=== PATIENT | male | born 1945 | race Hispanic/Latino ===

== ENCOUNTER 2016-08-19 17:58 | Inpatient (IN) | payer MEDICARE ==
[2016-08-19 18:01] VITALS: BMI 27.7
[2016-08-19] MEDS ORDERED: Multivitamin (MVI) 10 ML, Folic Acid 1 MG, Thiamine 100 MG in Dextrose 5%/0.45% NS 1,00... IV ONE (18:04)
[2016-08-19] MEDS ORDERED: diltiaZEM 100 mg Vial ( ADD-VANTAGE ) IV ONE (18:12)
--- NOTE | 2016-08-19 18:22 | ED PDOC ---
HPI: Seizure Time Seen by Provider: 08/19/16 18:00 Chief Complaint (Nursing): Seizure Chief Complaint (Provider): Seizure History Per: EMS History/Exam Limitations: clinical condition Recent Seizure Activity Began: Just Before Arrival Number Of Seizures: Multiple (3) Additional History Per: EMS Additional Complaint(s): The pt is a 71yo male, brought to the ED by EMS for evaluation of 3x episodes of witnessed seizures. A full HPI and ROS is unavailable as pt is not a reliable historian due to his clinical condition. History recorded per EMS and prior charts; pt was given Ativan on field and was post ictal upon arrival. Noted left sided weakness. Based on previous charts, patient has history of alcohol withdrawals, seizures, CVA, HTN, AFib and CHF. Per EMS, the family reported the pt had recently stopped drinking alcohol and is non-compliant with his medications. PCP: Dr. Carver NIHSS Stroke Scale - Date/Time Evaluation Performed Date Performed: 08/19/16 Time Performed: 06:20 When Was NIHSS Performed: Baseline - How Severe is the Stroke Level of Consciousness: 1=Drowsy LOC to Questions: 1=One correct LOC to commands: 1=Obeys one correctly Best Gaze: 0=Normal Visual: 0=No visual loss Facial: 0=Normal Motor Arm - Left: 4=No movement Motor Arm - Right: 0=No drift Motor Leg - Left: 4=No movement Motor Leg - Right: 0=No drift Limb Ataxia: 0=Absent Sensory: 1=Mild to moderate loss Best Language: 1=Mild to moderate aphasia Dysarthia: 0=Normal articulation Extinction & Inattention (Neglect): 0=Normal, no object Score: 13 rTPA Inclusion/Exclusion - Inclusion Criteria for Altepase Patient is 18 years or Older: Yes The Clinical Diagnosis of Ischemic Stroke That is Causing a Potentially Disabling Neurological Deficit: Yes Time of Onset is Well Established to be Less Than 270 Minute Before Treatment Would Begin: No Risk/Benefit Discussed With Patient/Family Member Present: No Past Medical History Reviewed: Historical Data, Nursing Documentation, Vital Signs Vital Signs: Last Vital Signs Temp 98.8 F 08/20/16 08:00 Pulse 88 08/20/16 08:00 Resp 16 08/20/16 08:00 BP 122/46 L 08/20/16 08:00 Pulse Ox 100 08/20/16 08:00 - Medical History PMH: Alzheimer's Disease (early stage of alzheimer), Arthritis, Atrial Fibrillation, CAD, Cardia Arrhythmia, CHF, HTN, Hypercholesterolemia, Seizures Denies: HIV, Kidney Stones, Chronic Kidney Disease - Surgical History Surgical History: CABG, Coronary Stent - Family History Family History: States: Unknown Family Hx - Home Medications Home Medications: Ambulatory Orders Medication Instructions Recorded Aspirin [Aspirin EC] 325 mg PO DAILY #0 tablet 11/02/15 Atorvastatin [Lipitor] 20 mg PO DAILY #0 tab 11/02/15 Enoxaparin [Lovenox] 40 mg SC DAILY #0 syr 11/02/15 Finasteride [Proscar] 5 mg PO DAILY #0 tab 11/02/15 Folic Acid 1 mg PO DAILY #0 tab 11/02/15 Lisinopril [Zestril] 10 mg PO DAILY@1700 #0 tab 11/02/15 Metoprolol Tartrate [Lopressor] 12.5 mg PO Q12 #0 tab 11/02/15 Multimineral/Multivitamin 1 tab PO DAILY #0 tab 11/02/15 [Therapeutic-M Tab] Pantoprazole [Protonix EC Tab] 40 mg PO BID@1300,2100 #0 ect 11/02/15 Thiamine [Vitamin B-1] 100 mg PO TID #0 tab 11/02/15 amLODIPine [Norvasc] 10 mg PO DAILY #0 tab 11/02/15 cefTRIAXone 1 gm [Rocephin 1 gram 1 gm IVPB DAILY #0 bag 11/02/15 IVPB] cloNIDine 0.1 mg/24 hr [catapres 1 patch TD Q7D #0 patch 11/02/15 TTS1 0.1 mg/24 hr] hydrALAZINE [hydralazine 25 mg PO TID #0 tab 11/02/15 Hydrochloride] - Allergies Allergies/Adverse Reactions: Allergies Allergy/AdvReac Type Severity Reaction Status Date / Time No Known Allergies Allergy Verified 09/15/15 10:46 Review of Systems ROS Statement: Except As Marked, All Systems Reviewed And Found Negative Review Of Systems: ROS cannot be obtained secondary to pt's inabilty to answer questions. Neurological: Positive for: Seizures (x3) Physical Exam - Reviewed Nursing Documentation Reviewed: Yes Vital Signs Reviewed: Yes - Physical Exam Appears: Positive for: Well, Non-toxic, No Acute Distress Head Exam: Positive for: ATRAUMATIC, NORMAL INSPECTION, NORMOCEPHALIC Skin: Positive for: Dry, Diaphoresis Eye Exam: Positive for: Normal appearance, EOMI, PERRL ENT: Positive for: Normal ENT Inspection Neck: Positive for: Normal, Supple Cardiovascular/Chest: Positive for: Irregularly Irregular Respiratory: Positive for: Other (coarse breath sounds bilaterally ) Pulses-Radial (L): 2+ Pulses-Radial (R): 2+ Gastrointestinal/Abdominal: Positive for: Normal Exam, Soft. Negative for: Tenderness Back: Positive for: Normal Inspection Extremity: Negative for: Deformity, Swelling Neurologic/Psych: Positive for: Motor/Sensory Deficits (known left sided weakness to arm and leg; right extremities normal) - Laboratory Results Result Diagrams: 08/20/16 04:25 08/20/16 04:25 - ECG ECG: Positive for: Interpreted By Me, Viewed By Me ECG Rhythm: Positive for: Normal QRS, Normal ST Segment, Atrial Fibrillation, Nonspecific Changes Interpretation Of Abn EKG: LAD Rate: 118 O2 Sat by Pulse Oximetry: 95 - Radiology X-Ray: Interpreted by Me, Viewed By Me X-Ray Interpretation: Infiltrates - Critical Care Total Time (In Min): 60 Documented Critical Care: Time excludes all time spent performint seperately billable procedures Medical Decision Making Medical Decision Making: Time: 1800 Impression: Seizure Plan: -- CT Head -- Ammonia -- Hemoglobin A1C -- Liver Profile -- Prolactin -- Vitamin B12 -- Cardiology Consult -- Neurology Consult -- ED Urine dipstick -- EKG- ED -- CBC with differential -- PTT -- Prothrombin Time -- CXR -- Aspirin 300 mg AL -- Dextrose 5%/1000 ml IV 125 ml/hr -- Cardizem 125mg/125 ml NS -- Cardizem 15 mg IVP -- Lovenox 100 mg SC -- Magnesium Sulfate 2gm/100 ml IVPB -- Zosyn 3.375 gm IVPB -- Blood Culture -- UA -- Reassess Time: 1824 EXAM: CT Head Without Intravenous Contrast CLINICAL HISTORY: 71 years old, male; Signs and symptoms; Other: Seizure; Patient HX: HX of seizure TECHNIQUE: Axial computed tomography images of the head/brain without intravenous contrast. This CT exam was performed using one or more of the following dose reduction techniques: automated exposure control, adjustment of the mA and/or kV according to patient size, and/or use of iterative reconstruction technique. Coronal and sagittal reformatted images were created and reviewed. EXAM DATE/TIME: 08/19/2016 6:01 PM COMPARISON: CT - HEAD W/O CONTRAST 10/29/2015 9:17:38 PM FINDINGS: Brain: There is dilatation of sulci gyri and ventricles. There is no midline shift. There is decreased attenuation in periventricular white matter. There is an old left periventricular white matter infarct. There is an old right occipital infarct. There is less extensive left occipital encephalomalacia, unchanged. There is an old right cerebellar infarct. There are no focal masses. There are no focal hemorrhages. Carter-white differentiation is visualized. Ventricles: See above Bones/joints: Bones: Cranial vault is intact. Soft tissues: unremarkable Sinuses: There is no acute sinusitis. There is minimal mucoperiosteal thickening in the maxillary sinuses. Mastoid air cells: Ears and mastoids: Middle ears and mastoids are unremarkable. Orbits: Orbital contents are unremarkable. IMPRESSION: Atrophy and small vessel disease; old infarcts; no bleed; no acute intracranial abnormality Time: [address] Celestin, neurologist math interventionist who agrees that pt is not a candidate for TPA due to seizures. Agrees with anticoagulation. Do not recommends AED at this time. Possibility of DT Patient has history of CHF and can not be given IVF boolus as per sepsis protocol. Pt is in CHF at this time. Lactate is elevated above 4 is likely more from recent multiple seizures than from infection. Pt has have sepsis criteria but no code sepsis in my opinion: not hypotensive and no signs of shock and lactic acid is elevated from seizures. Diff include DTs from alcohol who presents as sepsis. Time: [address] Greer, precision layout worker math interventionist. Case discussed with Dr. James, hoop riveting machine operator helper. Pt to be admitted to ICU. Scribe Attestation: Documented by Jonna Jensen acting as a scribe for Shaila Bagley MD. Provider Attestation: All medical record entries made by the Scribe were at my direction and personally dictated by me. I have reviewed the chart and agree that the record accurately reflects my personal performance of the history, physical exam, medical decision making, and the department course for this patient. I have also personally directed, reviewed, and agree with the discharge instructions and disposition. Disposition - Clinical Impression Clinical Impression: Seizure disorder, Sepsis, CVA (cerebral vascular accident), Severe sepsis, Alcohol withdrawal seizure, Atrial fibrillation with RVR, CHF (congestive heart failure), Pneumonia, ARF (acute renal failure) - Patient ED Disposition Is Patient to be Admitted: Yes Discussed With : Neymar rGeer Doctor Will See Patient In The: ED - Disposition Disposition Time: 18:50 Condition: CRITICAL - Pt Status Changed To: Hospital Disposition Of: Inpatient - Admit Certification Admit to Inpatient:: After my assessment, the patient will require hospitalization for at least two midnights. This is because of the severity of symptoms shown, intensity of services needed, and/or the medical risk in this patient being treated as an outpatient. - POA Present On Arrival: Poor Glycemic Control Core Measure Indicators: Code Stroke, Pneumonia
--- NOTE | 2016-08-19 18:25 | CT ---
EXAM: CT Head Without Intravenous Contrast CLINICAL HISTORY: 71 years old, male; Signs and symptoms; Other: Seizure; Patient HX: HX of seizure TECHNIQUE: Axial computed tomography images of the head/brain without intravenous contrast. This CT exam was performed using one or more of the following dose reduction techniques: automated exposure control, adjustment of the mA and/or kV according to patient size, and/or use of iterative reconstruction technique. Coronal and sagittal reformatted images were created and reviewed. EXAM DATE/TIME: 08/19/2016 6:01 PM COMPARISON: CT - HEAD W/O CONTRAST 10/29/2015 9:17:38 PM FINDINGS: Brain: There is dilatation of sulci gyri and ventricles. There is no midline shift. There is decreased attenuation in periventricular white matter. There is an old left periventricular white matter infarct. There is an old right occipital infarct. There is less extensive left occipital encephalomalacia, unchanged. There is an old right cerebellar infarct. There are no focal masses. There are no focal hemorrhages. Carter-white differentiation is visualized. Ventricles: See above Bones/joints: Bones: Cranial vault is intact. Soft tissues: unremarkable Sinuses: There is no acute sinusitis. There is minimal mucoperiosteal thickening in the maxillary sinuses. Mastoid air cells: Ears and mastoids: Middle ears and mastoids are unremarkable. Orbits: Orbital contents are unremarkable. IMPRESSION: Atrophy and small vessel disease; old infarcts; no bleed; no acute intracranial abnormality
[2016-08-19] MEDS ORDERED: Enoxaparin 100 mg Syringe SC STA (18:28)
[2016-08-19 18:30] LABS: BASO % 0.2 % (0.0-2.0); HEMOGLOBIN 13.7 g/dL (12.0-18.0); LYMPH # 0.7 K/uL (1.0-4.3); LYMPH % 6.8 % (20.0-40.0); MEAN CELL VOLUME 102.6 fl (80.0-94.0); MEAN CORPUSCULAR HEMOGLOBIN 34.8 pg (27.0-31.0); MEAN CORPUSCULAR HGB CONC 33.9 g/dL (33.0-37.0); MONO # 0.8 K/uL (0.0-0.8); MONO % 7.7 % (0.0-10.0); NEUT # 8.7 K/uL (1.8-7.0); NEUT % 85.3 % (50.0-75.0); NRBC % 0.1 % (0.0-0.0); RBC 3.95 Mil/uL (4.40-5.90); RED CELL DISTRIBUTION WIDTH 15.6 % (11.5-14.5); WHITE BLOOD COUNT 10.1 K/uL (4.8-10.8)
[2016-08-19 18:32] LABS: VENOUS BLOOD GAS BASE EXCESS 3.7 mmol/L (0.0-2.0); VENOUS BLOOD GAS PCO2 39 mmHg (40-60); VENOUS BLOOD GAS PO2 20 mm/Hg (30-55); VENOUS BLOOD PH 7.46 (7.32-7.43)
[2016-08-19 18:41] LABS: ALBUMIN 3.9 g/dL (3.5-5.0); ALT/SGPT 59 U/L (21-72); AST/SGOT 59 U/L (17-59); BLOOD UREA NITROGEN 32 mg/dl (9-20); CALCIUM 8.8 mg/dL (8.4-10.2); GFR AFRICAN-AMERICAN 43; GFR NON-AFRICAN AMERICAN 35; MAGNESIUM 1.5 MG/DL (1.6-2.3)
[2016-08-19] MEDS ORDERED: Piperacillin/Tazobact 3.375 GM in Sodium Chloride 0.9% 100 ML IVPB STA (18:42)
[2016-08-19] MEDS ORDERED: Piperacillin/Tazobact 3.375 gm Inj IVPB ONE (18:49)
--- NOTE | 2016-08-19 19:02 | CP.PCM.CON ---
History of Present Illness - History of Present Illness History of Present Illness: RECURRENT SEIZURES AT HOME WITH HX ETOH ABUSE AT THE FIELD HE GOT ATIVAN FOUND TO BE LEFT HEMIPARESIS Review of Systems - Review of Systems Systems not reviewed;Unavailable: Altered Mental Status, Intoxicated, Uncooperative - Constitutional Constitutional: Fatigue Past Patient History - Tetanus Immunizations Tetanus Immunization: >10 years Ago - Past Medical History & Family History Past Medical History?: Yes - Past Social History Smoking Status: Light Smoker < 10 Cigarettes Daily Alcohol: Other (ETOH ABUSE) Drugs: Methamphetamine - CARDIAC Hx Atrial Fibrillation: Yes Hx Cardia Arrhythmia: Yes Hx Congestive Heart Failure: Yes Hx Hypercholesterolemia: Yes Hx Hypertension: Yes - PULMONARY Hx Respiratory Disorders: No - NEUROLOGICAL Hx 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) Hx 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 DOCUMENTATION ) Hx Seizures: Yes Hx Transient Ischemic Attacks (TIA): Yes - HEENT Hx HEENT Problems: No - RENAL Hx Chronic Kidney Disease: No Hx Kidney Stones: No - ENDOCRINE/METABOLIC Hx Diabetes Mellitus Type 2: Yes - HEMATOLOGICAL/ONCOLOGICAL Hx Human Immunodeficiency Virus (HIV): No - INTEGUMENTARY Hx Dermatological Problems: No - MUSCULOSKELETAL/RHEUMATOLOGICAL Hx Arthritis: Yes - GASTROINTESTINAL Hx Constipation: Yes - GENITOURINARY/GYNECOLOGICAL Hx Genitourinary Disorders: No - PSYCHIATRIC Hx Psychophysiologic Disorder: Yes Hx Substance Use: No - SURGICAL HISTORY Hx Coronary Artery Bypass Graft: Yes Hx Coronary Stent: Yes - ANESTHESIA Hx Anesthesia: Yes Hx Anesthesia Reactions: No Meds Allergies/Adverse Reactions: Allergies Allergy/AdvReac Type Severity Reaction Status Date / Time No Known Allergies Allergy Verified 09/15/15 10:46 - Medications Medications: Current Medications Multivitamins/Vitamin C 10 ml/Folic Acid 1 mg/ Thiamine HCl 100 mg/ Dextrose/ Sodium Chloride 1,011.2 mls @ 125 mls/hr IV .Q8H6M ONE Stop: 08/20/16 02:09 Last Admin: 08/19/16 18:52 Dose: 125 mls/hr Diltiazem HCl 125 mg/ Sodium (Chloride) 125 mls @ 5 mls/hr IV .Q24H ONE; 5 MG/ HR PRN Reason: Protocol Stop: 08/20/16 18:05 Last Admin: 08/19/16 18:52 Dose: 5 mls/hr Piperacillin Sod/Tazobactam (Sod 3.375 gm/ Sodium Chloride) 100 mls @ 100 mls/ hr IVPB STAT STA Stop: 08/19/16 19:41 Last Admin: 08/19/16 18:56 Dose: 100 mls/hr Physical Exam - Constitutional Appears: Toxic, Agitated, Confused, Other Additional comments: SEDATED - Eye Exam Additional comments: APHAKIC - Neck Exam Neck exam: Positive for: Normal Inspection - Neurological Exam Neurological exam: Motor Sensory Deficit - Expanded Neurological Exam Expanded Neurological exam: Tremor Patient oriented to: person Speech: Stutter Cranial nerves: Facial Palsey w/Forehead Movement: Abnormal Left, Facial Sensation: Normal, Gag Reflex: Normal (IMPAIRED ), Nystagmus: Normal Ataxia: No (LEFT HEMIPLEGIC) Upper motor neuron: Babinski Sign: Abnormal Left Results - Vital Signs Recent Vital Signs: Last Vital Signs Temp 102 F H 08/19/16 18:00 Pulse 118 H 08/19/16 18:57 Resp 20 08/19/16 18:00 BP 112/64 08/19/16 18:25 Pulse Ox 95 08/19/16 18:57 - Labs Result Diagrams: 08/19/16 18:00 08/19/16 18:00 - Imaging and Cardiology CT scan - head Status: Image reviewed by me (ATROPHY AND OLE INFARCT) Assessment & Plan (1) Alcohol abuse with alcohol-induced disorder Assessment and Plan: B1/ AND MVT DT WATCH HYDRATION HOLD FEEDING AFIB ON CARDIAZEM DRIP AND LOVENOX CHECK EEG / MRI ANTIBIOTIC APPROPRIATE FOR HIS PNUEMONIA SOCIAL SERVICE NO AED FOR HIM NOW CAROTID AND MRI Status: Acute - Date & Time Date: 08/19/16 Time: 19:10
[2016-08-19 19:05] LABS: B-TYPE NATRIURETIC PEPTIDE 34800 pg/ml (0-900)
[2016-08-19] MEDS ORDERED: Magnesium Sulfate 2 GM in Sodium Chloride 0.9% 100 ML IVPB ONE (19:07)
--- NOTE | 2016-08-19 19:38 | CP.PCM.HP ---
History of Present Illness - History of Present Illness History of Present Illness: PCP: jim Carver MD Chief Complaint: Seizure HPI: The hx is obtained from the medical records as the patient is lethargic and post ictal. He is a 71 years old male with hx of non compliance with medication, CVA, CAD s/p CABG, CHF, Alcohol abuse and intoxication, A Fib, and Seizure who was brought from home to the ED because of 3 episodes of witnessed seizures. The EMS administered Ativan 2mg IV. In the ED the patient was found to be in A Fib with rapid response, have a Temperature of 102F, Dysarthric, with left side weakness and a NIHSS of 13. No TPA given because of the patient' s Rapid A Fib and the multiple seizures. He indicated that he had been coughing. PMH: (early stage of alzheimer), Arthritis, Atrial Fibrillation, CAD, CHF, HTN , HLD, Seizures, PVD, Diverticulosis, CVA PSH: CABG, Coronary Stent SH: Light smoker; Former Alcohol abuser with admissions for Intoxications, Live with family, No illegal drug use FH: Unknown Family Hx Allergies: NKDA Present on Admission - Present on Admission Any Indicators Present on Admission: No History of DVT/PE: No History of Uncontrolled Diabetes: No Urinary Catheter: No Decubitus Ulcer Present: No Review of Systems - Review of Systems Systems not reviewed;Unavailable: Altered Mental Status Review of Systems: Review of systems is limited because of the patient is post ictal and lethargic Past Patient History - Tetanus Immunizations Tetanus Immunization: >10 years Ago - Past Medical History & Family History Past Medical History?: Yes - Past Social History Smoking Status: Light Smoker < 10 Cigarettes Daily Chewing Tobacco Use: No Cigar Use: No Alcohol: Other (ETOH ABUSE) Drugs: Methamphetamine Home Situation {Lives}: With Family - CARDIAC Hx Atrial Fibrillation: Yes Hx Cardia Arrhythmia: Yes Hx Congestive Heart Failure: Yes Hx Hypercholesterolemia: Yes Hx Hypertension: Yes - PULMONARY Hx Respiratory Disorders: No - NEUROLOGICAL Hx 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) Hx Seizures: Yes - HEENT Hx HEENT Problems: No - RENAL Hx Chronic Kidney Disease: No Hx Kidney Stones: No - ENDOCRINE/METABOLIC Hx Diabetes Mellitus Type 2: Yes - HEMATOLOGICAL/ONCOLOGICAL Hx Human Immunodeficiency Virus (HIV): No - INTEGUMENTARY Hx Dermatological Problems: No - MUSCULOSKELETAL/RHEUMATOLOGICAL Hx Arthritis: Yes - GASTROINTESTINAL Hx Constipation: Yes - GENITOURINARY/GYNECOLOGICAL Hx Genitourinary Disorders: No - PSYCHIATRIC Hx Psychophysiologic Disorder: Yes Hx Substance Use: No - SURGICAL HISTORY Hx Coronary Artery Bypass Graft: Yes Hx Coronary Stent: Yes - ANESTHESIA Hx Anesthesia: Yes Hx Anesthesia Reactions: No Meds Allergies/Adverse Reactions: Allergies Allergy/AdvReac Type Severity Reaction Status Date / Time No Known Allergies Allergy Verified 09/15/15 10:46 Physical Exam - Constitutional Appears: No Acute Distress - Head Exam Head Exam: NORMOCEPHALIC - Eye Exam Pupil Exam: NORMAL ACCOMODATION Additional comments: Pupils equal and reacting to light. Left Ptosis - ENT Exam ENT Exam: Mucous Membranes Moist, Normal External Ear Exam, Normal Oropharynx - Neck Exam Neck exam: Positive for: Normal Inspection. Negative for: Lymphadenopathy, Tenderness - Respiratory Exam Respiratory Exam: absent: Rhonchi, Wheezes Additional comments: Inspiratory rales at the right lung base - Cardiovascular Exam Cardiovascular Exam: Irregular Rhythm, +S1, +S2. absent: Gallop, JVD - GI/Abdominal Exam GI & Abdominal Exam: Normal Bowel Sounds, Soft. absent: Mass, Organomegaly, Tenderness - Rectal Exam Rectal Exam: Deferred - Extremities Exam Extremities exam: Positive for: normal inspection. Negative for: joint swelling , pedal edema, tenderness - Back Exam Back exam: NORMAL INSPECTION. absent: CVA tenderness (L), CVA tenderness (R) - Neurological Exam Additional comments: Awake and lethargic. opens the right eye with left ptosis, left facial droop, shakes his head to answer most questions, Dysarthric with motor aphasia. Motor strength 0/5 at the left upper extremity and 3/5 at the left lower extremity. - Psychiatric Exam Psychiatric exam: Flat Affect - Skin Skin Exam: Dry, Intact, Normal Color, Warm Results - Vital Signs Recent Vital Signs: Last Vital Signs Temp 102 F H 08/19/16 18:00 Pulse 118 H 08/19/16 19:31 Resp 22 08/19/16 19:08 BP 127/73 08/19/16 19:08 Pulse Ox 95 08/19/16 19:31 - Labs Result Diagrams: 08/19/16 18:00 08/19/16 18:00 - Imaging and Cardiology CT scan - head Status: Image reviewed by me, Report reviewed by me Additional comment: FINDINGS: Brain: There is dilatation of sulci gyri and ventricles. There is no midline shift. There is decreased attenuation in periventricular white matter. There is an old left periventricular white matter infarct. There is an old right occipital infarct. There is less extensive left occipital encephalomalacia, unchanged. There is an old right cerebellar infarct. There are no focal masses. There are no focal hemorrhages. Carter-white differentiation is visualized. Ventricles: See above Bones/joints: Bones: Cranial vault is intact. Soft tissues: unremarkable Sinuses: There is no acute sinusitis. There is minimal mucoperiosteal thickening in the maxillary sinuses. Mastoid air cells: Ears and mastoids: Middle ears and mastoids are unremarkable. Orbits: Orbital contents are unremarkable. IMPRESSION: Atrophy and small vessel disease; old infarcts; no bleed; no acute intracranial abnormality Assessment & Plan - Assessment and Plan (Free Text) Assessment: #. Status Epilepticus #. Pneumonia #. Sepsis #. A Fib with RVR #. CHF #. Elevated Troponin #. JONELLE #. hyperglycemia #. Chronic Thrombocytopenia Plan: 71 years old male with hx of non compliance with medication, CVA, CAD s/p CABG , CHF, Alcohol abuse with intoxication, A Fib, and Seizure who was brought from home to the ED because of 3 episodes of witnessed seizures. In the ED the patient was found to be in A Fib with rapid response, have a Temperature of 102F , Dysarthric, with left side weakness and a NIHSS of 13. #. Status Epilepticus due to Alcohol withdrawal v/s CVA - Admit to ICU - Consult Dr Celestin neurology who ordered EEG - Ativan 2mg IV q6Hrs PRN for seizures #. Left side weakness due to an acute on chronic CVA most likely. r/o Todds Paralysis - Neurology on consult and ordered MRI and MRA of Brain and Carotid arteries - Neuro checks q1Hour - Swallow evaluation - ASA - Lipitor before discharge - OT/PT #. Aspiration Pneumonia - Consult Dr Rodriguez Avionics Repair Technician - follow repeated CXR - Zosyn #. Severe Sepsis - consult Dr Tello ID - follow Blood culture - Zosyn #. A Fib with RVR - Cardiac monitoring - Consult Dr James cardiology - Lovenox 1mg/kg - Cardizem IV drip #. Chronic CHF - Cardiology on consult - ECHO for EF - Judicious use of IV Fluids - #. Elevated Troponin r/o NSTEMI - Follow Serial troponin - serial EKG - ECHO for wall motion #. JONELLE - IV Fluids - Follow Renal labs #. hHperglycemia r/o DM - Follow HbA1c #. Chronic Thrombocytopenia #. Stress ulcer prophylaxis with pantoprazole #. DVT Prophylaxis -Patient on Sub Q lovenox and SCD #. Code Status Full - Date & Time Date: 08/19/16 Time: 19:38
[2016-08-19] MEDS ORDERED: Magnesium Sulfate 2 gm/50 ml 2 GM/50 ML BAG IVPB ONE (19:45)
[2016-08-19 20:14] LABS: ALB/GLOB RATIO 0.9 (1.0-2.1); ALBUMIN 3.6 g/dL (3.5-5.0); BILIRUBIN,DIRECT 0.5 mg/ml (0.0-0.4)
[2016-08-19 20:22] LABS: PLATELET COUNT 95 K/uL (130-400)
[2016-08-19 20:26] LABS: PROTHROMBIN TIME 10.8 Seconds (9.8-13.1)
[2016-08-19 20:27] LABS: PARTIAL THROMBOPLASTIN TIME 22.9 Seconds (25.6-37.1)
[2016-08-19 20:40] LABS: SQUAMOUS EPITHIAL < 1 /hpf (0-5); URINE BACTERIA RARE (<OCC); URINE BILIRUBIN SMALL (NEGATIVE); URINE BLOOD SMALL (NEGATIVE); URINE CLARITY CLOUDY (Clear); URINE COLOR AMBER (YELLOW); URINE GLUCOSE (UA) NEG (Normal); URINE LEUKOCYTE ESTERASE MOD Leu/uL (Negative); URINE NITRATE NEGATIVE (NEGATIVE); URINE PROTEIN >=500 mg/dL (NEGATIVE)
[2016-08-20] MEDS: Enoxaparin 100 mg Syringe SC SCH ×2 (01:00→08:52)
[2016-08-20] MEDS: Dextrose 5%/0.45% NS 1,000 ML IV SCH ×2 (03:05→12:44)
[2016-08-20] MEDS: Piperacillin/Tazobact 3.375 GM in Sodium Chloride 0.9% 100 ML IVPB SCH ×2 (05:00→09:01)
[2016-08-20 05:11] LABS: BASO % 0.4 % (0.0-2.0); EOS % 0.1 % (0.0-4.0); HEMOGLOBIN 11.8 g/dL (12.0-18.0); LYMPH # 1.3 K/uL (1.0-4.3); LYMPH % 12.5 % (20.0-40.0); MEAN CELL VOLUME 103.3 fl (80.0-94.0); MEAN CORPUSCULAR HEMOGLOBIN 35.1 pg (27.0-31.0); MEAN PLATELET VOLUME 10.4 fl (7.2-11.7); MONO # 1.1 K/uL (0.0-0.8); NEUT # 8.3 K/uL (1.8-7.0); NRBC % 0.1 % (0.0-0.0); RBC 3.37 Mil/uL (4.40-5.90); RED CELL DISTRIBUTION WIDTH 15.6 % (11.5-14.5); WHITE BLOOD COUNT 10.7 K/uL (4.8-10.8)
[2016-08-20 05:21] LABS: ALB/GLOB RATIO 0.9 (1.0-2.1); ALBUMIN 3.2 g/dL (3.5-5.0); MAGNESIUM 1.9 MG/DL (1.6-2.3)
[2016-08-20 05:31] LABS: TROPONIN I 0.592 ng/mL (0.00-0.120)
--- NOTE | 2016-08-20 07:07 | CP.PCM.PN ---
Subjective - Date & Time of Evaluation Date of Evaluation: 08/20/16 Time of Evaluation: 08:00 - Subjective Subjective: Patient seen and evaluated bedside. Awake, alert and oriented x 3 with slurred speech and left side weakness . Does not remember what happened yesterday. Hemodynamically stable at present BP 122/46, afib on monitor with controlled HR 88 while on cardizem drip Complaining of coughing episodes unable to expectorate Tmax 102 in ER Saturating 100 % on 2 L O2 via NC WBC 10 Hgb 11 plt 81 K K 3.0 BUN/Cr 30/1.6 trop 0.59 Objective - Vital Signs/Intake and Output Vital Signs (last 24 hours): Temp Pulse Resp BP Pulse Ox 98.1 F 88 16 130/85 98 08/20/16 04:00 08/20/16 06:00 08/20/16 06:00 08/20/16 06:00 08/20/16 06:00 Intake and Output: 08/20/16 08/20/16 06:59 18:59 Intake Total 225 Balance 225 - Medications Medications: Current Medications Aspirin (Aspirin Supp) 300 mg KS DAILY ROBERT Enoxaparin Sodium (Lovenox) 95 mg SC Q12 ROBERT PRN Reason: Protocol Last Admin: 08/20/16 01:00 Dose: 95 mg Diltiazem HCl 125 mg/ Sodium (Chloride) 125 mls @ 5 mls/hr IV .Q24H ONE; 5 MG/ HR PRN Reason: Protocol Stop: 08/20/16 18:05 Last Admin: 08/20/16 03:01 Dose: 10 mg/hr, 10 mls/hr Piperacillin Sod/Tazobactam (Sod 3.375 gm/ Sodium Chloride) 100 mls @ 100 mls/ hr IVPB Q6 ROBERT Last Admin: 08/20/16 05:00 Dose: 100 mls/hr Dextrose/Sodium Chloride (Dextrose 5%/0.45% Ns 1000 Ml) 1,000 mls @ 125 mls/hr IV .Q8H [facility] Stop: 08/20/16 20:38 Last Admin: 08/20/16 03:05 Dose: 125 mls/hr Potassium Chloride (Potassium Cl 10meq/50ml Sterile Water) 50 mls @ 50 mls/hr IVPB Q1 [facility] Stop: 08/20/16 11:59 Lorazepam (Ativan) 2 mg IVP Q6 PRN PRN Reason: Seizure activity Pantoprazole Sodium (Protonix Inj) 40 mg IVP DAILY ROBERT - Labs Labs: 08/20/16 04:25 08/20/16 04:25 PT 10.8 Seconds (9.8-13.1) 08/19/16 18:00 INR 1.0 (0.9-1.2) 08/19/16 18:00 APTT 22.9 Seconds (25.6-37.1) L 08/19/16 18:00 - Constitutional Appears: No Acute Distress, Other (with slurred speech and left side weakness) - Head Exam Head Exam: ATRAUMATIC, NORMOCEPHALIC - Eye Exam Eye Exam: EOMI, PERRL Pupil Exam: NORMAL ACCOMODATION - ENT Exam ENT Exam: Mucous Membranes Moist, Normal Exam - Neck Exam Neck Exam: Normal Inspection - Respiratory Exam Respiratory Exam: Decreased Breath Sounds (bibasilar ), Clear to Ausculation Bilateral. absent: Rales, Rhonchi, Wheezes - Cardiovascular Exam Cardiovascular Exam: Irregular Rhythm. absent: JVD - GI/Abdominal Exam GI & Abdominal Exam: Soft, Normal Bowel Sounds. absent: Distended, Guarding, Tenderness, Rebound - Rectal Exam Rectal Exam: Deferred - Extremities Exam Extremities Exam: Full ROM, Normal Capillary Refill, Normal Inspection. absent : Calf Tenderness, Pedal Edema - Neurological Exam Neurological Exam: Alert, Awake, Oriented x3 Additional comments: left facial droop expressive aphasia and dysarthria LUE 3/5 LLE 4/5 - Psychiatric Exam Psychiatric exam: Normal Affect - Skin Skin Exam: Dry, Pallor, Warm Assessment and Plan - Assessment and Plan (Free Text) Assessment: 71 years old male with hx of non compliance with medication, CVA, CAD s/p CABG, CHF, Alcohol abuse with intoxication, A Fib, and Seizure who was brought from home to the ED because of 3 episodes of witnessed seizures. In the ED patient was found to be in A Fib with rapid response, have a Temperature of 102F , Dysarthric, with left side weakness and a NIHSS of 13. 1. Status Epilepticus due to Alcohol withdrawal vs CVA no more seizure episodes since admission CT head showed old CVA Neurology consulted . Dr. Celestin Hold anti seizure medications for now ativan PRN Follow up MRI head and EEG Thiamine, folic acid , MVI 2. Left side weakness most likely due to acute on chronic CVA r/o T[place] Paralysis CT head showed old CVA Neurology on consult and ordered MRI and MRA of Brain and Carotid arteries Continue Neuro checks q1Hour Swallow eval bedside appreciated . started puree diet with thickened liquids Continue ASA, statin OT/PT 3. Suspected Aspiration Pneumonia Tmax 102 on admission with coughing spells that has been going on for months as per patient Consult Dr Rodriguez Sand Miller ID consult appreciated repeat CXR Continue Zosyn empirically f/u blood and sputum cx O2 via NC Start Mucinex 4. Suspected Sepsis follow up blood , urine and sputum cx Repeat CXR Continue Zosyn lactic acid elevation consult with Dr Tello ID appreciated 5. A Fib with RVR rate controlled on cardizem drip Started Cardizem Po and Metoprolol on Lovenox therapeutic. Will discuss with cardiology about starting on NOAKs cardiology cosnult with Dr James appreciated follow up Echo 6. Elevated Troponin probably related to Afib with RVR but also will need to rule out NSTEMI cardiology consulted follow up Echo Continue ASA, statin, lopressor 7. Chronic CHF ( unclear type) Cardiology consulted Follow up ECHO for EF 8. JONELLE Most likely prerenal check CPK Continue IVF and repeat BMP 9. Hyperglycemia r/o DM Follow HbA1c 10. Chronic Thrombocytopenia plt 81 k Most likely related to ETOH abuse 11. Stress ulcer prophylaxis pantoprazole 12. DVT Prophylaxis lovenox and SCD 13. Hypokalemia replace with KCl 14. History of ETOH dependence / alcoholism ETOH levels < 10 started thiamine, Folic acid Ativan PRN for seizure
[2016-08-20] MEDS: Potassium CL 10 MEQ/50 ML 50 ML IVPB SCH ×4 (08:53→12:00)
--- NOTE | 2016-08-20 09:47 | CARD ---
APPROVED REPORT EKG Measurement Heart [id number] <Conclusion> Atrial fibrillation Left axis deviation Minimal voltage criteria for LVH, may be normal variant Anterior infarct, age undetermined ST & Marked T wave abnormality, consider inferolateral ischemia Prolonged QT Abnormal ECG
--- NOTE | 2016-08-20 09:47 | CARD ---
APPROVED REPORT EKG Measurement Heart [id number] <Conclusion> Atrial fibrillation with rapid ventricular response Left axis deviation Anterior infarct, age undetermined ST & T wave abnormality, consider lateral ischemia Abnormal ECG
--- NOTE | 2016-08-20 11:00 | RAD ---
PROCEDURE: CHEST RADIOGRAPH, 1 VIEW HISTORY: atrial fibrillation COMPARISON: 10/29/2015. FINDINGS: LUNGS: Clear. PLEURA: No pneumothorax or pleural fluid seen. CARDIOVASCULAR: Cardiomegaly. No evidence of acute, significant cardiovascular disease. Incidental Finding(s): Postoperative changes related to sternotomy. OSSEOUS STRUCTURES: No significant abnormalities. VISUALIZED UPPER ABDOMEN: Normal. OTHER FINDINGS: None. IMPRESSION: No active disease. No acute/significant interval changes.
--- NOTE | 2016-08-20 11:14 | CP.PCM.CON ---
History of Present Illness - History of Present Illness History of Present Illness: Infectious Disease Consultation Note- HPI- History obtained from the nurse and the medical chart as the patient is drowsy and only opens his eyes when his name is called. Patient is a 71 year old amle with pmh of CAD, CHF, A.fib, seizures, CVA with left sided weakness who was brought to the hospital from home bc of 3 episodes of witnessed seizures. as per med records he was given 2 mg of ativan by EMS and in ED he was in rapid a.fib and temp of 102 , dysarthric and left sided weakness . Pt. is currently in ICU not in any acute distress but is very drowsy and has occasional jerkilike movement sof his right arm. I'm called to evaluate bc of the high lactic acid level and the fever in ED and rule out sepsis. PMH: (early stage of alzheimer), Arthritis, Atrial Fibrillation, CAD, CHF, HTN , HLD, Seizures, PVD, Diverticulosis, CVA PSH: CABG, Coronary Stent SH: Light smoker; Former Alcohol abuser with admissions for Intoxications, Live with family, No illegal drug use FH: Unknown Family Hx Allergies: NKDA Review of Systems - Review of Systems Review of Systems: ROS- Unable to obtain as pt. drowsy and does not answer any of my questions and only opens his eyes. Past Patient History - Tetanus Immunizations Tetanus Immunization: >10 years Ago - Past Medical History & Family History Past Medical History?: Yes - Past Social History Smoking Status: Light Smoker < 10 Cigarettes Daily Chewing Tobacco Use: No Cigar Use: No Alcohol: Other (ETOH ABUSE) Home Situation {Lives}: With Family - CARDIAC Hx Atrial Fibrillation: Yes Hx Cardia Arrhythmia: Yes Hx Congestive Heart Failure: Yes Hx Hypercholesterolemia: Yes Hx Hypertension: Yes - PULMONARY Hx Respiratory Disorders: No - NEUROLOGICAL Hx 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) Hx Seizures: Yes - HEENT Hx HEENT Problems: No - RENAL Hx Chronic Kidney Disease: No Hx Kidney Stones: No - ENDOCRINE/METABOLIC Hx Diabetes Mellitus Type 2: Yes - HEMATOLOGICAL/ONCOLOGICAL Hx Blood Disorders: No - INTEGUMENTARY Hx Dermatological Problems: No - MUSCULOSKELETAL/RHEUMATOLOGICAL Hx Arthritis: Yes - GASTROINTESTINAL Hx Constipation: Yes - GENITOURINARY/GYNECOLOGICAL Hx Genitourinary Disorders: No - PSYCHIATRIC Hx Psychophysiologic Disorder: Yes Hx Substance Use: No - SURGICAL HISTORY Hx Coronary Artery Bypass Graft: Yes Hx Coronary Stent: Yes - ANESTHESIA Hx Anesthesia: Yes Hx Anesthesia Reactions: No Meds Allergies/Adverse Reactions: Allergies Allergy/AdvReac Type Severity Reaction Status Date / Time No Known Allergies Allergy Verified 09/15/15 10:46 - Medications Medications: Current Medications Aspirin (Aspirin Supp) 300 mg ID DAILY [facility] Last Admin: 08/20/16 09:06 Dose: 300 mg Enoxaparin Sodium (Lovenox) 95 mg SC Q12 ROBETR PRN Reason: Protocol Last Admin: 08/20/16 08:52 Dose: 95 mg Diltiazem HCl 125 mg/ Sodium (Chloride) 125 mls @ 5 mls/hr IV .Q24H ONE; 5 MG/ HR PRN Reason: Protocol Stop: 08/20/16 18:05 Last Admin: 08/20/16 03:01 Dose: 10 mg/hr, 10 mls/hr Piperacillin Sod/Tazobactam (Sod 3.375 gm/ Sodium Chloride) 100 mls @ 100 mls/ hr IVPB Q6 [facility] Last Admin: 08/20/16 09:01 Dose: 100 mls/hr Dextrose/Sodium Chloride (Dextrose 5%/0.45% Ns 1000 Ml) 1,000 mls @ 125 mls/hr IV .Q8H [facility] Stop: 08/20/16 20:38 Last Admin: 08/20/16 03:05 Dose: 125 mls/hr Potassium Chloride (Potassium Cl 10meq/50ml Sterile Water) 50 mls @ 50 mls/hr IVPB Q1 [facility] Stop: 08/20/16 11:59 Last Admin: 08/20/16 10:59 Dose: 50 mls/hr Lorazepam (Ativan) 2 mg IVP Q6 PRN PRN Reason: Seizure activity Pantoprazole Sodium (Protonix Inj) 40 mg IVP DAILY [facility] Last Admin: 08/20/16 08:55 Dose: 40 mg Physical Exam - Constitutional Appears: No Acute Distress Additional comments: drowsy and only opnes his eyes when his name is called - Head Exam Head Exam: ATRAUMATIC - ENT Exam Additional comments: dry oral mucosa - Neck Exam Neck exam: Positive for: Full Rom Additional comments: supple - Respiratory Exam Respiratory Exam: NORMAL BREATHING PATTERN Additional comments: no wheezing good aeration b/l - Cardiovascular Exam Cardiovascular Exam: RRR, +S1, +S2 - GI/Abdominal Exam GI & Abdominal Exam: Normal Bowel Sounds, Soft Additional comments: NT, ND - Extremities Exam Additional comments: No edema b/l LE - Neurological Exam Additional comments: drowsy and only opens his eyes when his name is called, occasional right arm jerk like movements Results - Vital Signs Recent Vital Signs: Last Vital Signs Temp 98.8 F 08/20/16 08:00 Pulse 118 H 08/20/16 10:16 Resp 15 08/20/16 10:00 BP 169/103 H 08/20/16 10:00 Pulse Ox 95 08/20/16 10:16 - Labs Result Diagrams: 08/20/16 04:25 08/20/16 04:25 Labs: Laboratory Results - last 24 hr 08/19/16 08/19/16 08/19/16 19:57 19:57 20:00 WBC RBC Hgb Hct MCV MCH MCHC RDW Plt Count MPV Neut % (Auto) Lymph % (Auto) [place] % (Auto) Eos % (Auto) Baso % (Auto) Neut # Lymph # [place] # Eos # Baso # Sodium Potassium Chloride Carbon Dioxide Anion Gap BUN Creatinine Est GFR ( Amer) Est GFR (Non-Af Amer) POC Glucose (mg/dL) Random Glucose Hemoglobin A1c 5.2 Calcium Magnesium Total Bilirubin 2.1 H Direct Bilirubin 0.5 H AST 58 ALT 54 Alkaline Phosphatase 68 Ammonia 11 L D Troponin I Total Protein 7.6 Albumin 3.6 Globulin 3.9 Albumin/Globulin Ratio 0.9 L Vitamin B12 408 Urine Color Urine Clarity Urine pH Ur Specific [place] Urine Protein Urine Glucose (UA) Urine Ketones Urine Blood Urine Nitrate Urine Bilirubin Urine Urobilinogen Ur Leukocyte Esterase Urine RBC (Auto) Urine Microscopic WBC Ur Squamous Epith Cells Urine Bacteria 08/19/16 08/20/16 08/20/16 20:15 01:02 04:25 WBC 10.7 RBC 3.37 L Hgb 11.8 L Hct 34.8 L MCV 103.3 H MCH 35.1 H MCHC 34.0 RDW 15.6 H Plt Count 81 L MPV 10.4 Neut % (Auto) 77.0 H Lymph % (Auto) 12.5 L [place] % (Auto) 10.0 Eos % (Auto) 0.1 Baso % (Auto) 0.4 Neut # 8.3 H Lymph # 1.3 [place] # 1.1 H Eos # 0.0 Baso # 0.0 Sodium Potassium Chloride Carbon Dioxide Anion Gap BUN Creatinine Est GFR ( Amer) Est GFR (Non-Af Amer) POC Glucose (mg/dL) 120 H Random Glucose Hemoglobin A1c Calcium Magnesium Total Bilirubin Direct Bilirubin AST ALT Alkaline Phosphatase Ammonia Troponin I Total Protein Albumin Globulin Albumin/Globulin Ratio Vitamin B12 Urine Color [place] Urine Clarity Cloudy Urine pH 5.0 Ur Specific [place] 1.031 H Urine Protein >=500 Urine Glucose (UA) Neg Urine Ketones Trace Urine Blood Small Urine Nitrate Negative Urine Bilirubin Small Urine Urobilinogen 2.0 Ur Leukocyte Esterase Mod Urine RBC (Auto) 13 H Urine Microscopic WBC 14 H Ur Squamous Epith Cells < 1 Urine Bacteria Rare 08/20/16 08/20/16 04:25 06:27 WBC RBC Hgb Hct MCV MCH MCHC RDW Plt Count MPV Neut % (Auto) Lymph % (Auto) [place] % (Auto) Eos % (Auto) Baso % (Auto) Neut # Lymph # [place] # Eos # Baso # Sodium 140 Potassium 3.0 L Chloride 102 Carbon Dioxide 29 Anion Gap 12 BUN 30 H Creatinine 1.6 H Est GFR ( Amer) 52 Est GFR (Non-Af Amer) 43 POC Glucose (mg/dL) 108 Random Glucose 103 Hemoglobin A1c Calcium 8.0 L Magnesium 1.9 Total Bilirubin 2.0 H Direct Bilirubin AST 50 ALT 53 Alkaline Phosphatase 58 Ammonia Troponin I 0.5920 H* Total Protein 6.6 Albumin 3.2 L Globulin 3.4 Albumin/Globulin Ratio 0.9 L Vitamin B12 Urine Color Urine Clarity Urine pH Ur Specific [place] Urine Protein Urine Glucose (UA) Urine Ketones Urine Blood Urine Nitrate Urine Bilirubin Urine Urobilinogen Ur Leukocyte Esterase Urine RBC (Auto) Urine Microscopic WBC Ur Squamous Epith Cells Urine Bacteria Laboratory Results - last 72 hr 08/19/16 08/19/16 08/19/16 18:00 18:00 18:00 WBC 10.1 RBC 3.95 L Hgb 13.7 Hct 40.5 MCV 102.6 H D MCH 34.8 H MCHC 33.9 RDW 15.6 H Plt Count 95 L D MPV 10.0 Neut % (Auto) 85.3 H Lymph % (Auto) 6.8 L [place] % (Auto) 7.7 Eos % (Auto) 0.0 Baso % (Auto) 0.2 Neut # 8.7 H Lymph # 0.7 L [place] # 0.8 Eos # 0.0 Baso # 0.0 PT 10.8 INR 1.0 APTT 22.9 L pO2 VBG pH VBG pCO2 VBG HCO3 VBG Total CO2 VBG O2 Sat (Calc) VBG Base Excess VBG Potassium Glucose Lactate FiO2 Blood Gas Comments Crit Value Called To Crit Value Called By Crit Value Read Back Blood Gas Notified Time Sodium 142 Potassium 3.9 Chloride 101 Carbon Dioxide 26 Anion Gap 19 BUN 32 H Creatinine 1.9 H Est GFR ( Amer) 43 Est GFR (Non-Af Amer) 35 POC Glucose (mg/dL) Random Glucose 153 H Hemoglobin A1c Calcium 8.8 Magnesium 1.5 L Total Bilirubin 2.1 H Direct Bilirubin AST 59 D ALT 59 Alkaline Phosphatase 71 Ammonia Total Creatine Kinase 351 H Troponin I 0.7550 H* NT-Pro-B Natriuret Pep 26662 H Total Protein 7.6 Albumin 3.9 Globulin 3.8 Albumin/Globulin Ratio 1.0 Vitamin B12 Venous Blood Potassium Urine Color Urine Clarity Urine pH Ur Specific [place] Urine Protein Urine Glucose (UA) Urine Ketones Urine Blood Urine Nitrate Urine Bilirubin Urine Urobilinogen Ur Leukocyte Esterase Urine RBC (Auto) Urine Microscopic WBC Ur Squamous Epith Cells Urine Bacteria Alcohol, Quantitative < 10 08/19/16 08/19/16 08/19/16 18:25 19:57 19:57 WBC RBC Hgb Hct MCV MCH MCHC RDW Plt Count MPV Neut % (Auto) Lymph % (Auto) [place] % (Auto) Eos % (Auto) Baso % (Auto) Neut # Lymph # [place] # Eos # Baso # PT INR APTT pO2 20 L VBG pH 7.46 H VBG pCO2 39 L VBG HCO3 26.1 VBG Total CO2 28.9 H VBG O2 Sat (Calc) 37.1 L VBG Base Excess 3.7 H VBG Potassium 3.6 Glucose 154 H Lactate 5.3 H* FiO2 21.0 Blood Gas Comments Lactate 5.3 Crit Value Called To jayce Lopez Crit Value Called By 203 Crit Value Read Back N Blood Gas Notified Time 1831 Sodium 139.0 Potassium Chloride 101.0 Carbon Dioxide Anion Gap BUN Creatinine Est GFR ( Amer) Est GFR (Non-Af Amer) POC Glucose (mg/dL) Random Glucose Hemoglobin A1c 5.2 Calcium Magnesium Total Bilirubin 2.1 H Direct Bilirubin 0.5 H AST 58 ALT 54 Alkaline Phosphatase 68 Ammonia Total Creatine Kinase Troponin I NT-Pro-B Natriuret Pep Total Protein 7.6 Albumin 3.6 Globulin 3.9 Albumin/Globulin Ratio 0.9 L Vitamin B12 408 Venous Blood Potassium 3.6 Urine Color Urine Clarity Urine pH Ur Specific [place] Urine Protein Urine Glucose (UA) Urine Ketones Urine Blood Urine Nitrate Urine Bilirubin Urine Urobilinogen Ur Leukocyte Esterase Urine RBC (Auto) Urine Microscopic WBC Ur Squamous Epith Cells Urine Bacteria Alcohol, Quantitative 08/19/16 08/19/16 08/20/16 20:00 20:15 01:02 WBC RBC Hgb Hct MCV MCH MCHC RDW Plt Count MPV Neut % (Auto) Lymph % (Auto) [place] % (Auto) Eos % (Auto) Baso % (Auto) Neut # Lymph # [place] # Eos # Baso # PT INR APTT pO2 VBG pH VBG pCO2 VBG HCO3 VBG Total CO2 VBG O2 Sat (Calc) VBG Base Excess VBG Potassium Glucose Lactate FiO2 Blood Gas Comments Crit Value Called To Crit Value Called By Crit Value Read Back Blood Gas Notified Time Sodium Potassium Chloride Carbon Dioxide Anion Gap BUN Creatinine Est GFR ( Amer) Est GFR (Non-Af Amer) POC Glucose (mg/dL) 120 H Random Glucose Hemoglobin A1c Calcium Magnesium Total Bilirubin Direct Bilirubin AST ALT Alkaline Phosphatase Ammonia 11 L D Total Creatine Kinase Troponin I NT-Pro-B Natriuret Pep Total Protein Albumin Globulin Albumin/Globulin Ratio Vitamin B12 Venous Blood Potassium Urine Color [place] Urine Clarity Cloudy Urine pH 5.0 Ur Specific [place] 1.031 H Urine Protein >=500 Urine Glucose (UA) Neg Urine Ketones Trace Urine Blood Small Urine Nitrate Negative Urine Bilirubin Small Urine Urobilinogen 2.0 Ur Leukocyte Esterase Mod Urine RBC (Auto) 13 H Urine Microscopic WBC 14 H Ur Squamous Epith Cells < 1 Urine Bacteria Rare Alcohol, Quantitative 08/20/16 08/20/16 08/20/16 04:25 04:25 06:27 WBC 10.7 RBC 3.37 L Hgb 11.8 L Hct 34.8 L MCV 103.3 H MCH 35.1 H MCHC 34.0 RDW 15.6 H Plt Count 81 L MPV 10.4 Neut % (Auto) 77.0 H Lymph % (Auto) 12.5 L [place] % (Auto) 10.0 Eos % (Auto) 0.1 Baso % (Auto) 0.4 Neut # 8.3 H Lymph # 1.3 [place] # 1.1 H Eos # 0.0 Baso # 0.0 PT INR APTT pO2 VBG pH VBG pCO2 VBG HCO3 VBG Total CO2 VBG O2 Sat (Calc) VBG Base Excess VBG Potassium Glucose Lactate FiO2 Blood Gas Comments Crit Value Called To Crit Value Called By Crit Value Read Back Blood Gas Notified Time Sodium 140 Potassium 3.0 L Chloride 102 Carbon Dioxide 29 Anion Gap 12 BUN 30 H Creatinine 1.6 H Est GFR ( Amer) 52 Est GFR (Non-Af Amer) 43 POC Glucose (mg/dL) 108 Random Glucose 103 Hemoglobin A1c Calcium 8.0 L Magnesium 1.9 Total Bilirubin 2.0 H Direct Bilirubin AST 50 ALT 53 Alkaline Phosphatase 58 Ammonia Total Creatine Kinase Troponin I 0.5920 H* NT-Pro-B Natriuret Pep Total Protein 6.6 Albumin 3.2 L Globulin 3.4 Albumin/Globulin Ratio 0.9 L Vitamin B12 Venous Blood Potassium Urine Color Urine Clarity Urine pH Ur Specific [place] Urine Protein Urine Glucose (UA) Urine Ketones Urine Blood Urine Nitrate Urine Bilirubin Urine Urobilinogen Ur Leukocyte Esterase Urine RBC (Auto) Urine Microscopic WBC Ur Squamous Epith Cells Urine Bacteria Alcohol, Quantitative 08/20/16 11:13 WBC RBC Hgb Hct MCV MCH MCHC RDW Plt Count MPV Neut % (Auto) Lymph % (Auto) [place] % (Auto) Eos % (Auto) Baso % (Auto) Neut # Lymph # [place] # Eos # Baso # PT INR APTT pO2 VBG pH VBG pCO2 VBG HCO3 VBG Total CO2 VBG O2 Sat (Calc) VBG Base Excess VBG Potassium Glucose Lactate FiO2 Blood Gas Comments Crit Value Called To Crit Value Called By Crit Value Read Back Blood Gas Notified Time Sodium Potassium Chloride Carbon Dioxide Anion Gap BUN Creatinine Est GFR ( Amer) Est GFR (Non-Af Amer) POC Glucose (mg/dL) 153 H Random Glucose Hemoglobin A1c Calcium Magnesium Total Bilirubin Direct Bilirubin AST ALT Alkaline Phosphatase Ammonia Total Creatine Kinase Troponin I NT-Pro-B Natriuret Pep Total Protein Albumin Globulin Albumin/Globulin Ratio Vitamin B12 Venous Blood Potassium Urine Color Urine Clarity Urine pH Ur Specific [place] Urine Protein Urine Glucose (UA) Urine Ketones Urine Blood Urine Nitrate Urine Bilirubin Urine Urobilinogen Ur Leukocyte Esterase Urine RBC (Auto) Urine Microscopic WBC Ur Squamous Epith Cells Urine Bacteria Alcohol, Quantitative Accession No. 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 FINDINGS: LUNGS: Clear. PLEURA: No pneumothorax or pleural fluid seen. CARDIOVASCULAR: Cardiomegaly. No evidence of acute, significant cardiovascular disease. Incidental Finding(s): Postoperative changes related to sternotomy. OSSEOUS STRUCTURES: No significant abnormalities. VISUALIZED UPPER ABDOMEN: Normal. OTHER FINDINGS: None. IMPRESSION: No active disease. No acute/significant interval changes. Accession No. 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 no. Patient Name: RONALD CARDENAS Pt. Address: [address] [place] [address] Rec #: [id number] [place] [address]: Kevyn STOCK, Jayce Stevenson Pt HOME Order Location: [facility] : 1945 Male Age: 71 Order #: [id number] Reason for exam: seizure CT Scan HEAD W/O (CODE STROKE) Exam Date: 08/19/16 This imaging exam was performed at [facility] EXAM: CT Head Without Intravenous Contrast CLINICAL HISTORY: 71 years old, male; Signs and symptoms; Other: Seizure; Patient HX: HX of seizure TECHNIQUE: Axial computed tomography images of the head/brain without intravenous contrast. This CT exam was performed using one or more of the following dose reduction techniques: automated exposure control, adjustment of the mA and/or kV according to patient size, and/or use of iterative reconstruction technique. Coronal and sagittal reformatted images were created and reviewed. EXAM DATE/TIME: 08/19/2016 6:01 PM COMPARISON: CT - HEAD W/O CONTRAST 10/29/2015 9:17:38 PM FINDINGS: Brain: There is dilatation of sulci gyri and ventricles. There is no midline shift. There is decreased attenuation in periventricular white matter. There is an old left periventricular white matter infarct. There is an old right occipital infarct. There is less extensive left occipital encephalomalacia, unchanged. There is an old right cerebellar infarct. There are no focal masses. There are no focal hemorrhages. Carter-white differentiation is visualized. Ventricles: See above Bones/joints: Bones: Cranial vault is intact. Soft tissues: unremarkable Sinuses: There is no acute sinusitis. There is minimal mucoperiosteal thickening in the maxillary sinuses. Mastoid air cells: Ears and mastoids: Middle ears and mastoids are unremarkable. Orbits: Orbital contents are unremarkable. IMPRESSION: Atrophy and small vessel disease; old infarcts; no bleed; no acute intracranial abnormality Dictated By: Jim Dumas MD, MD Dictated Date/Time: 08/19/161824 Signed By: Jim Dumas MD Date Signed: 1824 Transcribed By: RUBIA Transcribe Date/Time : 08/19/161824 FRANCINE/MATT Assessment & Plan (1) Seizure disorder Status: Acute (2) CVA (cerebral vascular accident) Status: Acute (3) CHF (congestive heart failure) Status: Acute (4) Atrial fibrillation with RVR Status: Acute - Assessment and Plan (Free Text) Assessment: A/p 71 year old amle with multiple medical conditions including CVA, seizure disorder, CAD, CHF a.fib was admitted for seizures and found to have high lactate and onbe temp of 102 in ED. the source of the fever could be noninfectious most likely post Ictal fever specailly since there is no leukocytosis and negative admission CXR and no acute findings on brain CT as per radiologist's report. However he does have slightly cloudy UA with Mod Leuk esterase and hence advise to check urine cx and rule out UTI. In addition he could have possibly aspirated a bit post seizure and pneumonitis should be ruled out as well and hence advise repeat CXR. pt. also found to be in acute renal insufficiency could be secondary to dehydration vs possible rhabdo post ictal. 1. seizure 2. CVA 3.Acutre renal insufficiency 4. lactic acidosis 5.+ UA plan- check urine cx check blood cx x 2. check repeat CXR. No objection to continuing with the empiric zosyn that was already initiated by the primary team to cover for possible asp pneumonitis and UTI pending further results.( renal dose) seizure management as per neurologist. monitor temp and wbc. Monitor aspiration precautions. check procalcitonin level. Thank you for allowing me to take part in the care of this patient. ICU time 60 minutes.
[2016-08-20 12:35] LABS: PROLACTIN 34.6 ng/mL (3.7-17.9)
[2016-08-20] MEDS ORDERED: Sodium Chloride 0.9% 1,000 ML IV SCH (13:15)
--- NOTE | 2016-08-20 13:19 | CP.CCUPN ---
CCU Subjective - Physician Review Events Since Last Encounter (Free Text): 08/20/16 13:17 patient is alert and following commands, complains he cannot talk normally. CCU Objective - Vital Signs / Intake & Output Vital Signs (Last 4 hours): Vital Signs Temp Pulse Resp BP Pulse Ox 08/20/16 12:00 97.9 F 62 19 139/75 95 08/20/16 10:16 118 H 95 08/20/16 10:00 80 15 169/103 H 98 Intake and Output (Last 8hrs): Intake & Output 08/19/16 08/20/16 08/20/16 22:59 06:59 14:59 Intake Total 225 Balance 225 Intake: IV 125 Intake, Piggyback 100 - Physical Exam Head: Positive for: Atraumatic, Normocephalic Pupils: Positive for: PERRL Extroacular Muscles: Positive for: EOMI Mouth: Positive for: Moist Mucous Membranes Respiratory/Chest: Positive for: Clear to Auscultation, Good Air Exchange Cardiovascular: Positive for: Irregular Rhythm Abdomen: Positive for: Normal Bowel Sounds. Negative for: Tenderness, Distention Neurological: Positive for: GCS=15, Other (dysarthria, aphasia). Negative for: Speech Normal Psychiatric: Positive for: Alert, Oriented x 3 - Medications Active Medications: Active Medications Generic Name Dose Route Start Last Admin Trade Name Freq PRN Reason Stop Dose Admin Aspirin 300 mg 08/20/16 09:00 08/20/16 09:06 Aspirin Supp [place] 300 mg DAILY ROBERT Administration Diltiazem HCl 300 mg 08/20/16 15:00 Cardizem Cd PO DAILY ROBERT Enoxaparin Sodium 95 mg 08/19/16 21:00 08/20/16 08:52 Lovenox SC 95 mg Q12 ROBERT Administration Protocol Diltiazem HCl 125 mg/ Sodium 125 mls @ 5 mls/hr 08/19/16 18:06 08/20/16 03:01 Chloride IV 08/20/16 18:05 10 mg/hr .Q24H ONE 10 mls/hr Protocol Administration 5 MG/HR Piperacillin Sod/Tazobactam 100 mls @ 100 mls/hr 08/20/16 16:00 Sod 2.25 gm/ Sodium Chloride IVPB Q6 ROBERT Sodium Chloride 1,000 mls @ 60 mls/hr 08/20/16 13:15 Sodium Chloride 0.9% IV 08/21/16 13:12 .[id number] ROBERT Lorazepam 2 mg 08/19/16 20:29 Ativan IVP Q6 PRN Seizure activity Pantoprazole Sodium 40 mg 08/20/16 09:00 08/20/16 08:55 Protonix Inj IVP 40 mg DAILY ROBERT Administration - Patient Studies Lab Studies: Lab Studies 08/20/16 08/20/16 08/20/16 Range/Units 11:13 06:27 04:25 WBC (4.8-10.8) K/uL RBC (4.40-5.90) Mil/uL Hgb (12.0-18.0) g/dL Hct (35.0-51.0) % MCV (80.0-94.0) fl MCH (27.0-31.0) pg MCHC (33.0-37.0) g/dL RDW (11.5-14.5) % Plt Count (130-400) K/uL MPV (7.2-11.7) fl Neut % (Auto) (50.0-75.0) % Lymph % (Auto) (20.0-40.0) % [place] % (Auto) (0.0-10.0) % Eos % (Auto) (0.0-4.0) % Baso % (Auto) (0.0-2.0) % Neut # (1.8-7.0) K/uL Lymph # (1.0-4.3) K/uL [place] # (0.0-0.8) K/uL Eos # (0.0-0.7) K/uL Baso # (0.0-0.2) K/uL Sodium 140 (132-148) mmol/l Potassium 3.0 L (3.6-5.0) MMOL/L Chloride 102 (98-107) mmol/L Carbon Dioxide 29 (22-30) mmol/L Anion Gap 12 (10-20) BUN 30 H (9-20) mg/dl Creatinine 1.6 H (0.8-1.5) mg/dL Est GFR ( Amer) 52 Est GFR (Non-Af Amer) 43 POC Glucose (mg/dL) 153 H 108 (65-110) mg/dL Random Glucose 103 (75-110) mg/dL Hemoglobin A1c (4.2-6.5) % Calcium 8.0 L (8.4-10.2) mg/dL Magnesium 1.9 (1.6-2.3) MG/DL Total Bilirubin 2.0 H (0.2-1.3) mg/dl Direct Bilirubin (0.0-0.4) mg/ml AST 50 (17-59) U/L ALT 53 (21-72) U/L Alkaline Phosphatase 58 (38-126) U/L Ammonia (16-60) umo/L Troponin I 0.5920 H* (0.00-0.120) ng/mL Total Protein 6.6 (6.3-8.2) G/DL Albumin 3.2 L (3.5-5.0) g/dL Globulin 3.4 (2.2-3.9) gm/dL Albumin/Globulin Ratio 0.9 L (1.0-2.1) Vitamin B12 (239-931) pg/mL Prolactin (3.7-17.9) ng/mL Urine Color (YELLOW) Urine Clarity (Clear) Urine pH (5.0-8.0) Ur Specific [place] (1.003-1.030) Urine Protein (NEGATIVE) mg/dL Urine Glucose (UA) (Normal) mg/dL Urine Ketones (NEGATIVE) mg/dL Urine Blood (NEGATIVE) Urine Nitrate (NEGATIVE) Urine Bilirubin (NEGATIVE) Urine Urobilinogen (0.2-1.0) mg/dL Ur Leukocyte Esterase (Negative) Bar/uL Urine RBC (Auto) (0-3) /hpf Urine Microscopic WBC (0-5) /hpf Ur Squamous Epith Cells (0-5) /hpf Urine Bacteria (<OCC) 08/20/16 08/20/16 08/19/16 Range/Units 04:25 01:02 20:15 WBC 10.7 (4.8-10.8) K/uL RBC 3.37 L (4.40-5.90) Mil/uL Hgb 11.8 L (12.0-18.0) g/dL Hct 34.8 L (35.0-51.0) % MCV 103.3 H (80.0-94.0) fl MCH 35.1 H (27.0-31.0) pg MCHC 34.0 (33.0-37.0) g/dL RDW 15.6 H (11.5-14.5) % Plt Count 81 L (130-400) K/uL MPV 10.4 (7.2-11.7) fl Neut % (Auto) 77.0 H (50.0-75.0) % Lymph % (Auto) 12.5 L (20.0-40.0) % [place] % (Auto) 10.0 (0.0-10.0) % Eos % (Auto) 0.1 (0.0-4.0) % Baso % (Auto) 0.4 (0.0-2.0) % Neut # 8.3 H (1.8-7.0) K/uL Lymph # 1.3 (1.0-4.3) K/uL [place] # 1.1 H (0.0-0.8) K/uL Eos # 0.0 (0.0-0.7) K/uL Baso # 0.0 (0.0-0.2) K/uL Sodium (132-148) mmol/l Potassium (3.6-5.0) MMOL/L Chloride (98-107) mmol/L Carbon Dioxide (22-30) mmol/L Anion Gap (10-20) BUN (9-20) mg/dl Creatinine (0.8-1.5) mg/dL Est GFR ( Amer) Est GFR (Non-Af Amer) POC Glucose (mg/dL) 120 H (65-110) mg/dL Random Glucose (75-110) mg/dL Hemoglobin A1c (4.2-6.5) % Calcium (8.4-10.2) mg/dL Magnesium (1.6-2.3) MG/DL Total Bilirubin (0.2-1.3) mg/dl Direct Bilirubin (0.0-0.4) mg/ml AST (17-59) U/L ALT (21-72) U/L Alkaline Phosphatase (38-126) U/L Ammonia (16-60) umo/L Troponin I (0.00-0.120) ng/mL Total Protein (6.3-8.2) G/DL Albumin (3.5-5.0) g/dL Globulin (2.2-3.9) gm/dL Albumin/Globulin Ratio (1.0-2.1) Vitamin B12 (239-931) pg/mL Prolactin (3.7-17.9) ng/mL Urine Color [place] (YELLOW) Urine Clarity Cloudy (Clear) Urine pH 5.0 (5.0-8.0) Ur Specific [place] 1.031 H (1.003-1.030) Urine Protein >=500 (NEGATIVE) mg/dL Urine Glucose (UA) Neg (Normal) mg/dL Urine Ketones Trace (NEGATIVE) mg/dL Urine Blood Small (NEGATIVE) Urine Nitrate Negative (NEGATIVE) Urine Bilirubin Small (NEGATIVE) Urine Urobilinogen 2.0 (0.2-1.0) mg/dL Ur Leukocyte Esterase Mod (Negative) Bar/uL Urine RBC (Auto) 13 H (0-3) /hpf Urine Microscopic WBC 14 H (0-5) /hpf Ur Squamous Epith Cells < 1 (0-5) /hpf Urine Bacteria Rare (<OCC) 08/19/16 08/19/16 08/19/16 Range/Units 20:00 19:57 19:57 WBC (4.8-10.8) K/uL RBC (4.40-5.90) Mil/uL Hgb (12.0-18.0) g/dL Hct (35.0-51.0) % MCV (80.0-94.0) fl MCH (27.0-31.0) pg MCHC (33.0-37.0) g/dL RDW (11.5-14.5) % Plt Count (130-400) K/uL MPV (7.2-11.7) fl Neut % (Auto) (50.0-75.0) % Lymph % (Auto) (20.0-40.0) % [place] % (Auto) (0.0-10.0) % Eos % (Auto) (0.0-4.0) % Baso % (Auto) (0.0-2.0) % Neut # (1.8-7.0) K/uL Lymph # (1.0-4.3) K/uL [place] # (0.0-0.8) K/uL Eos # (0.0-0.7) K/uL Baso # (0.0-0.2) K/uL Sodium (132-148) mmol/l Potassium (3.6-5.0) MMOL/L Chloride (98-107) mmol/L Carbon Dioxide (22-30) mmol/L Anion Gap (10-20) BUN (9-20) mg/dl Creatinine (0.8-1.5) mg/dL Est GFR ( Amer) Est GFR (Non-Af Amer) POC Glucose (mg/dL) (65-110) mg/dL Random Glucose (75-110) mg/dL Hemoglobin A1c 5.2 (4.2-6.5) % Calcium (8.4-10.2) mg/dL Magnesium (1.6-2.3) MG/DL Total Bilirubin 2.1 H (0.2-1.3) mg/dl Direct Bilirubin 0.5 H (0.0-0.4) mg/ml AST 58 (17-59) U/L ALT 54 (21-72) U/L Alkaline Phosphatase 68 (38-126) U/L Ammonia 11 L D (16-60) umo/L Troponin I (0.00-0.120) ng/mL Total Protein 7.6 (6.3-8.2) G/DL Albumin 3.6 (3.5-5.0) g/dL Globulin 3.9 (2.2-3.9) gm/dL Albumin/Globulin Ratio 0.9 L (1.0-2.1) Vitamin B12 408 (239-931) pg/mL Prolactin 34.6 H (3.7-17.9) ng/mL Urine Color (YELLOW) Urine Clarity (Clear) Urine pH (5.0-8.0) Ur Specific [place] (1.003-1.030) Urine Protein (NEGATIVE) mg/dL Urine Glucose (UA) (Normal) mg/dL Urine Ketones (NEGATIVE) mg/dL Urine Blood (NEGATIVE) Urine Nitrate (NEGATIVE) Urine Bilirubin (NEGATIVE) Urine Urobilinogen (0.2-1.0) mg/dL Ur Leukocyte Esterase (Negative) Bar/uL Urine RBC (Auto) (0-3) /hpf Urine Microscopic WBC (0-5) /hpf Ur Squamous Epith Cells (0-5) /hpf Urine Bacteria (<OCC) Laboratory Results - last 24 hr 08/19/16 08/19/16 08/19/16 19:57 19:57 20:00 WBC RBC Hgb Hct MCV MCH MCHC RDW Plt Count MPV Neut % (Auto) Lymph % (Auto) [place] % (Auto) Eos % (Auto) Baso % (Auto) Neut # Lymph # [place] # Eos # Baso # Sodium Potassium Chloride Carbon Dioxide Anion Gap BUN Creatinine Est GFR ( Amer) Est GFR (Non-Af Amer) POC Glucose (mg/dL) Random Glucose Hemoglobin A1c 5.2 Calcium Magnesium Total Bilirubin 2.1 H Direct Bilirubin 0.5 H AST 58 ALT 54 Alkaline Phosphatase 68 Ammonia 11 L D Troponin I Total Protein 7.6 Albumin 3.6 Globulin 3.9 Albumin/Globulin Ratio 0.9 L Vitamin B12 408 Prolactin 34.6 H Urine Color Urine Clarity Urine pH Ur Specific [place] Urine Protein Urine Glucose (UA) Urine Ketones Urine Blood Urine Nitrate Urine Bilirubin Urine Urobilinogen Ur Leukocyte Esterase Urine RBC (Auto) Urine Microscopic WBC Ur Squamous Epith Cells Urine Bacteria 08/19/16 08/20/16 08/20/16 20:15 01:02 04:25 WBC 10.7 RBC 3.37 L Hgb 11.8 L Hct 34.8 L MCV 103.3 H MCH 35.1 H MCHC 34.0 RDW 15.6 H Plt Count 81 L MPV 10.4 Neut % (Auto) 77.0 H Lymph % (Auto) 12.5 L [place] % (Auto) 10.0 Eos % (Auto) 0.1 Baso % (Auto) 0.4 Neut # 8.3 H Lymph # 1.3 [place] # 1.1 H Eos # 0.0 Baso # 0.0 Sodium Potassium Chloride Carbon Dioxide Anion Gap BUN Creatinine Est GFR ( Amer) Est GFR (Non-Af Amer) POC Glucose (mg/dL) 120 H Random Glucose Hemoglobin A1c Calcium Magnesium Total Bilirubin Direct Bilirubin AST ALT Alkaline Phosphatase Ammonia Troponin I Total Protein Albumin Globulin Albumin/Globulin Ratio Vitamin B12 Prolactin Urine Color [place] Urine Clarity Cloudy Urine pH 5.0 Ur Specific [place] 1.031 H Urine Protein >=500 Urine Glucose (UA) Neg Urine Ketones Trace Urine Blood Small Urine Nitrate Negative Urine Bilirubin Small Urine Urobilinogen 2.0 Ur Leukocyte Esterase Mod Urine RBC (Auto) 13 H Urine Microscopic WBC 14 H Ur Squamous Epith Cells < 1 Urine Bacteria Rare 08/20/16 08/20/16 08/20/16 04:25 06:27 11:13 WBC RBC Hgb Hct MCV MCH MCHC RDW Plt Count MPV Neut % (Auto) Lymph % (Auto) [place] % (Auto) Eos % (Auto) Baso % (Auto) Neut # Lymph # [place] # Eos # Baso # Sodium 140 Potassium 3.0 L Chloride 102 Carbon Dioxide 29 Anion Gap 12 BUN 30 H Creatinine 1.6 H Est GFR ( Amer) 52 Est GFR (Non-Af Amer) 43 POC Glucose (mg/dL) 108 153 H Random Glucose 103 Hemoglobin A1c Calcium 8.0 L Magnesium 1.9 Total Bilirubin 2.0 H Direct Bilirubin AST 50 ALT 53 Alkaline Phosphatase 58 Ammonia Troponin I 0.5920 H* Total Protein 6.6 Albumin 3.2 L Globulin 3.4 Albumin/Globulin Ratio 0.9 L Vitamin B12 Prolactin Urine Color Urine Clarity Urine pH Ur Specific [place] Urine Protein Urine Glucose (UA) Urine Ketones Urine Blood Urine Nitrate Urine Bilirubin Urine Urobilinogen Ur Leukocyte Esterase Urine RBC (Auto) Urine Microscopic WBC Ur Squamous Epith Cells Urine Bacteria EKG/Cardiology Studies: Cardiology / EKG Studies 08/20/16 07:30 EKG [ELECTROCARDIOGRAM] Routine Comment: Mode Of Transportation: PORTABLE Reason For Exam: Elevated Troponin Fingerstick Blood Sugar Results: 203 Review of Systems - Review of Systems All systems: reviewed and no additional remarkable complaints except - Neurological Neurological: Abnormal Speech Critical Care Progress Note - Nutrition Nutrition: Nutrition Category Date Time Status Dysphagia/Modified Consistency Diet [DIET] Diets 08/20/16 Lunch Active Assessment/Plan (1) CVA (cerebral vascular accident) Assessment and plan: 71yo M. PMHx arthritis, iverticulosis, CVA, ETOH abuse, withdrawal seizures, CABG, CAD with stents, atrial fibrillation, HTN, dyslipidemia, PVD, CVA. p/w suspected withdrawal seizures, still drinking daily. Patient also has new stroke symptoms with dysarthria and LUE weakness. Neuro: alert and oriented, expressive aphasia with dysarthria secondary to recurrent stroke. MRI, EEG. Ativan prn for seizure activity. Pulm: no acute issues, breathing spontaneously on room air CV: atrial fibrillation on cardizem drip, will transition to po Hem: ASA for recurrent CVA. full dose lovenox for afib, will start pradaxa ( reversible anticoagulant). Patient will have compliance issues with alcoholism. Renal: acute kidney injury Endo: no acute issues GI: puree with nectar thick liquids. ID: empiric treatment with Zosyn, will stop if no further signs of sepsis. DVT proph - full dose lovenox GI proph - protonix IV Code status - full code Critical Care Time spent 35 minutes Multi-disciplinary rounds were performed with house staff, nursing, speech therapy, respiratory therapy, pharmacy and nutrition with integrated input from the primary team/attending and other consulting services. The documented time is cumulative and includes review of patient data/exams/labs/chart review and examination of the patient on rounds and throughout the day; time is exclusive of any procedures or teaching time. Current Visit: Yes Status: Acute
[2016-08-20 13:25] LABS: LYMPHOCYTE 9 % (20-50); MONOCYTE 6 % (0-10); NEUTROPHIL 81 % (42-75); REACTIVE LYMPHOCYTES 4 % (0-0); TOTAL CELLS COUNTED 100
[2016-08-20 13:27] LABS: ANISOCYTOSIS SLIGHT; GIANT PLATELETS PRESENT; HYPOCHROMIC SLIGHT; LARGE PLATELETS PRESENT; PLATELET CLUMPS PRESENT; PLATELET ESTIMATE DECREASED (NORMAL); TEARDROP CELLS SLIGHT
--- NOTE | 2016-08-20 14:43 | CP.PCM.CON ---
History of Present Illness - History of Present Illness History of Present Illness: 71 y/o male h/o CABG, ETOH, Seizure disorder presented after seizure activity , found in rapid A fib, placed on IV Cardizem, SQ therapeutic lovenox after a negative head CT scan and was admitted to ICU No chest pain at this time or recurrence of seizures Review of Systems - Review of Systems Systems not reviewed;Unavailable: Altered Mental Status - Constitutional Constitutional: Daytime Sleepiness Past Patient History - Tetanus Immunizations Tetanus Immunization: >10 years Ago - Past Medical History & Family History Past Medical History?: Yes - Past Social History Smoking Status: Light Smoker < 10 Cigarettes Daily Chewing Tobacco Use: No Cigar Use: No Alcohol: Other (ETOH ABUSE) Home Situation {Lives}: With Family - CARDIAC Hx Atrial Fibrillation: Yes Hx Cardia Arrhythmia: Yes Hx Congestive Heart Failure: Yes Hx Hypercholesterolemia: Yes Hx Hypertension: Yes - PULMONARY Hx Respiratory Disorders: No - NEUROLOGICAL Hx 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) Hx Seizures: Yes - HEENT Hx HEENT Problems: No - RENAL Hx Chronic Kidney Disease: No Hx Kidney Stones: No - ENDOCRINE/METABOLIC Hx Diabetes Mellitus Type 2: Yes - HEMATOLOGICAL/ONCOLOGICAL Hx Blood Disorders: No - INTEGUMENTARY Hx Dermatological Problems: No - MUSCULOSKELETAL/RHEUMATOLOGICAL Hx Arthritis: Yes - GASTROINTESTINAL Hx Constipation: Yes - GENITOURINARY/GYNECOLOGICAL Hx Genitourinary Disorders: No - PSYCHIATRIC Hx Psychophysiologic Disorder: Yes Hx Substance Use: No - SURGICAL HISTORY Hx Coronary Artery Bypass Graft: Yes Hx Coronary Stent: Yes - ANESTHESIA Hx Anesthesia: Yes Hx Anesthesia Reactions: No Meds Allergies/Adverse Reactions: Allergies Allergy/AdvReac Type Severity Reaction Status Date / Time No Known Allergies Allergy Verified 09/15/15 10:46 - Medications Medications: Current Medications Aspirin (Aspirin Supp) 300 mg SC DAILY [facility] Last Admin: 08/20/16 09:06 Dose: 300 mg Diltiazem HCl (Cardizem Cd) 300 mg PO DAILY ROBERT Enoxaparin Sodium (Lovenox) 95 mg SC Q12 ROBERT PRN Reason: Protocol Last Admin: 08/20/16 08:52 Dose: 95 mg Diltiazem HCl 125 mg/ Sodium (Chloride) 125 mls @ 5 mls/hr IV .Q24H ONE; 5 MG/ HR PRN Reason: Protocol Stop: 08/20/16 18:05 Last Admin: 08/20/16 03:01 Dose: 10 mg/hr, 10 mls/hr Piperacillin Sod/Tazobactam (Sod 2.25 gm/ Sodium Chloride) 100 mls @ 100 mls/ hr IVPB Q6 [facility] Sodium Chloride (Sodium Chloride 0.9%) 1,000 mls @ 60 mls/hr IV .[id number] ROBERT Stop: 08/21/16 13:12 Lorazepam (Ativan) 2 mg IVP Q6 PRN PRN Reason: Seizure activity Pantoprazole Sodium (Protonix Inj) 40 mg IVP DAILY [facility] Last Admin: 08/20/16 08:55 Dose: 40 mg Physical Exam - Constitutional Appears: Unkempt - Head Exam Head Exam: NORMAL INSPECTION - Eye Exam Eye Exam: Normal appearance - Neck Exam Neck exam: Positive for: Normal Inspection - Respiratory Exam Respiratory Exam: Rhonchi - Cardiovascular Exam Cardiovascular Exam: Irregular Rhythm - Extremities Exam Extremities exam: Positive for: normal inspection Results - Vital Signs Recent Vital Signs: Last Vital Signs Temp 97.9 F 08/20/16 12:00 Pulse 62 08/20/16 12:00 Resp 19 08/20/16 12:00 BP 139/75 08/20/16 12:00 Pulse Ox 95 08/20/16 12:00 - Labs Result Diagrams: 08/20/16 04:25 08/20/16 04:25 Labs: Laboratory Results - last 24 hr 08/19/16 08/19/16 08/19/16 19:57 19:57 20:00 WBC RBC Hgb Hct MCV MCH MCHC RDW Plt Count MPV Neut % (Auto) Lymph % (Auto) [place] % (Auto) Eos % (Auto) Baso % (Auto) Neut # Lymph # [place] # Eos # Baso # Sodium Potassium Chloride Carbon Dioxide Anion Gap BUN Creatinine Est GFR ( Amer) Est GFR (Non-Af Amer) POC Glucose (mg/dL) Random Glucose Hemoglobin A1c 5.2 Calcium Magnesium Total Bilirubin 2.1 H Direct Bilirubin 0.5 H AST 58 ALT 54 Alkaline Phosphatase 68 Ammonia 11 L D Troponin I Total Protein 7.6 Albumin 3.6 Globulin 3.9 Albumin/Globulin Ratio 0.9 L Vitamin B12 408 Prolactin 34.6 H Urine Color Urine Clarity Urine pH Ur Specific [place] Urine Protein Urine Glucose (UA) Urine Ketones Urine Blood Urine Nitrate Urine Bilirubin Urine Urobilinogen Ur Leukocyte Esterase Urine RBC (Auto) Urine Microscopic WBC Ur Squamous Epith Cells Urine Bacteria 08/19/16 08/20/16 08/20/16 20:15 01:02 04:25 WBC 10.7 RBC 3.37 L Hgb 11.8 L Hct 34.8 L MCV 103.3 H MCH 35.1 H MCHC 34.0 RDW 15.6 H Plt Count 81 L MPV 10.4 Neut % (Auto) 77.0 H Lymph % (Auto) 12.5 L [place] % (Auto) 10.0 Eos % (Auto) 0.1 Baso % (Auto) 0.4 Neut # 8.3 H Lymph # 1.3 [place] # 1.1 H Eos # 0.0 Baso # 0.0 Sodium Potassium Chloride Carbon Dioxide Anion Gap BUN Creatinine Est GFR ( Amer) Est GFR (Non-Af Amer) POC Glucose (mg/dL) 120 H Random Glucose Hemoglobin A1c Calcium Magnesium Total Bilirubin Direct Bilirubin AST ALT Alkaline Phosphatase Ammonia Troponin I Total Protein Albumin Globulin Albumin/Globulin Ratio Vitamin B12 Prolactin Urine Color [place] Urine Clarity Cloudy Urine pH 5.0 Ur Specific [place] 1.031 H Urine Protein >=500 Urine Glucose (UA) Neg Urine Ketones Trace Urine Blood Small Urine Nitrate Negative Urine Bilirubin Small Urine Urobilinogen 2.0 Ur Leukocyte Esterase Mod Urine RBC (Auto) 13 H Urine Microscopic WBC 14 H Ur Squamous Epith Cells < 1 Urine Bacteria Rare 08/20/16 08/20/16 08/20/16 04:25 06:27 11:13 WBC RBC Hgb Hct MCV MCH MCHC RDW Plt Count MPV Neut % (Auto) Lymph % (Auto) [place] % (Auto) Eos % (Auto) Baso % (Auto) Neut # Lymph # [place] # Eos # Baso # Sodium 140 Potassium 3.0 L Chloride 102 Carbon Dioxide 29 Anion Gap 12 BUN 30 H Creatinine 1.6 H Est GFR ( Amer) 52 Est GFR (Non-Af Amer) 43 POC Glucose (mg/dL) 108 153 H Random Glucose 103 Hemoglobin A1c Calcium 8.0 L Magnesium 1.9 Total Bilirubin 2.0 H Direct Bilirubin AST 50 ALT 53 Alkaline Phosphatase 58 Ammonia Troponin I 0.5920 H* Total Protein 6.6 Albumin 3.2 L Globulin 3.4 Albumin/Globulin Ratio 0.9 L Vitamin B12 Prolactin Urine Color Urine Clarity Urine pH Ur Specific [place] Urine Protein Urine Glucose (UA) Urine Ketones Urine Blood Urine Nitrate Urine Bilirubin Urine Urobilinogen Ur Leukocyte Esterase Urine RBC (Auto) Urine Microscopic WBC Ur Squamous Epith Cells Urine Bacteria - EKG Data EKG comments: Rapid A Fib, Anterolateral ischemia Assessment & Plan - Assessment and Plan (Free Text) Assessment: Rapid A Fib ? NSTEMI CKD CAD s/p CABG HYpokalemia Seizure disorder Plan: Cont. Aspirin (Aspirin Supp) 300 mg SC DAILY [facility] Last Admin: 08/20/16 09:06 Dose: 300 mg Diltiazem HCl (Cardizem Cd) 300 mg PO DAILY [facility] Enoxaparin Sodium (Lovenox) 95 mg SC Q12 ROBERT PRN Reason: Protocol Last Admin: 08/20/16 08:52 Dose: 95 mg Diltiazem HCl 125 mg/ Sodium (Chloride) 125 mls @ 5 mls/hr IV .Q24H ONE; 5 MG/ HR PRN Reason: Protocol Stop: 08/20/16 18:05 Last Admin: 08/20/16 03:01 Dose: 10 mg/hr, 10 mls/hr Piperacillin Sod/Tazobactam (Sod 2.25 gm/ Sodium Chloride) 100 mls @ 100 mls/ hr IVPB Q6 ROBERT Sodium Chloride (Sodium Chloride 0.9%) 1,000 mls @ 60 mls/hr IV .[id number] [facility] Stop: 08/21/16 13:12 Lorazepam (Ativan) 2 mg IVP Q6 PRN PRN Reason: Seizure activity Pantoprazole Sodium (Protonix Inj) 40 mg IVP DAILY [facility] Last Admin: 08/20/16 08:55 Dose: 40 mg Seizure precautions I will review Echo KCL replacement Start lopressor and lipitor Consider repeat head CT scan
[2016-08-20] MEDS ORDERED: diltiaZEM 300 mg/24 Hours CD Cap PO SCH (15:00)
[2016-08-20] MEDS ORDERED: Desmopressin 4 mcg/ml Inj (10 ml) IM STA (17:34)
--- NOTE | 2016-08-20 17:36 | MRI ---
PROCEDURE: MRI BRAIN WITHOUT CONTRAST HISTORY: STROKE COMPARISON: None. TECHNIQUE: Multiplanar, multisequence MR images of the brain were obtained without intravenous contrast enhancement. FINDINGS: HEMORRHAGE: The current study reveals a large acute hemorrhage within the right parietal operculum measures approximately 5.8 cm cc x 5.4 ap cm x 4.5 t cm . The hemorrhage is surrounded by a rim of prolonged T2 signal - restricted diffusion which could represent likely edema however early ischemia and/or necrotic brain tissue not completely excluded. The hemorrhage and its attendant surrounding edema exert mass effect with overlying sulcal effacement and compression of the right lateral ventricle. There is minimal shift of the septum pellucidum from right to left. Moderate to significant chronic white matter ischemic changes are again seen extending peripherally into the deep and subcortical white matter both cerebral hemispheres. In addition, there are scattered more discrete lacunar-type infarcts scattered about the deep and subcortical white matter as well as both basal nuclei and brainstem. Chronic left cerebellar infarct also noted DWI: As above BRAIN PARENCHYMA: Significant diffuse/confluent chronic white matter ischemic changes are again seen extending peripherally into the deep and subcortical white matter both cerebral hemispheres. In addition, there are scattered more discrete lacunar-type infarcts scattered about the deep and subcortical white matter as well as both basal nuclei and brainstem. Chronic left cerebellar infarct also noted. Moderate to fairly significant generalized Generalized volume loss VENTRICLES: No obstructive hydrocephalus CRANIUM: Unremarkable. ORBITS: The changes of bilateral cataract surgery. PARANASAL SINUSES/MASTOIDS: Clear VASCULAR SYSTEM: Visualized major vascular flow voids at skull base appear patent. OTHER FINDINGS: None. IMPRESSION: Large right parietal operculum hemorrhage surrounded by a rim of edema or possibly ischemia. Clinical correlation recommended. Extensive significant chronic white matter ischemic changes with multiple chronic lacunar-type infarcts scattered about the deep and subcortical white matter, both basal nuclei, brainstem and left cerebellum. Findings discussed with ICU Nurse Gomez at approximately 5:28 p.m. with written down and read back verification.
[2016-08-20] MEDS ORDERED: Phytonadione 10 mg/ml Inj (Adult) IV STA (17:53)
[2016-08-20] MEDS ORDERED: Mannitol 12.5 gm/50 ml Inj IV ONE (19:08)
--- NOTE | 2016-08-20 19:11 | CP.PCM.PN ---
Subjective - Date & Time of Evaluation Date of Evaluation: 08/20/16 Time of Evaluation: 16:00 - Subjective Subjective: HE REMAINS ALERT BUT LETHARGIC LEFT DENSE HEMIPLEGIC WORK UP MRI BRAIN - RIGHT MCA HEMORRHAGIC STROKE PROBABLE DUE TO CARDIOEMBOLIC SOURCE D/W RN D/C JONATHAN NON NEUROSURGICAL CANDIDATE EMPIRICAL PROPHYLACTIC AED (KEPPRA SUGGESTED) VITK NOT A CANDIDATE FOR ANTI PLATELETS, OR ANTI COAGULATION FOR NEXT 4 WEEKS ETOH ABSTINENCE SEQUENTIAL PORFIRIO HERNANDEZ C[facility]IOLOG[facility] ON BOARD Objective - Vital Signs/Intake and Output Vital Signs (last 24 hours): Temp Pulse Resp BP Pulse Ox 99.8 F H 78 15 135/83 99 08/20/16 16:00 08/20/16 18:00 08/20/16 18:00 08/20/16 18:00 08/20/16 18:00 - Medications Medications: Current Medications Atorvastatin Calcium (Lipitor) 40 mg PO DAILY REPLACED BY [facility] Folic Acid (Folic Acid) 1 mg PO DAILY REPLACED BY [facility] Guaifenesin (Mucinex La) 600 mg PO Q12 REPLACED BY [facility] Piperacillin Sod/Tazobactam (Sod 2.25 gm/ Sodium Chloride) 100 mls @ 100 mls/ hr IVPB Q6 REPLACED BY [facility] Last Admin: 08/20/16 16:30 Dose: 100 mls/hr Sodium Chloride (Sodium Chloride 0.9%) 1,000 mls @ 60 mls/hr IV .[id number] REPLACED BY [facility] Stop: 08/21/16 13:12 Last Admin: 08/20/16 14:00 Dose: 60 mls/hr Lorazepam (Ativan) 2 mg IVP Q6 PRN PRN Reason: Seizure activity Metoprolol Tartrate (Lopressor) 5 mg IVP Q6 REPLACED BY [facility] Pantoprazole Sodium (Protonix Inj) 40 mg IVP DAILY REPLACED BY [facility] Last Admin: 08/20/16 08:55 Dose: 40 mg Thiamine HCl (Vitamin B1 Tab) 100 mg PO DAILY REPLACED BY [facility] - Labs Labs: 08/20/16 04:25 08/20/16 04:25 PT 10.8 Seconds (9.8-13.1) 08/19/16 18:00 INR 1.0 (0.9-1.2) 08/19/16 18:00 APTT 22.9 Seconds (25.6-37.1) L 08/19/16 18:00 Assessment and Plan (1) Alcohol abuse with alcohol-induced disorder Status: Acute
[2016-08-20] MEDS: levETIRAcetam 500 MG in Sodium Chloride 0.9% 100 ML IVPB SCH (21:33)
[2016-08-20] MEDS: Metoprolol 1 mg/ml Inj IVP SCH (21:41)
[2016-08-20] MEDS: guaiFENesin 600 mg ER Tab PO SCH (22:00)
[2016-08-21] MEDS: Metoprolol 1 mg/ml Inj IVP SCH ×4 (05:00→22:00)
[2016-08-21 05:28] LABS: BASO % 0.3 % (0.0-2.0); LYMPH # 0.9 K/uL (1.0-4.3); LYMPH % 10.1 % (20.0-40.0); MEAN CELL VOLUME 103.7 fl (80.0-94.0); MEAN CORPUSCULAR HEMOGLOBIN 34.9 pg (27.0-31.0); MEAN CORPUSCULAR HGB CONC 33.6 g/dL (33.0-37.0); MEAN PLATELET VOLUME 10.8 fl (7.2-11.7); MONO # 1.4 K/uL (0.0-0.8); MONO % 15.2 % (0.0-10.0); NEUT % 74.4 % (50.0-75.0); NRBC % 0.1 % (0.0-0.0); RBC 3.16 Mil/uL (4.40-5.90); RED CELL DISTRIBUTION WIDTH 15.6 % (11.5-14.5); WHITE BLOOD COUNT 9.4 K/uL (4.8-10.8)
[2016-08-21 05:30] LABS: ALB/GLOB RATIO 0.9 (1.0-2.1); ALBUMIN 3.2 g/dL (3.5-5.0); ALT/SGPT 48 U/L (21-72); AST/SGOT 46 U/L (17-59); BLOOD UREA NITROGEN 24 mg/dl (9-20); CALCIUM 7.8 mg/dL (8.4-10.2); GFR AFRICAN-AMERICAN > 60; GFR NON-AFRICAN AMERICAN 55
--- NOTE | 2016-08-21 07:13 | CP.PCM.PN ---
Subjective - Date & Time of Evaluation Date of Evaluation: 08/21/16 Time of Evaluation: 08:00 - Subjective Subjective: Patient seen and evaluated bedside. Very lethargic this AM , not following any commands , keeping his eyes closed.With fine tremors to RUE. Dense hemiparesis to left side BP 126/60 HR 55 saturating 98 % on 2 L O2 via NC Tmax 99.8 last 12 hours WBC 9.4 Hgb 11n Plt 83 MRI head showed large right parietal area hemorrhage Objective - Vital Signs/Intake and Output Vital Signs (last 24 hours): Temp Pulse Resp BP Pulse Ox 98.2 F 55 L 22 126/60 98 08/21/16 04:00 08/21/16 06:00 08/21/16 06:00 08/21/16 06:00 08/21/16 06:00 Intake and Output: 08/21/16 08/21/16 06:59 18:59 Intake Total 1400 Output Total 500 Balance 900 - Medications Medications: Current Medications Atorvastatin Calcium (Lipitor) 40 mg PO DAILY [facility] Folic Acid (Folic Acid) 1 mg PO DAILY [facility] Guaifenesin (Mucinex La) 600 mg PO Q12 [facility] Piperacillin Sod/Tazobactam (Sod 2.25 gm/ Sodium Chloride) 100 mls @ 100 mls/ hr IVPB Q6 [facility] Last Admin: 08/21/16 04:00 Dose: 100 mls/hr Sodium Chloride (Sodium Chloride 0.9%) 1,000 mls @ 60 mls/hr IV .[id number] [facility] Stop: 08/21/16 13:12 Last Admin: 08/20/16 14:00 Dose: 60 mls/hr Levetiracetam 500 mg/ Sodium (Chloride) 105 mls @ 210 mls/hr IVPB Q12 [facility] Last Admin: 08/20/16 21:33 Dose: 210 mls/hr Lorazepam (Ativan) 2 mg IVP Q6 PRN PRN Reason: Seizure activity Metoprolol Tartrate (Lopressor) 5 mg IVP Q6 [facility] Last Admin: 08/21/16 05:00 Dose: 5 mg Pantoprazole Sodium (Protonix Inj) 40 mg IVP DAILY [facility] Last Admin: 08/20/16 08:55 Dose: 40 mg Thiamine HCl (Vitamin B1 Tab) 100 mg PO DAILY [facility] - Labs Labs: 08/21/16 04:20 08/21/16 04:20 PT 10.8 Seconds (9.8-13.1) 08/19/16 18:00 INR 1.0 (0.9-1.2) 08/19/16 18:00 APTT 22.9 Seconds (25.6-37.1) L 08/19/16 18:00 - Constitutional Appears: Other (lethargic, not following any commands at present ) - Head Exam Head Exam: ATRAUMATIC, NORMOCEPHALIC - Eye Exam Eye Exam: PERRL - ENT Exam ENT Exam: Mucous Membranes Dry - Neck Exam Neck Exam: Full ROM, Normal Inspection - Respiratory Exam Respiratory Exam: Decreased Breath Sounds (bibasilar ), Clear to Ausculation Bilateral, NORMAL BREATHING PATTERN. absent: Rhonchi, Wheezes - Cardiovascular Exam Cardiovascular Exam: Irregular Rhythm. absent: JVD - GI/Abdominal Exam GI & Abdominal Exam: Soft, Normal Bowel Sounds. absent: Distended, Guarding, Tenderness, Rebound - Rectal Exam Rectal Exam: Deferred - Extremities Exam Extremities Exam: Normal Capillary Refill, Normal Inspection. absent: Pedal Edema - Neurological Exam Additional comments: lethargic , not following any commands Keeping eyes closed fine tremors to RUE - Skin Skin Exam: Pallor, Warm Assessment and Plan - Assessment and Plan (Free Text) Assessment: 71 years old male with hx of non compliance with medication, CVA, CAD s/p CABG, CHF, Alcohol abuse with intoxication, A Fib, and Seizure was brought from home to the ED because of 3 episodes of witnessed seizures. In the ED patient was found to be in A Fib with rapid response, have a Temperature of 102F, Dysarthric, with left side weakness and a NIHSS of 13. CT head in ER showed old CVA and no acute infarct or bleed. Neurology was consulted and patient started on ASA, Lovenox therapeutic , lipitor and cardizem drip for rate control.MRI of the brain performed 12 hours from presentation showed large right parietal area bleed. ASa, lovenox were held and Vitamin K and platelet ordered to reverse their effect. Neureology and neurosurgery informed. He wsa given 1 dose DDAVP , started on Manitol drip and Keppra for seizure prophylaxis. At present very lethargic not following any commands, off manitol and cardizem drip. 1. Intracranial bleed very lethargic , not following any commands today initial CT head showed old CVA , no bleed no acute stroke MRI head showed :Large right parietal operculum hemorrhage surrounded by a rim of edema or possibly ischemia. Extensive significant chronic white matter ischemic changes with multiple chronic lacunar-type infarcts scattered about the deep and subcortical white matter, both basal nuclei, brainstem and left cerebellum. Neurology and neurosurgery on consult Patient is not a surgical candidate ASA and lovenox held Vitamin K , Platelet transfusion given DDAVP 1 dose was given as well as Manitol to decrease the intracerebral edema Continue neurochecks NPO for now due to lethargy Keep HOB elevated Started Keppra for seizure prophylaxis 2. Seizure episodes most likely due to new CVA no more seizure episodes since admission CT head showed old CVA MRI with large right parietal bleed Neurology consulted . Dr. Celestin started on Keppra for seizure prophylaxis ativan PRN Thiamine, folic acid , MVI 3. Suspected Aspiration Pneumonia Tmax 102 on admission with coughing spells that has been going on for months as per patient Consult Dr Rodriguez Load Dropper ID consult appreciated Follow up repeat CXR Continue Zosyn empirically f/u blood and sputum cx O2 via NC Started Mucinex 4. Suspected Sepsis-- less likely procalcitonin - normal follow up blood , urine and sputum cx Follow up repeat CXR Continue Zosyn lactic acid elevation most likelty secondary to tissue hypoperfusion and seizure episodes consult with Dr Tello ID appreciated 5. A Fib with RVR rate controlled Cardizem drip discontinued on Cardizem Po and Metoprolol no anticoagulation due to intracranial bleed cardiology consult with Dr James appreciated follow up Echo 6. Elevated Troponin probably related to Afib with RVR less likely NSTEMI cardiology consulted follow up Echo Continue statin, lopressor d/c ASA due to intracranial bleed 7. Chronic CHF ( unclear type) Cardiology consulted Follow up ECHO for EF 8. JONELLE Most likely prerenal check CPK Continue IVF and repeat BMP 9. DM ruled out HbA1c 5.4 10. Chronic Thrombocytopenia plt 81 k Most likely related to ETOH abuse 11. Stress ulcer prophylaxis pantoprazole 12. DVT Prophylaxis SCD d/c lovenox 13. Hypokalemia replace with KCl 14. History of ETOH dependence / alcoholism ETOH levels < 10 started thiamine, Folic acid Ativan PRN for seizure
--- NOTE | 2016-08-21 07:52 | CP.PCM.PN ---
<Rachael Fernandez - Last Filed: 08/21/16 12:15> Subjective - Date & Time of Evaluation Date of Evaluation: 08/21/16 Time of Evaluation: 07:44 - Subjective Subjective: - 71 YO M who had hemorrhagic conversion was seen and evaluated at bedside. He is following commands and able to move his right arm and right leg with a resting tremor. But is unable to move his left extremities. He is unable to vocalize currently and appears very lethargic. Vitals: BP: 126/60, HR:55, O2 sat on 2L via NC, - TMAX of 99.8 in the past 12 hours. Objective - Vital Signs/Intake and Output Vital Signs (last 24 hours): Temp Pulse Resp BP Pulse Ox 98.2 F 55 L 22 126/60 98 08/21/16 04:00 08/21/16 06:00 08/21/16 06:00 08/21/16 06:00 08/21/16 06:00 Intake and Output: 08/21/16 08/21/16 06:59 18:59 Intake Total 1400 Output Total 500 Balance 900 - Medications Medications: Current Medications Atorvastatin Calcium (Lipitor) 40 mg PO DAILY [facility] Folic Acid (Folic Acid) 1 mg PO DAILY [facility] Guaifenesin (Mucinex La) 600 mg PO Q12 [facility] Piperacillin Sod/Tazobactam (Sod 2.25 gm/ Sodium Chloride) 100 mls @ 100 mls/ hr IVPB Q6 [facility] Last Admin: 08/21/16 04:00 Dose: 100 mls/hr Sodium Chloride (Sodium Chloride 0.9%) 1,000 mls @ 60 mls/hr IV .[id number] [facility] Stop: 08/21/16 13:12 Last Admin: 08/20/16 14:00 Dose: 60 mls/hr Levetiracetam 500 mg/ Sodium (Chloride) 105 mls @ 210 mls/hr IVPB Q12 [facility] Last Admin: 08/20/16 21:33 Dose: 210 mls/hr Lorazepam (Ativan) 2 mg IVP Q6 PRN PRN Reason: Seizure activity Metoprolol Tartrate (Lopressor) 5 mg IVP Q6 [facility] Last Admin: 08/21/16 05:00 Dose: 5 mg Pantoprazole Sodium (Protonix Inj) 40 mg IVP DAILY [facility] Last Admin: 08/20/16 08:55 Dose: 40 mg Thiamine HCl (Vitamin B1 Tab) 100 mg PO DAILY [facility] - Labs Labs: 08/21/16 04:20 08/21/16 04:20 PT 10.8 Seconds (9.8-13.1) 08/19/16 18:00 INR 1.0 (0.9-1.2) 08/19/16 18:00 APTT 22.9 Seconds (25.6-37.1) L 08/19/16 18:00 - Constitutional Appears: Other (Lethargic , follows comands and moves right extremities) - Head Exam Head Exam: ATRAUMATIC, NORMOCEPHALIC - Eye Exam Eye Exam: PERRL - ENT Exam ENT Exam: Mucous Membranes Dry - Neck Exam Neck Exam: Full ROM, Normal Inspection - Respiratory Exam Respiratory Exam: Decreased Breath Sounds, Clear to Ausculation Bilateral Additional comments: B/L in basilar area - Cardiovascular Exam Cardiovascular Exam: REGULAR RHYTHM, +S1 - GI/Abdominal Exam GI & Abdominal Exam: Soft. absent: Tenderness - Neurological Exam Additional comments: Lethargic. Follows comands, with moving right extremities. - Has fine resting tremors of upper and lower extremity Assessment and Plan - Assessment and Plan (Free Text) Assessment: 71yo M. PMHx arthritis, iverticulosis, CVA, ETOH abuse, withdrawal seizures, CABG, CAD with stents, atrial fibrillation, HTN, dyslipidemia, PVD, CVA. p/w suspected withdrawal seizures, still drinking daily. Patient also has new stroke symptoms with dysarthria and LUE weakness. 1) CVA w/ hemorrhagic conversion - Initial CT of head showed old CVA. MRI done yesterday showed large right parietal operculum hemorrhage by a rim of edema or possible ischemia. - Left sided hemiparesis. - Pt poor surgical canidate as per neurosurg - HOLD ALL ANTIOCOAGULANTS - Mannitol x1 given - Neuro team has been consulted. - Neursurgery consult appreciated. - Do to the hemorrhagic conversion have stopped all anticoagulation. DDAVP and platelets being given for ASA reversal. - CT will be repeated today today to see progression of the bleed. - NG tube will be placed today: Jevidy will be started for artificial nutrition. [place] - 2) Status epilepticus due to Alcohol withdrawl - Neurology on consult - Adivan PRN - Keppra for seizure prophylaxis. 3) Atrial Fibrilation w/ RVR ( Currently controlled) - On Metoprolol - Hold cardizem - F/U Echo - Continue monitoring heart rate 4) JONELLE - Most likely prerenal - Continue IV fluids 5) Suspected aspiration pneumonia Tmax of 102 on admission w/ coughing spells ( Curently afebrile). Currently patient has not been noted to be coughing. Dr. Rodriguez on board ID consult appreciated Continue Zosyn empirically Blood culture showed no growth X ray on 08/19 shows no active lesion Mucinex for symptomatic relief 6) Hypokalemia - improving w/ KCL replacement have improved from 3.0 to 2.5 7) DVT prophlaxis - Hold lovenox currently on SCD - Protonix IV Full Code Patient was seen and discussed with ICU attending Dr. Roy. <Emmett Roy - Last Filed: 08/21/16 14:29> Objective - Vital Signs/Intake and Output Vital Signs (last 24 hours): Temp Pulse Resp BP Pulse Ox 100.6 F H 87 17 150/89 100 08/21/16 12:15 08/21/16 13:05 08/21/16 12:15 08/21/16 13:05 08/21/16 12:15 Intake and Output: 08/21/16 08/21/16 06:59 18:59 Intake Total 1400 Output Total 500 Balance 900 - Medications Medications: Current Medications Atorvastatin Calcium (Lipitor) 40 mg PO DAILY [facility] Last Admin: 08/21/16 09:05 Dose: 40 mg Folic Acid (Folic Acid) 1 mg PO DAILY [facility] Last Admin: 08/21/16 09:05 Dose: 1 mg Guaifenesin (Mucinex La) 600 mg PO Q12 [facility] Last Admin: 08/21/16 09:05 Dose: 600 mg Piperacillin Sod/Tazobactam (Sod 2.25 gm/ Sodium Chloride) 100 mls @ 100 mls/ hr IVPB Q6 [facility] Last Admin: 08/21/16 09:08 Dose: 100 mls/hr Levetiracetam 500 mg/ Sodium (Chloride) 105 mls @ 210 mls/hr IVPB Q12 [facility] Last Admin: 08/21/16 11:39 Dose: 210 mls/hr Nicardipine HCl (Cardene Iv Premix) 20 mg in 200 mls @ 50 mls/hr IV .Q4H ONE; 5 MG/HR PRN Reason: Protocol Stop: 08/21/16 18:10 Lorazepam (Ativan) 2 mg IVP Q6 PRN PRN Reason: Seizure activity Mannitol (Mannitol) 50 gm IV Q3H [facility] Stop: 08/22/16 11:31 Metoprolol Tartrate (Lopressor) 5 mg IVP Q6 [facility] Last Admin: 08/21/16 13:05 Dose: 5 mg Pantoprazole Sodium (Protonix Inj) 40 mg IVP DAILY [facility] Last Admin: 08/21/16 09:07 Dose: 40 mg Thiamine HCl (Vitamin B1 Tab) 100 mg PO DAILY [facility] Last Admin: 08/21/16 09:07 Dose: 100 mg - Labs Labs: 08/21/16 04:20 08/21/16 04:20 PT 10.8 Seconds (9.8-13.1) 08/19/16 18:00 INR 1.0 (0.9-1.2) 08/19/16 18:00 APTT 22.9 Seconds (25.6-37.1) L 08/19/16 18:00 Assessment and Plan (1) CVA (cerebral vascular accident) Status: Acute Attending/Attestation - Attestation I have personally seen and examined this patient.: Yes I have fully participated in the care of the patient.: Yes I have reviewed all pertinent clinical information, including history, physical exam and plan: Yes Notes (Text): 08/21/16 14:25 I have seen and examined the patient. Medical records, lab studies, and imaging were reviewed by me and a management plan was formulated on multidisciplinary rounds with resident Dr. Fernandez. I agree with their above documented assessment and plan. Patient has increase in ICH. Starting Mannitol q3h dosing, goal osmolality 300. Patient getting platelets now. Bleed is in non-dominant hemisphere which may decrease morbidity. If the bleed keeps increasing patient will herniate and . He is a poor candidate for surgical decompression. Mortality risk is high, this has been explained to the family. Critical Care Time 35 minutes. Multi-disciplinary rounds were performed with house staff, nursing, speech therapy, respiratory therapy, pharmacy and nutrition with integrated input from the primary team/attending and other consulting services. The documented time is cumulative and includes review of patient data/exams/labs/chart review and examination of the patient on rounds and throughout the day; time is exclusive of any procedures or teaching time. 08/21/16 14:25
--- NOTE | 2016-08-21 08:29 | CP.PCM.CON ---
History of Present Illness - History of Present Illness History of Present Illness: moderate-lg r ICh in motor cortex pt with underlying atrophy - prev cva min [place] no shift is following commands moving r side well dense L hemiparesis thrombocytopenia mult med problems pt poor surgical candidate for obv reasons furthemore do not believ would benefit migel. hemiparesi rec medical rx with HOB elevation,dehydration Past Patient History - Tetanus Immunizations Tetanus Immunization: >10 years Ago - Past Medical History & Family History Past Medical History?: Yes - Past Social History Smoking Status: Light Smoker < 10 Cigarettes Daily Chewing Tobacco Use: No Cigar Use: No Alcohol: Other (ETOH ABUSE) Home Situation {Lives}: With Family - CARDIAC Hx Atrial Fibrillation: Yes Hx Cardia Arrhythmia: Yes Hx Congestive Heart Failure: Yes Hx Hypercholesterolemia: Yes Hx Hypertension: Yes - PULMONARY Hx Respiratory Disorders: No - NEUROLOGICAL Hx 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) Hx Seizures: Yes - HEENT Hx HEENT Problems: No - RENAL Hx Chronic Kidney Disease: No Hx Kidney Stones: No - ENDOCRINE/METABOLIC Hx Diabetes Mellitus Type 2: Yes - HEMATOLOGICAL/ONCOLOGICAL Hx Blood Disorders: No - INTEGUMENTARY Hx Dermatological Problems: No - MUSCULOSKELETAL/RHEUMATOLOGICAL Hx Arthritis: Yes - GASTROINTESTINAL Hx Constipation: Yes - GENITOURINARY/GYNECOLOGICAL Hx Genitourinary Disorders: No - PSYCHIATRIC Hx Psychophysiologic Disorder: Yes Hx Substance Use: No - SURGICAL HISTORY Hx Coronary Artery Bypass Graft: Yes Hx Coronary Stent: Yes - ANESTHESIA Hx Anesthesia: Yes Hx Anesthesia Reactions: No Meds Allergies/Adverse Reactions: Allergies Allergy/AdvReac Type Severity Reaction Status Date / Time No Known Allergies Allergy Verified 09/15/15 10:46 - Medications Medications: Current Medications Atorvastatin Calcium (Lipitor) 40 mg PO DAILY [facility] Folic Acid (Folic Acid) 1 mg PO DAILY [facility] Guaifenesin (Mucinex La) 600 mg PO Q12 [facility] Piperacillin Sod/Tazobactam (Sod 2.25 gm/ Sodium Chloride) 100 mls @ 100 mls/ hr IVPB Q6 [facility] Last Admin: 08/21/16 04:00 Dose: 100 mls/hr Sodium Chloride (Sodium Chloride 0.9%) 1,000 mls @ 60 mls/hr IV .[id number] [facility] Stop: 08/21/16 13:12 Last Admin: 08/20/16 14:00 Dose: 60 mls/hr Levetiracetam 500 mg/ Sodium (Chloride) 105 mls @ 210 mls/hr IVPB Q12 [facility] Last Admin: 08/20/16 21:33 Dose: 210 mls/hr Lorazepam (Ativan) 2 mg IVP Q6 PRN PRN Reason: Seizure activity Metoprolol Tartrate (Lopressor) 5 mg IVP Q6 [facility] Last Admin: 08/21/16 05:00 Dose: 5 mg Pantoprazole Sodium (Protonix Inj) 40 mg IVP DAILY [facility] Last Admin: 08/20/16 08:55 Dose: 40 mg Thiamine HCl (Vitamin B1 Tab) 100 mg PO DAILY [facility] Results - Vital Signs Recent Vital Signs: Last Vital Signs Temp 98.7 F 08/21/16 08:00 Pulse 64 08/21/16 08:00 Resp 18 08/21/16 08:00 BP 130/65 08/21/16 08:00 Pulse Ox 98 08/21/16 08:00 - Labs Result Diagrams: 08/21/16 04:20 08/21/16 04:20 Labs: Laboratory Results - last 24 hr 08/19/16 08/19/16 08/19/16 19:57 19:57 19:57 WBC RBC Hgb Hct MCV MCH MCHC RDW Plt Count MPV Neut % (Auto) Lymph % (Auto) [place] % (Auto) Eos % (Auto) Baso % (Auto) Neut # Lymph # [place] # Eos # Baso # Sodium Potassium Chloride Carbon Dioxide Anion Gap BUN Creatinine Est GFR ( Amer) Est GFR (Non-Af Amer) POC Glucose (mg/dL) Random Glucose Hemoglobin A1c 5.2 Calcium Total Bilirubin AST ALT Alkaline Phosphatase Troponin I Total Protein Albumin Globulin Albumin/Globulin Ratio Homocysteine Procalcitonin Prolactin 34.6 H RPR Nonreactive Blood Type Blood Type Confirm Antibody Screen BBK History Checked 08/19/16 08/20/16 08/20/16 20:00 11:13 14:38 WBC RBC Hgb Hct MCV MCH MCHC RDW Plt Count MPV Neut % (Auto) Lymph % (Auto) [place] % (Auto) Eos % (Auto) Baso % (Auto) Neut # Lymph # [place] # Eos # Baso # Sodium Potassium Chloride Carbon Dioxide Anion Gap BUN Creatinine Est GFR ( Amer) Est GFR (Non-Af Amer) POC Glucose (mg/dL) 153 H Random Glucose Hemoglobin A1c Calcium Total Bilirubin AST ALT Alkaline Phosphatase Troponin I Total Protein Albumin Globulin Albumin/Globulin Ratio Homocysteine 21.4 H Procalcitonin 0.09 L Prolactin RPR Blood Type Blood Type Confirm Antibody Screen BBK History Checked 08/20/16 08/20/16 08/20/16 17:15 20:27 20:32 WBC RBC Hgb Hct MCV MCH MCHC RDW Plt Count MPV Neut % (Auto) Lymph % (Auto) [place] % (Auto) Eos % (Auto) Baso % (Auto) Neut # Lymph # [place] # Eos # Baso # Sodium Potassium Chloride Carbon Dioxide Anion Gap BUN Creatinine Est GFR ( Amer) Est GFR (Non-Af Amer) POC Glucose (mg/dL) 131 H Random Glucose Hemoglobin A1c Calcium Total Bilirubin AST ALT Alkaline Phosphatase Troponin I Total Protein Albumin Globulin Albumin/Globulin Ratio Homocysteine Procalcitonin Prolactin RPR Blood Type A POSITIVE Blood Type Confirm A POSITIVE Antibody Screen Negative BBK History Checked No verified bt 08/20/16 08/21/16 08/21/16 21:58 04:20 04:20 WBC 9.4 RBC 3.16 L Hgb 11.0 L Hct 32.7 L MCV 103.7 H MCH 34.9 H MCHC 33.6 RDW 15.6 H Plt Count 83 L MPV 10.8 Neut % (Auto) 74.4 Lymph % (Auto) 10.1 L [place] % (Auto) 15.2 H Eos % (Auto) 0.0 Baso % (Auto) 0.3 Neut # 7.0 Lymph # 0.9 L [place] # 1.4 H Eos # 0.0 Baso # 0.0 Sodium 138 Potassium 3.5 L Chloride 107 Carbon Dioxide 24 Anion Gap 11 BUN 24 H Creatinine 1.3 Est GFR ( Amer) > 60 Est GFR (Non-Af Amer) 55 POC Glucose (mg/dL) 115 H Random Glucose 99 Hemoglobin A1c Calcium 7.8 L Total Bilirubin 2.1 H AST 46 ALT 48 Alkaline Phosphatase 54 Troponin I 0.5790 H* Total Protein 6.8 Albumin 3.2 L Globulin 3.5 Albumin/Globulin Ratio 0.9 L Homocysteine Procalcitonin Prolactin RPR Blood Type Blood Type Confirm Antibody Screen BBK History Checked 08/21/16 05:52 WBC RBC Hgb Hct MCV MCH MCHC RDW Plt Count MPV Neut % (Auto) Lymph % (Auto) [place] % (Auto) Eos % (Auto) Baso % (Auto) Neut # Lymph # [place] # Eos # Baso # Sodium Potassium Chloride Carbon Dioxide Anion Gap BUN Creatinine Est GFR ( Amer) Est GFR (Non-Af Amer) POC Glucose (mg/dL) 98 Random Glucose Hemoglobin A1c Calcium Total Bilirubin AST ALT Alkaline Phosphatase Troponin I Total Protein Albumin Globulin Albumin/Globulin Ratio Homocysteine Procalcitonin Prolactin RPR Blood Type Blood Type Confirm Antibody Screen BBK History Checked
[2016-08-21] MEDS: guaiFENesin 600 mg ER Tab PO SCH ×2 (09:05→23:35)
--- NOTE | 2016-08-21 09:21 | CARD ---
APPROVED REPORT EXAM: Two-dimensional and M-mode echocardiogram with Doppler and color Doppler. Other Information Quality : GoodRhythm : NSR INDICATION CVA/TIA Cardio Embolic Stroke 2D DIMENSIONS IVSd1.28 (0.7-1.1cm)LVDd5.05 (3.9-5.9cm) LVOT Diameter1.88 (1.8-2.4cm)PWd1.20 (0.7-1.1cm) IVSs1.46 (0.8-1.2cm)LVDs3.93 (2.5-4.0cm) FS (%) 22.2 %PWs1.25 (0.8-1.2cm) M-Mode DIMENSIONS Left Atrium (MM)3.81 (2.5-4.0cm)IVSd1.13 (0.7-1.1cm) Aortic Root3.75 (2.2-3.7cm)LVDd5.44 (4.0-5.6cm) Aortic Cusp Exc.1.84 (1.5-2.0cm)PWd1.13 (0.7-1.1cm) IVSs1.94 cmFS (%) 36 % LVDs3.50 (2.0-3.8cm)PWs2.22 cm Mitral Valve E/A ratio0.0 TDI E/Lateral E'0.0E/Medial E'0.0 LEFT VENTRICLE The left ventricle is normal size. There is borderline to mild concentric left ventricular hypertrophy. The systolic function is mildly impaired. The Ejection Fraction is 35-40%. There is mild to moderate hypokinesis in the apical septal wall. The left ventricular diastolic function is normal. No left ventricle thrombus noted on this study. There is no mass noted in the left ventricle. RIGHT VENTRICLE The right ventricle is normal size. There is normal right ventricular wall thickness. The right ventricular systolic function is normal. ATRIA The left atrium size is normal. The right atrium size is normal. The interatrial septum is intact with no evidence for an atrial septal defect. AORTIC VALVE The aortic valve is normal in structure and function. No aortic regurgitation is present. There is no aortic valvular stenosis. There is no aortic valvular vegetation. MITRAL VALVE Mitral annular calcification is mild. There is no evidence of mitral valve prolapse. There is no mitral valve stenosis. There is no mitral valve regurgitation noted. TRICUSPID VALVE The tricuspid valve is normal in structure and function. There is no tricuspid valve regurgitation noted. There is no tricuspid valve prolapse or vegetation. There is no tricuspid valve stenosis. PULMONIC VALVE The pulmonary valve is normal in structure and function. There is no pulmonic valvular regurgitation. There is no pulmonic valvular stenosis. GREAT VESSELS The aortic root is normal in size. The IVC is normal in size and collapses >50% with inspiration. PERICARDIAL EFFUSION The pericardium appears normal. There is no pleural effusion. <Conclusion> Technically Poor Echo The left ventricle is normal size. There is borderline to mild concentric left ventricular hypertrophy. The systolic function is mildly impaired. The Ejection Fraction is 35-40%.
[2016-08-21] MEDS ORDERED: Chlorhexidine Gluconate 1 APPL/PKT TP ONE ×3 (09:47→18:07)
--- NOTE | 2016-08-21 11:33 | CT ---
PROCEDURE: CT HEAD WITHOUT CONTRAST. HISTORY: assess hemorrhagic stroke COMPARISON: Head CT from 08/19/2016 and MRI from 08/20/2016. TECHNIQUE: Axial computed tomography images were obtained through the head/brain without intravenous contrast. Radiation dose: Total exam DLP = 1765.36 mGy-cm. This CT exam was performed using one or more of the following dose reduction techniques: Automated exposure control, adjustment of the mA and/or kV according to patient size, and/or use of iterative reconstruction technique. FINDINGS: HEMORRHAGE: Large area of intraparenchymal hemorrhage involving the right cerebral hemisphere measuring approximately 5 x 7 x 6.3 centimeters. The hemorrhage involves the right oriental orthodox, parietal lobes. Area of intraparenchymal hemorrhage is increased since the prior MRI from 08/20/2016. BRAIN: Hypodensity surrounding the area of intraparenchymal hemorrhage in the right cerebral hemisphere represents edema. Considerable mass-effect is identified upon the surrounding sulci. There is near complete effacement of the posterior horn of the right lateral ventricle. Significant mass-effect on the anterior horn. There is a small amount of right to left midline shift measuring approximately 5 millimeters. Possible uncal herniation on the right. No definite evidence of transtentorial herniation. Patchy hypodensities noted in the white matter of the left cerebral hemisphere likely from old ischemic injury. VENTRICLES: As above. CALVARIUM: Unremarkable. PARANASAL SINUSES: Layering fluid in the right maxillary sinus. MASTOID AIR CELLS: Unremarkable as visualized. No inflammatory changes. OTHER FINDINGS: None. IMPRESSION: Increasing area of intraparenchymal hemorrhage involving the right cerebral hemisphere measuring now approximately 5 x 7 x 6.3 centimeters. Extensive edema surrounding the ureter hemorrhage. There is increasing mass effect on the right cerebral hemisphere with near complete effacement of the posterior horn of the lateral ventricle with increased mass-effect on the lateral ventricle. 5 millimeter midline shift to the left. Possible uncal herniation on the right. No definite evidence of transtentorial herniation. Discussed with Dr. Roy at approximately 11:30 a.m. on 08/21/2016.
[2016-08-21] MEDS: levETIRAcetam 500 MG in Sodium Chloride 0.9% 100 ML IVPB SCH ×2 (11:39→21:31)
[2016-08-21] MEDS ORDERED: Mannitol 12.5 gm/50 ml Inj IV ONE (14:11)
[2016-08-21] MEDS ORDERED: Nicardipine 20 MG/200 ML 20 MG/200 ML BAG IV ONE ×2 (14:11→19:20)
[2016-08-21] MEDS ORDERED: Mannitol 12.5 gm/50 ml Inj IV SCH (14:30)
[2016-08-21] MEDS ORDERED: MANNITOL 20% IV ONE (15:30)
--- NOTE | 2016-08-21 16:19 | CP.PCM.PN ---
Subjective - Date & Time of Evaluation Date of Evaluation: 08/21/16 Time of Evaluation: 16:17 - Subjective Subjective: Repeat head CT scan revealed large left parietal bleed, ASA and Lovenox were discontinued I spoke to Family, Sign [employer] Supervisor is Dr. Arnold, CABG few years ago at [place] , no intervention in past year Objective - Vital Signs/Intake and Output Vital Signs (last 24 hours): Temp Pulse Resp BP Pulse Ox 100.6 F H 89 18 143/78 99 08/21/16 12:15 08/21/16 14:00 08/21/16 14:00 08/21/16 14:00 08/21/16 14:00 Intake and Output: 08/21/16 08/21/16 06:59 18:59 Intake Total 1400 0 Output Total 500 Balance 900 0 - Medications Medications: Current Medications Atorvastatin Calcium (Lipitor) 40 mg PO DAILY [facility] Last Admin: 08/21/16 09:05 Dose: 40 mg Folic Acid (Folic Acid) 1 mg PO DAILY [facility] Last Admin: 08/21/16 09:05 Dose: 1 mg Guaifenesin (Mucinex La) 600 mg PO Q12 [facility] Last Admin: 08/21/16 09:05 Dose: 600 mg Piperacillin Sod/Tazobactam (Sod 2.25 gm/ Sodium Chloride) 100 mls @ 100 mls/ hr IVPB Q6 [facility] Last Admin: 08/21/16 09:08 Dose: 100 mls/hr Levetiracetam 500 mg/ Sodium (Chloride) 105 mls @ 210 mls/hr IVPB Q12 [facility] Last Admin: 08/21/16 11:39 Dose: 210 mls/hr Nicardipine HCl (Cardene Iv Premix) 20 mg in 200 mls @ 50 mls/hr IV .Q4H ONE; 5 MG/HR PRN Reason: Protocol Stop: 08/21/16 18:10 Last Titration: 08/21/16 15:00 Dose: 5 mg/hr, 50 mls/hr Mannitol (Mannitol) 750 mls @ 750 mls/hr IV .Q1H ONE Stop: 08/21/16 16:29 Last Admin: 08/21/16 16:00 Dose: 750 mls/hr Mannitol (Mannitol) 250 mls @ 83.333 mls/hr IV .Q3H [facility] Stop: 08/22/16 15:29 Lorazepam (Ativan) 2 mg IVP Q6 PRN PRN Reason: Seizure activity Metoprolol Tartrate (Lopressor) 5 mg IVP Q6 [facility] Last Admin: 08/21/16 13:05 Dose: 5 mg Pantoprazole Sodium (Protonix Inj) 40 mg IVP DAILY [facility] Last Admin: 08/21/16 09:07 Dose: 40 mg Thiamine HCl (Vitamin B1 Tab) 100 mg PO DAILY [facility] Last Admin: 08/21/16 09:07 Dose: 100 mg - Labs Labs: 08/21/16 04:20 08/21/16 04:20 PT 10.8 Seconds (9.8-13.1) 08/19/16 18:00 INR 1.0 (0.9-1.2) 08/19/16 18:00 APTT 22.9 Seconds (25.6-37.1) L 08/19/16 18:00 - ENT Exam ENT Exam: Mucous Membranes Moist - Neck Exam Neck Exam: Normal Inspection - Respiratory Exam Respiratory Exam: Rhonchi - Cardiovascular Exam Cardiovascular Exam: Irregular Rhythm - Extremities Exam Extremities Exam: Normal Inspection Assessment and Plan - Assessment and Plan (Free Text) Assessment: Left parietal cerebral hemorrhage A Fib CAD S/p CABG Seizure disorder Systolic heart failure Echo revealed EF 35-40% Plan: Cont Atorvastatin Calcium (Lipitor) 40 mg PO DAILY [facility] Last Admin: 08/21/16 09:05 Dose: 40 mg Folic Acid (Folic Acid) 1 mg PO DAILY [facility] Last Admin: 08/21/16 09:05 Dose: 1 mg Guaifenesin (Mucinex La) 600 mg PO Q12 [facility] Last Admin: 08/21/16 09:05 Dose: 600 mg Piperacillin Sod/Tazobactam (Sod 2.25 gm/ Sodium Chloride) 100 mls @ 100 mls/ hr IVPB Q6 [facility] Last Admin: 08/21/16 09:08 Dose: 100 mls/hr Levetiracetam 500 mg/ Sodium (Chloride) 105 mls @ 210 mls/hr IVPB Q12 [facility] Last Admin: 08/21/16 11:39 Dose: 210 mls/hr Nicardipine HCl (Cardene Iv Premix) 20 mg in 200 mls @ 50 mls/hr IV .Q4H ONE; 5 MG/HR PRN Reason: Protocol Stop: 08/21/16 18:10 Last Titration: 08/21/16 15:00 Dose: 5 mg/hr, 50 mls/hr Mannitol (Mannitol) 750 mls @ 750 mls/hr IV .Q1H ONE Stop: 08/21/16 16:29 Last Admin: 08/21/16 16:00 Dose: 750 mls/hr Mannitol (Mannitol) 250 mls @ 83.333 mls/hr IV .Q3H [facility] Stop: 08/22/16 15:29 Lorazepam (Ativan) 2 mg IVP Q6 PRN PRN Reason: Seizure activity Metoprolol Tartrate (Lopressor) 5 mg IVP Q6 [facility] Last Admin: 08/21/16 13:05 Dose: 5 mg Pantoprazole Sodium (Protonix Inj) 40 mg IVP DAILY [facility] Last Admin: 08/21/16 09:07 Dose: 40 mg Thiamine HCl (Vitamin B1 Tab) 100 mg PO DAILY [facility] Last Admin: 08/21/16 09:07 Dose: 100 mg Start Enalapril 2.5 mg daily
[2016-08-21 18:30] LABS: ABG ALLEN TEST YES; ARTERIAL BLOOD GAS HCO3 26.4 mmol/L (21-28); ARTERIAL BLOOD GAS HEMOGLOBIN 10.3 g/dL (11.7-17.4); ARTERIAL BLOOD GAS O2 CONTENT 13.5 ML/dL (15-23); ARTERIAL BLOOD GAS O2 SAT 96.6 % (95-98); ARTERIAL BLOOD GAS PCO2 23 mm/Hg (35-45); ARTERIAL BLOOD GAS PO2 58 mm/Hg (80-100); ARTERIAL BLOOD GAS TCO2 23.3 mmol/L (22-28)
[2016-08-21] MEDS ORDERED: Etomidate 20 mg/10ml Inj IV ONE ×2 (18:44→18:45)
[2016-08-21] MEDS ORDERED: Midazolam 2 MG/2 ML VIAL ONE (18:56)
[2016-08-21] MEDS ORDERED: Midazolam 2 MG/2 ML VIAL IV ONE (19:12)
[2016-08-21] MEDS ORDERED: Propofol 10 mg/ml 1,000 MG/100 ML VIAL IV SCH (19:15)
--- NOTE | 2016-08-21 19:17 | PCM.PROC ---
Procedures Attestation:: I certify that I have explained the specified Operation(s) or Procedure(s), risks, benefits and reasonable alternatives to the Patient and/or other person responsible. The opportunity was given to ask questions and all questions answered - Intubation Time Out Performed: Yes Sedative: Etomidate Mg Given: 20 Laryngoscope: Glidescope ET Tube Size: 8.0 ET Tube Uncuffed: No ET Tube Secured at Depth: 26 ET Tube Secured Locarion: Lips ET Tube Placement Confirmation: Visualized Passing Through Cords, Breath Sounds Equal Bilaterally, No Breath Sounds Over Epigastrum, Confirmation w/Capnometry Patient Tolerated Procedure: Well, No Complications Procedure Immediate Complications: None
[2016-08-21 19:56] LABS: ABG ALLEN TEST YES; ARTERIAL BLOOD GAS HCO3 26.3 mmol/L (21-28); ARTERIAL BLOOD GAS HEMOGLOBIN 10.6 g/dL (11.7-17.4); ARTERIAL BLOOD GAS O2 CAPACITY 14.8 mL/dL (16-24); ARTERIAL BLOOD GAS O2 CONTENT 14.7 ML/dL (15-23); ARTERIAL BLOOD GAS O2 SAT 99.2 % (95-98); ARTERIAL BLOOD GAS PCO2 26 mm/Hg (35-45); ARTERIAL BLOOD GAS PH 7.56 (7.35-7.45); ARTERIAL BLOOD GAS PO2 173 mm/Hg (80-100); ARTERIAL BLOOD GAS TCO2 24.1 mmol/L (22-28)
[2016-08-22 05:18] LABS: HEMOGLOBIN 10.3 g/dL (12.0-18.0); MEAN CORPUSCULAR HEMOGLOBIN 35.3 pg (27.0-31.0); MEAN CORPUSCULAR HGB CONC 33.3 g/dL (33.0-37.0); RBC 2.93 Mil/uL (4.40-5.90); RED CELL DISTRIBUTION WIDTH 16.1 % (11.5-14.5)
[2016-08-22 05:20] LABS: CALCIUM 7.5 mg/dL (8.4-10.2)
[2016-08-22 05:59] LABS: ABG ALLEN TEST YES; ARTERIAL BLOOD GAS HEMOGLOBIN 10.5 g/dL (11.7-17.4); ARTERIAL BLOOD GAS O2 CAPACITY 14.8 mL/dL (16-24); ARTERIAL BLOOD GAS O2 CONTENT 14.7 ML/dL (15-23); ARTERIAL BLOOD GAS O2 SAT 99.2 % (95-98); ARTERIAL BLOOD GAS PCO2 31 mm/Hg (35-45); ARTERIAL BLOOD GAS PO2 186 mm/Hg (80-100); ARTERIAL BLOOD GAS TCO2 25.2 mmol/L (22-28)
--- NOTE | 2016-08-22 07:24 | CP.PCM.PN ---
Subjective - Date & Time of Evaluation Date of Evaluation: 08/22/16 Time of Evaluation: 08:30 - Subjective Subjective: Patient was seen and evaluated in ICU. Intubated for airway protection yesterday and currently on MV PRVC mode 12/500/5/50 %, lethargic. Off propofol drip at present Follows simple commands, moving his RUE No acute issues overnight BP 135/71 HR 82 Tmax 101 I/O 3725/2250 on Jevity @ 60 ml/hr Objective - Vital Signs/Intake and Output Vital Signs (last 24 hours): Temp Pulse Resp BP Pulse Ox 99.9 F H 75 22 143/81 98 08/22/16 04:00 08/22/16 06:00 08/22/16 06:00 08/22/16 06:00 08/22/16 06:00 Intake and Output: 08/22/16 08/22/16 06:59 18:59 Intake Total 1916 Output Total 1450 Balance 466 - Medications Medications: Current Medications Atorvastatin Calcium (Lipitor) 40 mg PO DAILY [facility] Last Admin: 08/21/16 09:05 Dose: 40 mg Enalapril Maleate (Vasotec) 2.5 mg PO DAILY [facility] Last Admin: 08/21/16 18:05 Dose: 2.5 mg Folic Acid (Folic Acid) 1 mg PO DAILY [facility] Last Admin: 08/21/16 09:05 Dose: 1 mg Guaifenesin (Mucinex La) 600 mg PO Q12 [facility] Last Admin: 08/21/16 23:35 Dose: 600 mg Piperacillin Sod/Tazobactam (Sod 2.25 gm/ Sodium Chloride) 100 mls @ 100 mls/ hr IVPB Q6 [facility] Last Admin: 08/22/16 03:08 Dose: 100 mls/hr Levetiracetam 500 mg/ Sodium (Chloride) 105 mls @ 210 mls/hr IVPB Q12 [facility] Last Admin: 08/21/16 21:31 Dose: 210 mls/hr Mannitol (Mannitol) 250 mls @ 83.333 mls/hr IV .Q3H [facility] Stop: 08/22/16 15:29 Last Admin: 08/22/16 05:54 Dose: 83.333 mls/hr Propofol (Diprivan) 1,000 mg in 100 mls @ 2.858 mls/hr IV .Q24H [facility]; 5 MCG/KG/ MIN PRN Reason: Protocol Stop: 08/22/16 19:04 Last Admin: 08/21/16 20:30 Dose: 5 mcg/kg/min, 2.858 mls/hr Metoprolol Tartrate (Lopressor) 5 mg IVP Q6 [facility] Last Admin: 08/21/16 22:00 Dose: Not Given Pantoprazole Sodium (Protonix Inj) 40 mg IVP DAILY [facility] Last Admin: 08/21/16 09:07 Dose: 40 mg Thiamine HCl (Vitamin B1 Tab) 100 mg PO DAILY [facility] Last Admin: 08/21/16 09:07 Dose: 100 mg - Labs Labs: 08/22/16 04:20 08/22/16 04:20 PT 10.8 Seconds (9.8-13.1) 08/19/16 18:00 INR 1.0 (0.9-1.2) 08/19/16 18:00 APTT 22.9 Seconds (25.6-37.1) L 08/19/16 18:00 - Constitutional Appears: Other (intubated on MV , lethargic) - Head Exam Head Exam: ATRAUMATIC, NORMOCEPHALIC - Eye Exam Eye Exam: PERRL - ENT Exam ENT Exam: Mucous Membranes Dry, Normal Exam - Neck Exam Neck Exam: Full ROM, Normal Inspection - Respiratory Exam Respiratory Exam: Clear to Ausculation Bilateral, NORMAL BREATHING PATTERN. absent: Rales, Rhonchi, Wheezes - Cardiovascular Exam Cardiovascular Exam: Irregular Rhythm, RRR, +S1, +S2. absent: JVD - GI/Abdominal Exam GI & Abdominal Exam: Soft, Normal Bowel Sounds. absent: Distended, Guarding, Tenderness, Rebound - Rectal Exam Rectal Exam: Deferred - Extremities Exam Extremities Exam: Normal Capillary Refill, Normal Inspection. absent: Pedal Edema - Neurological Exam Additional comments: lethargic folows simple command moves his RUE - Skin Skin Exam: Dry, Warm Assessment and Plan - Assessment and Plan (Free Text) Assessment: 71 years old male with hx of non compliance with medication, CVA, CAD s/p CABG, CHF, Alcohol abuse with intoxication, A Fib, and Seizure was brought from home to the ED because of 3 episodes of witnessed seizures. In the ED patient was found to be in A Fib with rapid response, have a Temperature of 102F, Dysarthric, with left side weakness and a NIHSS of 13. CT head in ER showed old CVA and no acute infarct or bleed. Neurology was consulted and patient started on ASA, Lovenox therapeutic , lipitor and cardizem drip for rate control.MRI of the brain performed 12 hours from presentation showed large right parietal area bleed. ASa, lovenox were held and Vitamin K and platelet ordered to reverse their effect. Neurology and neurosurgery informed. He was given 1 dose DDAVP , started on Manitol drip and Keppra for seizure prophylaxis. At present very lethargic , intubated for airway protection ,responding to noxious stimuli ,following simple commands by moving RUE , off manitol and cardizem drip. 1.Intracranial bleed very lethargic ,intubated on MV for airway protection initial CT head showed old CVA , no bleed no acute stroke MRI head showed :Large right parietal hemorrhage with edema Follow up CT [id number] 6.3 right parietal intraparenchymal hemorrhage , extensive edema with midline shift Neurology and neurosurgery on consult Patient is not a surgical candidate ASA and lovenox held Vitamin K , Platelet transfusion given DDAVP 1 dose was given as well as Manitol to decrease the intra cerebral edema Patient intubated for airway protection Keep HOB elevated on Keppra for seizure prophylaxis 2. Seizure episodes most likely due to new CVA with some episodes of focal tremors to RUE MRI with large right parietal bleed Neurology consulted . Dr. Celestin started on Keppra for seizure prophylaxis ativan PRN Thiamine, folic acid , MVI 3. Suspected Aspiration Pneumonia- less likely Tmax 102 on admission with coughing spells that has been going on for months as per patient Consult Dr Rodriguez Supervisor [employer] ID consult appreciated repeat CXR showed no infiltrate Continue Zosyn empirically blood and sputum cx with no growth 4. Suspected Sepsis-- less likely procalcitonin - normal Cultures with no growth repeat CXR showed no infiltrate Continue Zosyn lactic acid elevation most likely secondary to tissue hypoperfusion and seizure episodes consult with Dr Tello ID appreciated 5. A Fib with RVR rate controlled Cardizem drip discontinued on Metoprolol IV no anticoagulation due to intracranial bleed cardiology consult with Dr James appreciated Echo showed LVH and decreased EF 35-40 % 6. Elevated Troponin probably related to Afib with RVR less likely NSTEMI cardiology consulted Echo showed EF 35-40 % Continue lopressor d/c ASA due to intracranial bleed 7. Chronic CHF systolic dysfunction Cardiology consulted EF 35 -40 % on Lopressor and enalapril 8. JONELLE Most likely prerenal Cr trending up to 1.7 Repeat BMP in AM 9. DM ruled out HbA1c 5.4 10. Chronic Thrombocytopenia plt 99 k Most likely related to ETOH abuse 11. Stress ulcer prophylaxis pantoprazole 12. DVT Prophylaxis SCD d/c lovenox 13. Hypokalemia replace with KCl 14. History of ETOH dependence / alcoholism ETOH levels < 10 started thiamine, Folic acid Ativan PRN for seizure 15. Feeding Jevity via NGT
[2016-08-22] MEDS: guaiFENesin 600 mg ER Tab PO SCH (08:22)
[2016-08-22] MEDS: levETIRAcetam 500 MG in Sodium Chloride 0.9% 100 ML IVPB SCH ×2 (08:24→20:41)
--- NOTE | 2016-08-22 08:35 | CP.CCUPN ---
<Rachael Fernandez - Last Filed: 08/22/16 11:47> CCU Subjective - Physician Review Subjective (Free Text): 08/22/16 08:23 71 YO M w. h/o CAD, Afib, had a right sided CVA w/ hemorrhagic conversion and has been progressing in size. - This morning patient is seen on a ventilator, lethargic but responding to command and is able to wiggle fingers and toes but is difficult to awake. He is noted to have a tremmor/ seziure activity going on of his right lower extremity. Patient has been off the Propofol drip since 7 this morning. Vitals this mornin/71 HR: 84, Temperature of 101, RR: 27 Vent settings: RR:12, TV: 500, PEEP 5, FIO2: 50 I/O : 3725/2250 08/22/16 09:16 08/22/16 11:39 CCU Objective - Vital Signs / Intake & Output Vital Signs (Last 4 hours): Vital Signs Temp Pulse Resp BP Pulse Ox 08/22/16 08:00 101 F H 84 27 H 135/71 100 08/22/16 06:00 75 22 143/81 98 08/22/16 05:00 88 23 143/75 96 Intake and Output (Last 8hrs): Intake & Output 08/21/16 08/22/16 08/22/16 22:59 06:59 14:59 Intake Total 1812 1234 83 Output Total 800 1450 Balance 1012 -216 83 Intake: IV 382 714 83 Intake, Piggyback 1050 100 Oral 150 Tube Feeding 130 420 Free Water Flush 100 Output: Urine 800 1450 Urethral (Rosa) 800 1450 - Physical Exam Physical Exam Limitations: Positive for: Other (Intubated on MV, difficult to arouse) Head: Positive for: Atraumatic, Normocephalic Pupils: Positive for: PERRL, Sluggish Mouth: Positive for: Dry Respiratory/Chest: Positive for: Clear to Auscultation, Good Air Exchange Cardiovascular: Positive for: Normal S1, S2, Irregular Rhythm. Negative for: Murmurs Abdomen: Positive for: Normal Bowel Sounds, Feeding Tubes (OG tube). Negative for: Tenderness, Distention, Rebound Upper Extremity: Positive for: NORMAL PULSES, Other (Right lower extremity resting tremmor noted. Grasp reflex intact of right hand. Unable to follow comands to move. Left extremities unable to move.). Negative for: Edema Neurological: Positive for: Other (GCS: 4 Pt is unable to open eyes. He responds to verbal comand by wighling his toes. Is unable to speak at all). Negative for: Speech Normal Skin: Positive for: Warm, Normal Color Psychiatric: Positive for: Lethargic, Other (Responds to verbal stimuli by wiggling fingers and toes. But unable to open eyes.) - Medications Active Medications: Active Medications Generic Name Dose Route Start Last Admin Trade Name Freq PRN Reason Stop Dose Admin Atorvastatin Calcium 40 mg 08/20/16 15:00 08/21/16 09:05 Lipitor PO 40 mg DAILY ROBERT Administration Enalapril Maleate 2.5 mg 08/21/16 16:30 08/21/16 18:05 Vasotec PO 2.5 mg DAILY ROBERT Administration Folic Acid 1 mg 08/21/16 09:00 08/21/16 09:05 Folic Acid PO 1 mg DAILY ROBERT Administration Guaifenesin 600 mg 08/20/16 21:00 08/21/16 23:35 Mucinex La PO 600 mg Q12 ROBERT Administration Piperacillin Sod/Tazobactam 100 mls @ 100 mls/hr 08/20/16 16:00 08/22/16 03: 08 Sod 2.25 gm/ Sodium Chloride IVPB 100 mls/hr Q6 ROBERT Administration Levetiracetam 500 mg/ Sodium 105 mls @ 210 mls/hr 08/20/16 21:00 08/21/16 21: 31 Chloride IVPB 210 mls/hr Q12 ROBERT Administration Mannitol 250 mls @ 83.333 mls/hr 08/21/16 15:30 08/22/16 05:54 Mannitol IV 08/22/16 15:29 83.333 mls/hr .Q3H ROBERT Administration Propofol 1,000 mg in 100 mls @ 2.858 mls/hr 08/21/16 19:15 08/21/16 20:30 Diprivan IV 08/22/16 19:04 5 mcg/kg/min .Q24H ROBERT 2.858 mls/hr Protocol Administration 5 MCG/KG/MIN Metoprolol Tartrate 5 mg 08/20/16 22:00 08/21/16 22:00 Lopressor IVP Not Given Q6 ROBERT Pantoprazole Sodium 40 mg 08/20/16 09:00 08/21/16 09:07 Protonix Inj IVP 40 mg DAILY ROBERT Administration Thiamine HCl 100 mg 08/21/16 09:00 08/21/16 09:07 Vitamin B1 Tab PO 100 mg DAILY ROBERT Administration - Patient Studies Lab Studies: Microbiology Studies 08/20/16 14:38 Blood Culture - Preliminary Blood-Venous NO GROWTH AFTER 24 HOURS 08/20/16 09:45 Urine Culture - Final Urine,Rosa No Growth (<1,000 CFU/ML) Lab Studies 08/22/16 08/22/16 08/22/16 Range/Units 06:39 05:38 04:20 WBC (4.8-10.8) K/uL RBC (4.40-5.90) Mil/uL Hgb (12.0-18.0) g/dL Hct (35.0-51.0) % MCV (80.0-94.0) fl MCH (27.0-31.0) pg MCHC (33.0-37.0) g/dL RDW (11.5-14.5) % Plt Count (130-400) K/uL pCO2 31 L (35-45) mm/Hg pO2 186 H (80-100) mm/Hg HCO3 26.0 (21-28) mmol/L ABG pH 7.50 H (7.35-7.45) ABG Total CO2 25.2 (22-28) mmol/L ABG O2 Saturation 99.2 H (95-98) % ABG O2 Content 14.7 L (15-23) ML/dL ABG Base Excess 1.4 (-2.0-3.0) mmol/L ABG Hemoglobin 10.5 L (11.7-17.4) g/dL ABG Carboxyhemoglobin 1.1 (0.5-1.5) % POC ABG HHb (Measured) 0.8 (0.0-5.0) % ABG Methemoglobin 1.5 (0.0-3.0) % ABG O2 Capacity 14.8 L (16-24) mL/dL Ezra Test Yes A-a O2 Difference 132.0 mm/Hg Hgb O2 Saturation 96.5 (95.0-98.0) % Liter Flow Vent Mode A/c Mechanical Rate 12 FiO2 50.0 % Tidal Volume 500 PEEP 5 Sodium 138 (132-148) mmol/l Potassium 3.5 L (3.6-5.0) MMOL/L Chloride 107 (98-107) mmol/L Carbon Dioxide 23 (22-30) mmol/L Anion Gap 12 (10-20) BUN 27 H (9-20) mg/dl Creatinine 1.7 H (0.8-1.5) mg/dL Est GFR ( Amer) 48 Est GFR (Non-Af Amer) 40 POC Glucose (mg/dL) 122 H (65-110) mg/dL Random Glucose 110 (75-110) mg/dL Serum Osmolality (272-300) mosm/kg Calcium 7.5 L (8.4-10.2) mg/dL 08/22/16 08/21/16 08/21/16 Range/Units 04:20 22:47 20:15 WBC 9.0 (4.8-10.8) K/uL RBC 2.93 L (4.40-5.90) Mil/uL Hgb 10.3 L (12.0-18.0) g/dL Hct 31.0 L (35.0-51.0) % MCV 106.0 H D (80.0-94.0) fl MCH 35.3 H (27.0-31.0) pg MCHC 33.3 (33.0-37.0) g/dL RDW 16.1 H (11.5-14.5) % Plt Count 99 L (130-400) K/uL pCO2 (35-45) mm/Hg pO2 (80-100) mm/Hg HCO3 (21-28) mmol/L ABG pH (7.35-7.45) ABG Total CO2 (22-28) mmol/L ABG O2 Saturation (95-98) % ABG O2 Content (15-23) ML/dL ABG Base Excess (-2.0-3.0) mmol/L ABG Hemoglobin (11.7-17.4) g/dL ABG Carboxyhemoglobin (0.5-1.5) % POC ABG HHb (Measured) (0.0-5.0) % ABG Methemoglobin (0.0-3.0) % ABG O2 Capacity (16-24) mL/dL Ezra Test A-a O2 Difference mm/Hg Hgb O2 Saturation (95.0-98.0) % Liter Flow Vent Mode Mechanical Rate FiO2 % Tidal Volume PEEP Sodium (132-148) mmol/l Potassium (3.6-5.0) MMOL/L Chloride (98-107) mmol/L Carbon Dioxide (22-30) mmol/L Anion Gap (10-20) BUN (9-20) mg/dl Creatinine (0.8-1.5) mg/dL Est GFR ( Amer) Est GFR (Non-Af Amer) POC Glucose (mg/dL) 135 H (65-110) mg/dL Random Glucose (75-110) mg/dL Serum Osmolality 315 H (272-300) mosm/kg Calcium (8.4-10.2) mg/dL 08/21/16 08/21/16 08/21/16 Range/Units 20:00 18:18 16:10 WBC (4.8-10.8) K/uL RBC (4.40-5.90) Mil/uL Hgb (12.0-18.0) g/dL Hct (35.0-51.0) % MCV (80.0-94.0) fl MCH (27.0-31.0) pg MCHC (33.0-37.0) g/dL RDW (11.5-14.5) % Plt Count (130-400) K/uL pCO2 26 L 23 L (35-45) mm/Hg pO2 173 H 58 L (80-100) mm/Hg HCO3 26.3 26.4 (21-28) mmol/L ABG pH 7.56 H 7.60 H (7.35-7.45) ABG Total CO2 24.1 23.3 (22-28) mmol/L ABG O2 Saturation 99.2 H 96.6 (95-98) % ABG O2 Content 14.7 L 13.5 L (15-23) ML/dL ABG Base Excess 1.8 2.0 (-2.0-3.0) mmol/L ABG Hemoglobin 10.6 L 10.3 L (11.7-17.4) g/dL ABG Carboxyhemoglobin 1.6 H 2.1 H (0.5-1.5) % POC ABG HHb (Measured) 0.8 3.3 (0.0-5.0) % ABG Methemoglobin 1.4 1.4 (0.0-3.0) % ABG O2 Capacity 14.8 L 14.0 L (16-24) mL/dL Ezra Test Yes Yes A-a O2 Difference 151.0 141.0 mm/Hg Hgb O2 Saturation 96.3 93.2 L (95.0-98.0) % Liter Flow 3 Vent Mode Prvc/ac Nc Mechanical Rate 12 FiO2 50.0 32.0 % Tidal Volume 500 PEEP 5 Sodium (132-148) mmol/l Potassium (3.6-5.0) MMOL/L Chloride (98-107) mmol/L Carbon Dioxide (22-30) mmol/L Anion Gap (10-20) BUN (9-20) mg/dl Creatinine (0.8-1.5) mg/dL Est GFR ( Amer) Est GFR (Non-Af Amer) POC Glucose (mg/dL) 134 H (65-110) mg/dL Random Glucose (75-110) mg/dL Serum Osmolality (272-300) mosm/kg Calcium (8.4-10.2) mg/dL 08/21/16 Range/Units 11:13 WBC (4.8-10.8) K/uL RBC (4.40-5.90) Mil/uL Hgb (12.0-18.0) g/dL Hct (35.0-51.0) % MCV (80.0-94.0) fl MCH (27.0-31.0) pg MCHC (33.0-37.0) g/dL RDW (11.5-14.5) % Plt Count (130-400) K/uL pCO2 (35-45) mm/Hg pO2 (80-100) mm/Hg HCO3 (21-28) mmol/L ABG pH (7.35-7.45) ABG Total CO2 (22-28) mmol/L ABG O2 Saturation (95-98) % ABG O2 Content (15-23) ML/dL ABG Base Excess (-2.0-3.0) mmol/L ABG Hemoglobin (11.7-17.4) g/dL ABG Carboxyhemoglobin (0.5-1.5) % POC ABG HHb (Measured) (0.0-5.0) % ABG Methemoglobin (0.0-3.0) % ABG O2 Capacity (16-24) mL/dL Ezra Test A-a O2 Difference mm/Hg Hgb O2 Saturation (95.0-98.0) % Liter Flow Vent Mode Mechanical Rate FiO2 % Tidal Volume PEEP Sodium (132-148) mmol/l Potassium (3.6-5.0) MMOL/L Chloride (98-107) mmol/L Carbon Dioxide (22-30) mmol/L Anion Gap (10-20) BUN (9-20) mg/dl Creatinine (0.8-1.5) mg/dL Est GFR ( Amer) Est GFR (Non-Af Amer) POC Glucose (mg/dL) 120 H (65-110) mg/dL Random Glucose (75-110) mg/dL Serum Osmolality (272-300) mosm/kg Calcium (8.4-10.2) mg/dL Laboratory Results - last 24 hr 08/21/16 08/21/16 08/21/16 11:13 16:10 18:18 WBC RBC Hgb Hct MCV MCH MCHC RDW Plt Count pCO2 23 L pO2 58 L HCO3 26.4 ABG pH 7.60 H ABG Total CO2 23.3 ABG O2 Saturation 96.6 ABG O2 Content 13.5 L ABG Base Excess 2.0 ABG Hemoglobin 10.3 L ABG Carboxyhemoglobin 2.1 H POC ABG HHb (Measured) 3.3 ABG Methemoglobin 1.4 ABG O2 Capacity 14.0 L Ezra Test Yes A-a O2 Difference 141.0 Hgb O2 Saturation 93.2 L Liter Flow 3 Vent Mode Nc Mechanical Rate FiO2 32.0 Tidal Volume PEEP Sodium Potassium Chloride Carbon Dioxide Anion Gap BUN Creatinine Est GFR ( Amer) Est GFR (Non-Af Amer) POC Glucose (mg/dL) 120 H 134 H Random Glucose Serum Osmolality Calcium 08/21/16 08/21/16 08/21/16 20:00 20:15 22:47 WBC RBC Hgb Hct MCV MCH MCHC RDW Plt Count pCO2 26 L pO2 173 H HCO3 26.3 ABG pH 7.56 H ABG Total CO2 24.1 ABG O2 Saturation 99.2 H ABG O2 Content 14.7 L ABG Base Excess 1.8 ABG Hemoglobin 10.6 L ABG Carboxyhemoglobin 1.6 H POC ABG HHb (Measured) 0.8 ABG Methemoglobin 1.4 ABG O2 Capacity 14.8 L Ezra Test Yes A-a O2 Difference 151.0 Hgb O2 Saturation 96.3 Liter Flow Vent Mode Prvc/ac Mechanical Rate 12 FiO2 50.0 Tidal Volume 500 PEEP 5 Sodium Potassium Chloride Carbon Dioxide Anion Gap BUN Creatinine Est GFR ( Amer) Est GFR (Non-Af Amer) POC Glucose (mg/dL) 135 H Random Glucose Serum Osmolality 315 H Calcium 08/22/16 08/22/16 08/22/16 04:20 04:20 05:38 WBC 9.0 RBC 2.93 L Hgb 10.3 L Hct 31.0 L MCV 106.0 H D MCH 35.3 H MCHC 33.3 RDW 16.1 H Plt Count 99 L pCO2 31 L pO2 186 H HCO3 26.0 ABG pH 7.50 H ABG Total CO2 25.2 ABG O2 Saturation 99.2 H ABG O2 Content 14.7 L ABG Base Excess 1.4 ABG Hemoglobin 10.5 L ABG Carboxyhemoglobin 1.1 POC ABG HHb (Measured) 0.8 ABG Methemoglobin 1.5 ABG O2 Capacity 14.8 L Ezra Test Yes A-a O2 Difference 132.0 Hgb O2 Saturation 96.5 Liter Flow Vent Mode A/c Mechanical Rate 12 FiO2 50.0 Tidal Volume 500 PEEP 5 Sodium 138 Potassium 3.5 L Chloride 107 Carbon Dioxide 23 Anion Gap 12 BUN 27 H Creatinine 1.7 H Est GFR ( Amer) 48 Est GFR (Non-Af Amer) 40 POC Glucose (mg/dL) Random Glucose 110 Serum Osmolality Calcium 7.5 L 08/22/16 06:39 WBC RBC Hgb Hct MCV MCH MCHC RDW Plt Count pCO2 pO2 HCO3 ABG pH ABG Total CO2 ABG O2 Saturation ABG O2 Content ABG Base Excess ABG Hemoglobin ABG Carboxyhemoglobin POC ABG HHb (Measured) ABG Methemoglobin ABG O2 Capacity Ezra Test A-a O2 Difference Hgb O2 Saturation Liter Flow Vent Mode Mechanical Rate FiO2 Tidal Volume PEEP Sodium Potassium Chloride Carbon Dioxide Anion Gap BUN Creatinine Est GFR ( Amer) Est GFR (Non-Af Amer) POC Glucose (mg/dL) 122 H Random Glucose Serum Osmolality Calcium Fingerstick Blood Sugar Results: 122 Critical Care Progress Note - Ventilator Checklist Head of Bed 30 Degrees: Yes Daily Sedation Vacation: Yes Daily Assessment of Readiness to Wean: Yes DVT Prophylaxis: Yes (scd, hold anticoagulants because of the intracranial hemmorage) - Vent Settings MODE:: PRVC TIDAL VOLUME:: 500 RESP RATE:: 12 FIO2:: 50 PEEP:: 5 - Extremities/Vascular Does the Patient have a Rosa Catheter?: Yes Does the Patient need a Rosa Catheter?: Yes - Prophylaxis GI Prophylaxis GI: PPI - Prophylaxis DVT Prophylaxis DVT: SCDs - Nutrition Nutrition: jevidity Assessment/Plan - Assessment and Plan (Free Text) Plan: Assessment: 71yo M. PMHx arthritis, iverticulosis, CVA, ETOH abuse, withdrawal seizures, CABG, CAD with stents, atrial fibrillation, HTN, dyslipidemia, PVD, CVA. p/w suspected withdrawal seizures, still drinking daily. Patient also has new stroke symptoms with left sided hemiparalysis 1) CVA w/ hemorrhagic conversion - Initial CT of head showed old CVA. MRI done yesterday showed large right parietal operculum hemorrhage by a rim of edema or possible ischemia. - Left sided hemiparalysis. Unable to follow commands today compared to yesterday - Pt poor surgical canidate as per neurosurg - NG Tube in place. Patient on Jevity, goal is 70. - Stop all anticoagulants. Do to the hemorrhagic conversion have stopped all anticoagulation. DDAVP and platelets were given for ASA reversal - Hold manitol until serum osmolarity drops below 320. - F/U serum osmolarity at 9 pm tonight and 4 am tomorrow morning and reassess manitol. - Elevate the bed to 45 degrees - Neurology and neurosurgery consult appreciated - Patient currently on a ventilator. FIO2 setting being changed from 50% to 40% - F/U with head CT to see the progression of the bleed. - F/U w/ am CMP, MG, Phos, Serum osmolarity,Phos, Troponin 2) Respiratory failure secondary to CVA - Respiratory alkalosis - Vent settings today RR: 12, TV:500, PEEP: 5, FIO2: 50. - Changing the FIO2 to 40 % today rest of the setting will be the same 3) Respiratory Alkalosis - Could be secondary to central cause vs increased right sided infiltrate on x ray compared to left side of the chest 4) Seizure episode most likely secondary to new CVA - Neurology on consult - CPK levels WNL today. No seizure like activity noted. - F/U w/ EEG - Thiamine, folic acid - Keppra for seizure prophylaxis. 5) Atrial Fibrilation w/ RVR ( Currently controlled) - On Metoprolol PO 12.5mg Q12 via OG tube - Hold cardizem - Echo shows impaired systolic function w/ EF of 35-40% - Continue monitoring heart rate 6) JONELLE - - Most likely prerenal - CPK:111 today - F/U with morning CMP 7) Suspected aspiration pneumonia Tmax of 102 on admission w/ coughing spells ( This morning temperature at 8 am 101 F.). Currently patient has not been noted to be coughing. No leucocytosis noted Dr. Rodriguez on board ID consult appreciated Continue Zosyn empirically Blood culture showed no growth X ray shows increased right sided infiltrates compared to the left - F/U with sputum culture 8) Hypokalemia - K+ : 3.5 - 20 ml KCL liquid ordered for patient today - F/U with morning CBC 9) Elevated troponin - Slowly trending down. Latest this morning was .54. - F/U w/ tomorrow morning troponin levels 10) Prophlaxis - DVT PX: Hold lovenox currently on SCD - GI PX: Protonix IV Full Code Patient was seen and discussed with ICU attending Dr. Holder <Trever Holder - Last Filed: 08/22/16 16:23> Assessment/Plan - Assessment and Plan (Free Text) Plan: Attestation: Patient seen and examined at the bedside with Resident Dr. Kalani Fernandez; and I agree with his outline of plans and management as documented and discussed on AM rounds reflecting my review of all applicable clinical data, and participation in the care of the patient throughout the day in ICU; today, August 22, 2016.
[2016-08-22] MEDS ORDERED: Sodium Chloride 3% for Inhalation 4 ML VIAL.NEB IH PRN (08:39)
[2016-08-22] MEDS: Metoprolol 1 mg/ml Inj IVP SCH (09:17)
[2016-08-22] MEDS ORDERED: Potassium Chloride 20 mEq/15 ml LIQ UD PO ONE (10:00)
[2016-08-22 10:07] LABS: TROPONIN I 0.544 ng/mL (0.00-0.120)
--- NOTE | 2016-08-22 10:26 | RAD ---
HISTORY: s/p intubation COMPARISON: 08/19/2016 FINDINGS: The endotracheal tube terminates 3.5 cm proximal to the hollie. The nasogastric tube terminates in the stomach. LUNGS: There is interval development of airspace disease in the right upper lobe. The left lung is clear. PLEURA: No significant pleural effusion identified, no pneumothorax apparent. CARDIOVASCULAR: The cardiomediastinal silhouette is stable. Status post median sternotomy. OSSEOUS STRUCTURES: No significant abnormalities. VISUALIZED UPPER ABDOMEN: Normal. OTHER FINDINGS: None. IMPRESSION: Interval development of airspace disease in the right upper lobe most likely lobar pneumonia. Follow-up to resolution is advised.
--- NOTE | 2016-08-22 10:38 | RAD ---
HISTORY: s/p intubation COMPARISON: 08/21/2016 FINDINGS: The endotracheal tube terminates 3.0 cm proximal to the hollie. The nasogastric tube terminates in the stomach. LUNGS: The lungs are well inflated and clear. PLEURA: No significant pleural effusion identified, no pneumothorax apparent. CARDIOVASCULAR: Normal. OSSEOUS STRUCTURES: No significant abnormalities. VISUALIZED UPPER ABDOMEN: Normal. OTHER FINDINGS: None. IMPRESSION: Endotracheal tube terminates 3.0 cm proximal to the hollie. No acute findings.
--- NOTE | 2016-08-22 11:19 | CP.PCM.PN ---
Subjective - Date & Time of Evaluation Date of Evaluation: 08/22/16 Time of Evaluation: 11:18 - Subjective Subjective: remains sedated DANIELLE moving right semi purposfully plt up to [address] pening Objective - Vital Signs/Intake and Output Vital Signs (last 24 hours): Temp Pulse Resp BP Pulse Ox 101 F H 86 24 129/75 100 08/22/16 08:00 08/22/16 11:00 08/22/16 11:00 08/22/16 11:00 08/22/16 11:00 Intake and Output: 08/22/16 08/22/16 06:59 18:59 Intake Total 1916 563 Output Total 1450 Balance 466 563 - Medications Medications: Current Medications Atorvastatin Calcium (Lipitor) 40 mg PO DAILY [facility] Last Admin: 08/22/16 08:22 Dose: 40 mg Enalapril Maleate (Vasotec) 2.5 mg PO DAILY [facility] Last Admin: 08/22/16 08:22 Dose: 2.5 mg Folic Acid (Folic Acid) 1 mg PO DAILY [facility] Last Admin: 08/22/16 08:22 Dose: 1 mg Piperacillin Sod/Tazobactam (Sod 2.25 gm/ Sodium Chloride) 100 mls @ 100 mls/ hr IVPB Q6 ROBERT Last Admin: 08/22/16 09:09 Dose: 100 mls/hr Levetiracetam 500 mg/ Sodium (Chloride) 105 mls @ 210 mls/hr IVPB Q12 ROBERT Last Admin: 08/22/16 08:24 Dose: 210 mls/hr Propofol (Diprivan) 1,000 mg in 100 mls @ 2.858 mls/hr IV .Q24H ROBERT; 5 MCG/KG/ MIN PRN Reason: Protocol Stop: 08/22/16 19:04 Last Admin: 08/21/16 20:30 Dose: 5 mcg/kg/min, 2.858 mls/hr Metoprolol Tartrate (Lopressor) 12.5 mg PO Q12 [facility] Pantoprazole Sodium (Protonix Susp) 40 mg GT DAILY [facility] Thiamine HCl (Vitamin B1 Tab) 100 mg PO DAILY [facility] Last Admin: 08/22/16 08:22 Dose: 100 mg - Labs Labs: 08/22/16 04:20 08/22/16 04:20 PT 10.8 Seconds (9.8-13.1) 08/19/16 18:00 INR 1.0 (0.9-1.2) 08/19/16 18:00 APTT 22.9 Seconds (25.6-37.1) L 08/19/16 18:00
[2016-08-22] MEDS: Acetaminophen 650mg/20.3ml solution UD PO PRN ×2 (13:17→23:45)
--- NOTE | 2016-08-22 14:11 | CP.PCM.PN ---
Subjective - Date & Time of Evaluation Date of Evaluation: 08/22/16 Time of Evaluation: 14:11 - Subjective Subjective: ID Note- pt. lethargic s/p hemorragic stroke febrile today. Objective - Vital Signs/Intake and Output Vital Signs (last 24 hours): Temp Pulse Resp BP Pulse Ox 101.6 F H 93 H 20 117/78 99 08/22/16 13:17 08/22/16 14:00 08/22/16 14:00 08/22/16 14:00 08/22/16 14:00 Intake and Output: 08/22/16 08/22/16 06:59 18:59 Intake Total 1916 853 Output Total 1450 1000 Balance 466 -147 - Medications Medications: Current Medications Acetaminophen (Tylenol 650mg/20.3ml Solution Ud) 650 mg PO Q6 PRN PRN Reason: Temperature Last Admin: 08/22/16 13:17 Dose: 650 mg Atorvastatin Calcium (Lipitor) 40 mg PO DAILY [facility] Last Admin: 08/22/16 08:22 Dose: 40 mg Enalapril Maleate (Vasotec) 2.5 mg PO DAILY [facility] Last Admin: 08/22/16 08:22 Dose: 2.5 mg Folic Acid (Folic Acid) 1 mg PO DAILY [facility] Last Admin: 08/22/16 08:22 Dose: 1 mg Piperacillin Sod/Tazobactam (Sod 2.25 gm/ Sodium Chloride) 100 mls @ 100 mls/ hr IVPB Q6 [facility] Last Admin: 08/22/16 09:09 Dose: 100 mls/hr Levetiracetam 500 mg/ Sodium (Chloride) 105 mls @ 210 mls/hr IVPB Q12 [facility] Last Admin: 08/22/16 08:24 Dose: 210 mls/hr Propofol (Diprivan) 1,000 mg in 100 mls @ 2.858 mls/hr IV .Q24H ROBERT; 5 MCG/KG/ MIN PRN Reason: Protocol Stop: 08/22/16 19:04 Last Admin: 08/21/16 20:30 Dose: 5 mcg/kg/min, 2.858 mls/hr Metoprolol Tartrate (Lopressor) 12.5 mg PO Q12 [facility] Pantoprazole Sodium (Protonix Susp) 40 mg GT DAILY [facility] Thiamine HCl (Vitamin B1 Tab) 100 mg PO DAILY [facility] Last Admin: 08/22/16 08:22 Dose: 100 mg - Labs Labs: - Constitutional Appears: Other (lethargic) - ENT Exam Additional comments: Intubated - Respiratory Exam Additional comments: on the vent - Cardiovascular Exam Cardiovascular Exam: RRR, +S1, +S2 - GI/Abdominal Exam GI & Abdominal Exam: Soft, Normal Bowel Sounds Additional comments: Nt, ND - Extremities Exam Additional comments: no edema b/l LE - Neurological Exam Additional comments: lethargic, - Additional Findings Additional findings: Laboratory Results - last 72 hr 08/19/16 08/19/16 08/19/16 18:00 19:57 19:57 WBC RBC Hgb Hct MCV MCH MCHC RDW Plt Count MPV Neut % (Auto) Lymph % (Auto) [place] % (Auto) Eos % (Auto) Baso % (Auto) Neut # Lymph # [place] # Eos # Baso # Neutrophils % (Manual) 81 H Lymphocytes % (Manual) 9 L Reactive Lymphs % 4 H Monocytes % (Manual) 6 Platelet Estimate Decreased L Plt Clumps, EDTA Present Large Platelets Present Giant Platelets Present Hypochromasia (manual) Slight Anisocytosis (manual) Slight Macrocytosis (manual) Slight Tear Drop Cells Slight pCO2 pO2 HCO3 ABG pH ABG Total CO2 ABG O2 Saturation ABG O2 Content ABG Base Excess ABG Hemoglobin ABG Carboxyhemoglobin POC ABG HHb (Measured) ABG Methemoglobin ABG O2 Capacity Ezra Test A-a O2 Difference Hgb O2 Saturation Liter Flow Vent Mode Mechanical Rate FiO2 Tidal Volume PEEP Sodium Potassium Chloride Carbon Dioxide Anion Gap BUN Creatinine Est GFR ( Amer) Est GFR (Non-Af Amer) POC Glucose (mg/dL) Random Glucose Hemoglobin A1c 5.2 Serum Osmolality Calcium Magnesium Total Bilirubin AST ALT Alkaline Phosphatase Total Creatine Kinase Troponin I Total Protein Albumin Globulin Albumin/Globulin Ratio Homocysteine Procalcitonin Prolactin 34.6 H RPR Blood Type Blood Type Confirm Antibody Screen BBK History Checked 08/19/16 08/19/16 08/20/16 19:57 20:00 01:02 WBC RBC Hgb Hct MCV MCH MCHC RDW Plt Count MPV Neut % (Auto) Lymph % (Auto) [place] % (Auto) Eos % (Auto) Baso % (Auto) Neut # Lymph # [place] # Eos # Baso # Neutrophils % (Manual) Lymphocytes % (Manual) Reactive Lymphs % Monocytes % (Manual) Platelet Estimate Plt Clumps, EDTA Large Platelets Giant Platelets Hypochromasia (manual) Anisocytosis (manual) Macrocytosis (manual) Tear Drop Cells pCO2 pO2 HCO3 ABG pH ABG Total CO2 ABG O2 Saturation ABG O2 Content ABG Base Excess ABG Hemoglobin ABG Carboxyhemoglobin POC ABG HHb (Measured) ABG Methemoglobin ABG O2 Capacity Ezra Test A-a O2 Difference Hgb O2 Saturation Liter Flow Vent Mode Mechanical Rate FiO2 Tidal Volume PEEP Sodium Potassium Chloride Carbon Dioxide Anion Gap BUN Creatinine Est GFR ( Amer) Est GFR (Non-Af Amer) POC Glucose (mg/dL) 120 H Random Glucose Hemoglobin A1c Serum Osmolality Calcium Magnesium Total Bilirubin AST ALT Alkaline Phosphatase Total Creatine Kinase Troponin I Total Protein Albumin Globulin Albumin/Globulin Ratio Homocysteine 21.4 H Procalcitonin Prolactin RPR Nonreactive Blood Type Blood Type Confirm Antibody Screen BBK History Checked 08/20/16 08/20/16 08/20/16 04:25 04:25 06:27 WBC 10.7 RBC 3.37 L Hgb 11.8 L Hct 34.8 L MCV 103.3 H MCH 35.1 H MCHC 34.0 RDW 15.6 H Plt Count 81 L MPV 10.4 Neut % (Auto) 77.0 H Lymph % (Auto) 12.5 L [place] % (Auto) 10.0 Eos % (Auto) 0.1 Baso % (Auto) 0.4 Neut # 8.3 H Lymph # 1.3 [place] # 1.1 H Eos # 0.0 Baso # 0.0 Neutrophils % (Manual) Lymphocytes % (Manual) Reactive Lymphs % Monocytes % (Manual) Platelet Estimate Plt Clumps, EDTA Large Platelets Giant Platelets Hypochromasia (manual) Anisocytosis (manual) Macrocytosis (manual) Tear Drop Cells pCO2 pO2 HCO3 ABG pH ABG Total CO2 ABG O2 Saturation ABG O2 Content ABG Base Excess ABG Hemoglobin ABG Carboxyhemoglobin POC ABG HHb (Measured) ABG Methemoglobin ABG O2 Capacity Ezra Test A-a O2 Difference Hgb O2 Saturation Liter Flow Vent Mode Mechanical Rate FiO2 Tidal Volume PEEP Sodium 140 Potassium 3.0 L Chloride 102 Carbon Dioxide 29 Anion Gap 12 BUN 30 H Creatinine 1.6 H Est GFR ( Amer) 52 Est GFR (Non-Af Amer) 43 POC Glucose (mg/dL) 108 Random Glucose 103 Hemoglobin A1c Serum Osmolality Calcium 8.0 L Magnesium 1.9 Total Bilirubin 2.0 H AST 50 ALT 53 Alkaline Phosphatase 58 Total Creatine Kinase Troponin I 0.5920 H* Total Protein 6.6 Albumin 3.2 L Globulin 3.4 Albumin/Globulin Ratio 0.9 L Homocysteine Procalcitonin Prolactin RPR Blood Type Blood Type Confirm Antibody Screen BBK History Checked 08/20/16 08/20/16 08/20/16 11:13 14:38 17:15 WBC RBC Hgb Hct MCV MCH MCHC RDW Plt Count MPV Neut % (Auto) Lymph % (Auto) [place] % (Auto) Eos % (Auto) Baso % (Auto) Neut # Lymph # [place] # Eos # Baso # Neutrophils % (Manual) Lymphocytes % (Manual) Reactive Lymphs % Monocytes % (Manual) Platelet Estimate Plt Clumps, EDTA Large Platelets Giant Platelets Hypochromasia (manual) Anisocytosis (manual) Macrocytosis (manual) Tear Drop Cells pCO2 pO2 HCO3 ABG pH ABG Total CO2 ABG O2 Saturation ABG O2 Content ABG Base Excess ABG Hemoglobin ABG Carboxyhemoglobin POC ABG HHb (Measured) ABG Methemoglobin ABG O2 Capacity Ezra Test A-a O2 Difference Hgb O2 Saturation Liter Flow Vent Mode Mechanical Rate FiO2 Tidal Volume PEEP Sodium Potassium Chloride Carbon Dioxide Anion Gap BUN Creatinine Est GFR ( Amer) Est GFR (Non-Af Amer) POC Glucose (mg/dL) 153 H 131 H Random Glucose Hemoglobin A1c Serum Osmolality Calcium Magnesium Total Bilirubin AST ALT Alkaline Phosphatase Total Creatine Kinase Troponin I Total Protein Albumin Globulin Albumin/Globulin Ratio Homocysteine Procalcitonin 0.09 L Prolactin RPR Blood Type Blood Type Confirm Antibody Screen BBK History Checked 08/20/16 08/20/16 08/20/16 20:27 20:32 21:58 WBC RBC Hgb Hct MCV MCH MCHC RDW Plt Count MPV Neut % (Auto) Lymph % (Auto) [place] % (Auto) Eos % (Auto) Baso % (Auto) Neut # Lymph # [place] # Eos # Baso # Neutrophils % (Manual) Lymphocytes % (Manual) Reactive Lymphs % Monocytes % (Manual) Platelet Estimate Plt Clumps, EDTA Large Platelets Giant Platelets Hypochromasia (manual) Anisocytosis (manual) Macrocytosis (manual) Tear Drop Cells pCO2 pO2 HCO3 ABG pH ABG Total CO2 ABG O2 Saturation ABG O2 Content ABG Base Excess ABG Hemoglobin ABG Carboxyhemoglobin POC ABG HHb (Measured) ABG Methemoglobin ABG O2 Capacity Ezra Test A-a O2 Difference Hgb O2 Saturation Liter Flow Vent Mode Mechanical Rate FiO2 Tidal Volume PEEP Sodium Potassium Chloride Carbon Dioxide Anion Gap BUN Creatinine Est GFR ( Amer) Est GFR (Non-Af Amer) POC Glucose (mg/dL) 115 H Random Glucose Hemoglobin A1c Serum Osmolality Calcium Magnesium Total Bilirubin AST ALT Alkaline Phosphatase Total Creatine Kinase Troponin I Total Protein Albumin Globulin Albumin/Globulin Ratio Homocysteine Procalcitonin Prolactin RPR Blood Type A POSITIVE Blood Type Confirm A POSITIVE Antibody Screen Negative BBK History Checked No verified bt 08/21/16 08/21/16 08/21/16 04:20 04:20 05:52 WBC 9.4 RBC 3.16 L Hgb 11.0 L Hct 32.7 L MCV 103.7 H MCH 34.9 H MCHC 33.6 RDW 15.6 H Plt Count 83 L MPV 10.8 Neut % (Auto) 74.4 Lymph % (Auto) 10.1 L [place] % (Auto) 15.2 H Eos % (Auto) 0.0 Baso % (Auto) 0.3 Neut # 7.0 Lymph # 0.9 L [place] # 1.4 H Eos # 0.0 Baso # 0.0 Neutrophils % (Manual) Lymphocytes % (Manual) Reactive Lymphs % Monocytes % (Manual) Platelet Estimate Plt Clumps, EDTA Large Platelets Giant Platelets Hypochromasia (manual) Anisocytosis (manual) Macrocytosis (manual) Tear Drop Cells pCO2 pO2 HCO3 ABG pH ABG Total CO2 ABG O2 Saturation ABG O2 Content ABG Base Excess ABG Hemoglobin ABG Carboxyhemoglobin POC ABG HHb (Measured) ABG Methemoglobin ABG O2 Capacity Ezra Test A-a O2 Difference Hgb O2 Saturation Liter Flow Vent Mode Mechanical Rate FiO2 Tidal Volume PEEP Sodium 138 Potassium 3.5 L Chloride 107 Carbon Dioxide 24 Anion Gap 11 BUN 24 H Creatinine 1.3 Est GFR ( Amer) > 60 Est GFR (Non-Af Amer) 55 POC Glucose (mg/dL) 98 Random Glucose 99 Hemoglobin A1c Serum Osmolality Calcium 7.8 L Magnesium Total Bilirubin 2.1 H AST 46 ALT 48 Alkaline Phosphatase 54 Total Creatine Kinase Troponin I 0.5790 H* Total Protein 6.8 Albumin 3.2 L Globulin 3.5 Albumin/Globulin Ratio 0.9 L Homocysteine Procalcitonin Prolactin RPR Blood Type Blood Type Confirm Antibody Screen BBK History Checked 08/21/16 08/21/16 08/21/16 11:13 16:10 18:18 WBC RBC Hgb Hct MCV MCH MCHC RDW Plt Count MPV Neut % (Auto) Lymph % (Auto) [place] % (Auto) Eos % (Auto) Baso % (Auto) Neut # Lymph # [place] # Eos # Baso # Neutrophils % (Manual) Lymphocytes % (Manual) Reactive Lymphs % Monocytes % (Manual) Platelet Estimate Plt Clumps, EDTA Large Platelets Giant Platelets Hypochromasia (manual) Anisocytosis (manual) Macrocytosis (manual) Tear Drop Cells pCO2 23 L pO2 58 L HCO3 26.4 ABG pH 7.60 H ABG Total CO2 23.3 ABG O2 Saturation 96.6 ABG O2 Content 13.5 L ABG Base Excess 2.0 ABG Hemoglobin 10.3 L ABG Carboxyhemoglobin 2.1 H POC ABG HHb (Measured) 3.3 ABG Methemoglobin 1.4 ABG O2 Capacity 14.0 L Ezra Test Yes A-a O2 Difference 141.0 Hgb O2 Saturation 93.2 L Liter Flow 3 Vent Mode Nc Mechanical Rate FiO2 32.0 Tidal Volume PEEP Sodium Potassium Chloride Carbon Dioxide Anion Gap BUN Creatinine Est GFR ( Amer) Est GFR (Non-Af Amer) POC Glucose (mg/dL) 120 H 134 H Random Glucose Hemoglobin A1c Serum Osmolality Calcium Magnesium Total Bilirubin AST ALT Alkaline Phosphatase Total Creatine Kinase Troponin I Total Protein Albumin Globulin Albumin/Globulin Ratio Homocysteine Procalcitonin Prolactin RPR Blood Type Blood Type Confirm Antibody Screen BBK History Checked 08/21/16 08/21/16 08/21/16 20:00 20:15 22:47 WBC RBC Hgb Hct MCV MCH MCHC RDW Plt Count MPV Neut % (Auto) Lymph % (Auto) [place] % (Auto) Eos % (Auto) Baso % (Auto) Neut # Lymph # [place] # Eos # Baso # Neutrophils % (Manual) Lymphocytes % (Manual) Reactive Lymphs % Monocytes % (Manual) Platelet Estimate Plt Clumps, EDTA Large Platelets Giant Platelets Hypochromasia (manual) Anisocytosis (manual) Macrocytosis (manual) Tear Drop Cells pCO2 26 L pO2 173 H HCO3 26.3 ABG pH 7.56 H ABG Total CO2 24.1 ABG O2 Saturation 99.2 H ABG O2 Content 14.7 L ABG Base Excess 1.8 ABG Hemoglobin 10.6 L ABG Carboxyhemoglobin 1.6 H POC ABG HHb (Measured) 0.8 ABG Methemoglobin 1.4 ABG O2 Capacity 14.8 L Ezra Test Yes A-a O2 Difference 151.0 Hgb O2 Saturation 96.3 Liter Flow Vent Mode Prvc/ac Mechanical Rate 12 FiO2 50.0 Tidal Volume 500 PEEP 5 Sodium Potassium Chloride Carbon Dioxide Anion Gap BUN Creatinine Est GFR ( Amer) Est GFR (Non-Af Amer) POC Glucose (mg/dL) 135 H Random Glucose Hemoglobin A1c Serum Osmolality 315 H Calcium Magnesium Total Bilirubin AST ALT Alkaline Phosphatase Total Creatine Kinase Troponin I Total Protein Albumin Globulin Albumin/Globulin Ratio Homocysteine Procalcitonin Prolactin RPR Blood Type Blood Type Confirm Antibody Screen BBK History Checked 08/22/16 08/22/16 08/22/16 04:20 04:20 05:38 WBC 9.0 RBC 2.93 L Hgb 10.3 L Hct 31.0 L MCV 106.0 H D MCH 35.3 H MCHC 33.3 RDW 16.1 H Plt Count 99 L MPV Neut % (Auto) Lymph % (Auto) [place] % (Auto) Eos % (Auto) Baso % (Auto) Neut # Lymph # [place] # Eos # Baso # Neutrophils % (Manual) Lymphocytes % (Manual) Reactive Lymphs % Monocytes % (Manual) Platelet Estimate Plt Clumps, EDTA Large Platelets Giant Platelets Hypochromasia (manual) Anisocytosis (manual) Macrocytosis (manual) Tear Drop Cells pCO2 31 L pO2 186 H HCO3 26.0 ABG pH 7.50 H ABG Total CO2 25.2 ABG O2 Saturation 99.2 H ABG O2 Content 14.7 L ABG Base Excess 1.4 ABG Hemoglobin 10.5 L ABG Carboxyhemoglobin 1.1 POC ABG HHb (Measured) 0.8 ABG Methemoglobin 1.5 ABG O2 Capacity 14.8 L Ezra Test Yes A-a O2 Difference 132.0 Hgb O2 Saturation 96.5 Liter Flow Vent Mode A/c Mechanical Rate 12 FiO2 50.0 Tidal Volume 500 PEEP 5 Sodium 138 Potassium 3.5 L Chloride 107 Carbon Dioxide 23 Anion Gap 12 BUN 27 H Creatinine 1.7 H Est GFR ( Amer) 48 Est GFR (Non-Af Amer) 40 POC Glucose (mg/dL) Random Glucose 110 Hemoglobin A1c Serum Osmolality Calcium 7.5 L Magnesium Total Bilirubin AST ALT Alkaline Phosphatase Total Creatine Kinase Troponin I Total Protein Albumin Globulin Albumin/Globulin Ratio Homocysteine Procalcitonin Prolactin RPR Blood Type Blood Type Confirm Antibody Screen BBK History Checked 08/22/16 08/22/16 08/22/16 06:39 08:15 09:10 WBC RBC Hgb Hct MCV MCH MCHC RDW Plt Count MPV Neut % (Auto) Lymph % (Auto) [place] % (Auto) Eos % (Auto) Baso % (Auto) Neut # Lymph # [place] # Eos # Baso # Neutrophils % (Manual) Lymphocytes % (Manual) Reactive Lymphs % Monocytes % (Manual) Platelet Estimate Plt Clumps, EDTA Large Platelets Giant Platelets Hypochromasia (manual) Anisocytosis (manual) Macrocytosis (manual) Tear Drop Cells pCO2 pO2 HCO3 ABG pH ABG Total CO2 ABG O2 Saturation ABG O2 Content ABG Base Excess ABG Hemoglobin ABG Carboxyhemoglobin POC ABG HHb (Measured) ABG Methemoglobin ABG O2 Capacity Ezra Test A-a O2 Difference Hgb O2 Saturation Liter Flow Vent Mode Mechanical Rate FiO2 Tidal Volume PEEP Sodium Potassium Chloride Carbon Dioxide Anion Gap BUN Creatinine Est GFR ( Amer) Est GFR (Non-Af Amer) POC Glucose (mg/dL) 122 H Random Glucose Hemoglobin A1c Serum Osmolality 332 H Calcium Magnesium Total Bilirubin AST ALT Alkaline Phosphatase Total Creatine Kinase 111 Troponin I 0.5440 H* Total Protein Albumin Globulin Albumin/Globulin Ratio Homocysteine Procalcitonin Prolactin RPR Blood Type Blood Type Confirm Antibody Screen BBK History Checked 08/22/16 08/22/16 09:10 20:30 WBC RBC Hgb Hct MCV MCH MCHC RDW Plt Count MPV Neut % (Auto) Lymph % (Auto) [place] % (Auto) Eos % (Auto) Baso % (Auto) Neut # Lymph # [place] # Eos # Baso # Neutrophils % (Manual) Lymphocytes % (Manual) Reactive Lymphs % Monocytes % (Manual) Platelet Estimate Plt Clumps, EDTA Large Platelets Giant Platelets Hypochromasia (manual) Anisocytosis (manual) Macrocytosis (manual) Tear Drop Cells pCO2 pO2 HCO3 ABG pH ABG Total CO2 ABG O2 Saturation ABG O2 Content ABG Base Excess ABG Hemoglobin ABG Carboxyhemoglobin POC ABG HHb (Measured) ABG Methemoglobin ABG O2 Capacity Ezra Test A-a O2 Difference Hgb O2 Saturation Liter Flow Vent Mode Mechanical Rate FiO2 Tidal Volume PEEP Sodium Potassium Chloride Carbon Dioxide Anion Gap BUN Creatinine Est GFR ( Amer) Est GFR (Non-Af Amer) POC Glucose (mg/dL) Random Glucose Hemoglobin A1c Serum Osmolality 321 H Calcium Magnesium Total Bilirubin AST ALT Alkaline Phosphatase Total Creatine Kinase Troponin I Total Protein Albumin Globulin Albumin/Globulin Ratio Homocysteine Procalcitonin 0.14 L Prolactin RPR Blood Type Blood Type Confirm Antibody Screen BBK History Checked Microbiology 08/22/16 09:56 Sputum Gram Stain - Final 08/19/16 18:30 Blood-Venous Blood Culture - Preliminary NO GROWTH AFTER 3 DAYS 08/19/16 18:20 Blood-Venous Blood Culture - Preliminary NO GROWTH AFTER 3 DAYS 08/20/16 14:38 Blood-Venous Blood Culture - Preliminary NO GROWTH AFTER 48 HOURS 08/20/16 09:45 Urine,Rosa Urine Culture - Final No Growth (<1,000 CFU/ML) 08/19/16 21:00 Naris MRSA Culture (Admit) - Final MRSA NOT DETECTED Accession No. : [id number] Patient Name / ID : RONALD CARDENAS / [id number] Exam Date : 08/20/2016 16:21:13 ( Approved ) Study Comment : Sex / Age : M / 71Y Creator : Nash Luis MD Dictator : Nash Luis MD Radiology Therapist : Drill Press Operator : Nash Luis MD Approver2 : Report Date : 08/20/2016 17:30:59 My Comment : PROCEDURE: MRI BRAIN WITHOUT CONTRAST HISTORY: STROKE COMPARISON: None. TECHNIQUE: Multiplanar, multisequence MR images of the brain were obtained without intravenous contrast enhancement. FINDINGS: HEMORRHAGE: The current study reveals a large acute hemorrhage within the right parietal operculum measures approximately 5.8 cm cc x 5.4 ap cm x 4.5 t cm . The hemorrhage is surrounded by a rim of prolonged T2 signal - restricted diffusion which could represent likely edema however early ischemia and/or necrotic brain tissue not completely excluded. The hemorrhage and its attendant surrounding edema exert mass effect with overlying sulcal effacement and compression of the right lateral ventricle. There is minimal shift of the septum pellucidum from right to left. Moderate to significant chronic white matter ischemic changes are again seen extending peripherally into the deep and subcortical white matter both cerebral hemispheres. In addition, there are scattered more discrete lacunar-type infarcts scattered about the deep and subcortical white matter as well as both basal nuclei and brainstem. Chronic left cerebellar infarct also noted DWI: As above BRAIN PARENCHYMA: Significant diffuse/confluent chronic white matter ischemic changes are again seen extending peripherally into the deep and subcortical white matter both cerebral hemispheres. In addition, there are scattered more discrete lacunar- type infarcts scattered about the deep and subcortical white matter as well as both basal nuclei and brainstem. Chronic left cerebellar infarct also noted. Moderate to fairly significant generalized Generalized volume loss VENTRICLES: No obstructive hydrocephalus CRANIUM: Unremarkable. ORBITS: The changes of bilateral cataract surgery. PARANASAL SINUSES/MASTOIDS: Clear VASCULAR SYSTEM: Visualized major vascular flow voids at skull base appear patent. OTHER FINDINGS: None. IMPRESSION: Large right parietal operculum hemorrhage surrounded by a rim of edema or possibly ischemia. Clinical correlation recommended. Extensive significant chronic white matter ischemic changes with multiple chronic lacunar-type infarcts scattered about the deep and subcortical white matter, both basal nuclei, brainstem and left cerebellum. Findings discussed with ICU Nurse Gomez at approximately 5:28 p.m. with written down and read back verification. Assessment and Plan (1) Seizure disorder Status: Acute (2) CVA (cerebral vascular accident) Status: Acute (3) CHF (congestive heart failure) Status: Acute (4) Atrial fibrillation with RVR Status: Acute - Assessment and Plan (Free Text) Assessment: A/p 71 year old amle with multiple medical conditions including CVA, seizure disorder, CAD, CHF abrenda was admitted for seizures and found to have high lactate and onbe temp of 102 in ED. pt. has clinically worsened and is lethargic and on vent febrile today most likey central fever, has normal wbc and all cx are negative normal procalcitonin level. 1. seizure 2. hemorragic CVA 3.Acutre renal insufficiency plan- No objection to continuing with the empiric zosyn that was already initiated by the primary team to cover for possible pneumonitis..( renal dose) seizure and Brain Hemorrhage management as per neurologist and neurosurgeon and ICU team. prognosis poor ICu time 45 min.
--- NOTE | 2016-08-22 18:31 | CP.PCM.PN ---
Subjective - Date & Time of Evaluation Date of Evaluation: 08/22/16 Time of Evaluation: 18:26 - Subjective Subjective: PT IS SEEN WITH HIS FAMILY AND EXTENDED DISCUSSION ON HIS CRITICAL ILLNESS OBTUNDED LEFT SIDE HEMIPLEGIC GRIMACING ON NOXIOUS STIMULI PUPIL REACTIVE CORNEAL PRESENT LEFT BABINSKI HEART AFIB 85 / MT PLAN: REPEAT CAT NO PROGRESSION NOTED - STILL OFFICIAL REPORT PENDING STILL SIGNS OF INC ICP NO SIGN OF HERNIATION AND POST MANNITOL KEPPRA FOR Sz PRECAUTION NOT A SURGICAL CANDIDATE REASONBLE TIME SPENT WITH HIM AND REVIEWED CAT > 45 MIN Objective - Vital Signs/Intake and Output Vital Signs (last 24 hours): Temp Pulse Resp BP Pulse Ox 101.8 F H 85 24 127/71 100 08/22/16 16:00 08/22/16 18:00 08/22/16 18:00 08/22/16 18:00 08/22/16 18:00 Intake and Output: 08/22/16 08/22/16 06:59 18:59 Intake Total 1916 1333 Output Total 1450 1300 Balance 466 33 - Medications Medications: Current Medications Acetaminophen (Tylenol 650mg/20.3ml Solution Ud) 650 mg PO Q6 PRN PRN Reason: Temperature Last Admin: 08/22/16 13:17 Dose: 650 mg Atorvastatin Calcium (Lipitor) 40 mg PO DAILY [facility] Last Admin: 08/22/16 08:22 Dose: 40 mg Enalapril Maleate (Vasotec) 2.5 mg PO DAILY [facility] Last Admin: 08/22/16 08:22 Dose: 2.5 mg Folic Acid (Folic Acid) 1 mg PO DAILY [facility] Last Admin: 08/22/16 08:22 Dose: 1 mg Piperacillin Sod/Tazobactam (Sod 2.25 gm/ Sodium Chloride) 100 mls @ 100 mls/ hr IVPB Q6 [facility] Last Admin: 08/22/16 15:34 Dose: 100 mls/hr Levetiracetam 500 mg/ Sodium (Chloride) 105 mls @ 210 mls/hr IVPB Q12 [facility] Last Admin: 08/22/16 08:24 Dose: 210 mls/hr Metoprolol Tartrate (Lopressor) 12.5 mg PO Q12 [facility] Pantoprazole Sodium (Protonix Susp) 40 mg GT DAILY [facility] Thiamine HCl (Vitamin B1 Tab) 100 mg PO DAILY [facility] Last Admin: 08/22/16 08:22 Dose: 100 mg - Labs Labs: 08/22/16 04:20 08/22/16 04:20 PT 10.8 Seconds (9.8-13.1) 08/19/16 18:00 INR 1.0 (0.9-1.2) 08/19/16 18:00 APTT 22.9 Seconds (25.6-37.1) L 08/19/16 18:00 Assessment and Plan (1) Alcohol abuse with alcohol-induced disorder Status: Acute
--- NOTE | 2016-08-22 18:54 | CT ---
PROCEDURE: CT HEAD WITHOUT CONTRAST. HISTORY: assess ICH COMPARISON: None available. TECHNIQUE: Axial computed tomography images were obtained through the head/brain without intravenous contrast. Radiation dose: Total exam DLP = 1851.39 mGy-cm. This CT exam was performed using one or more of the following dose reduction techniques: Automated exposure control, adjustment of the mA and/or kV according to patient size, and/or use of iterative reconstruction technique. FINDINGS: HEMORRHAGE: Stable parenchymal hemorrhage right parietal lobe. BRAIN: Stable but Halie and mass effect without interval change in midline shift less than 5 mm. . Stable cortical atrophy and periventricular small vessel disease. VENTRICLES: Stable effacement of ipsilateral, right lateral ventricle. CALVARIUM: Unremarkable. PARANASAL SINUSES: Unremarkable as visualized. No significant inflammatory changes. MASTOID AIR CELLS: Unremarkable as visualized. No inflammatory changes. OTHER FINDINGS: None. IMPRESSION: No significant interval change compared to the prior examination(s). Stable right parietal, intra-axial hemorrhage. Stable edema, mass effect and midline shift. No new abnormalities apparent on the present study.
[2016-08-23 05:24] LABS: ALBUMIN 3.2 g/dL (3.5-5.0); CALCIUM 8.2 mg/dL (8.4-10.2); MAGNESIUM 2.3 MG/DL (1.6-2.3)
[2016-08-23 05:25] LABS: MEAN CELL VOLUME 107.5 fl (80.0-94.0); MEAN CORPUSCULAR HEMOGLOBIN 34.8 pg (27.0-31.0); MEAN CORPUSCULAR HGB CONC 32.3 g/dL (33.0-37.0); RBC 3.15 Mil/uL (4.40-5.90); RED CELL DISTRIBUTION WIDTH 15.7 % (11.5-14.5); WHITE BLOOD COUNT 11.8 K/uL (4.8-10.8)
[2016-08-23 05:42] LABS: ALB/GLOB RATIO 0.8 (1.0-2.1)
[2016-08-23 05:44] LABS: TROPONIN I 0.417 ng/mL (0.00-0.120)
[2016-08-23 05:44] LABS: ABG ALLEN TEST YES; ARTERIAL BLOOD GAS HCO3 27.7 mmol/L (21-28); ARTERIAL BLOOD GAS HEMOGLOBIN 10.9 g/dL (11.7-17.4); ARTERIAL BLOOD GAS O2 CAPACITY 15.2 mL/dL (16-24); ARTERIAL BLOOD GAS O2 CONTENT 15.1 ML/dL (15-23); ARTERIAL BLOOD GAS O2 SAT 99.4 % (95-98); ARTERIAL BLOOD GAS PCO2 32 mm/Hg (35-45); ARTERIAL BLOOD GAS PH 7.52 (7.35-7.45); ARTERIAL BLOOD GAS PO2 135 mm/Hg (80-100); ARTERIAL BLOOD GAS TCO2 27.1 mmol/L (22-28)
[2016-08-23] MEDS: levETIRAcetam 500 MG in Sodium Chloride 0.9% 100 ML IVPB SCH ×2 (08:24→20:03)
[2016-08-23] MEDS: Pantoprazole 40 mg Susp UD GT SCH (08:25)
--- NOTE | 2016-08-23 09:08 | CP.PCM.PN ---
Subjective - Date & Time of Evaluation Date of Evaluation: 08/23/16 Time of Evaluation: 09:00 - Subjective Subjective: Febrile Remains Intubated on [facility] vent minimally responsive to pain Central line placed by Dr Holder Pt's daughter is deciding on terminal extubation Objective - Vital Signs/Intake and Output Vital Signs (last 24 hours): Temp Pulse Resp BP Pulse Ox 99.5 F 91 H 26 H 160/89 H 100 08/23/16 08:00 08/23/16 08:25 08/23/16 08:00 08/23/16 08:25 08/23/16 08:00 Intake and Output: 08/23/16 08/23/16 06:59 18:59 Intake Total 1070 Output Total 750 Balance 320 - Medications Medications: Current Medications Acetaminophen (Tylenol 650mg/20.3ml Solution Ud) 650 mg PO Q6 PRN PRN Reason: Temperature Last Admin: 08/22/16 23:45 Dose: 650 mg Atorvastatin Calcium (Lipitor) 40 mg PO DAILY [facility] Last Admin: 08/23/16 08:25 Dose: 40 mg Enalapril Maleate (Vasotec) 2.5 mg PO DAILY ROBERT Last Admin: 08/23/16 08:26 Dose: 2.5 mg Folic Acid (Folic Acid) 1 mg PO DAILY [facility] Last Admin: 08/23/16 08:23 Dose: 1 mg Piperacillin Sod/Tazobactam (Sod 2.25 gm/ Sodium Chloride) 100 mls @ 100 mls/ hr IVPB Q6 ROBERT Last Admin: 08/23/16 04:05 Dose: 100 mls/hr Levetiracetam 500 mg/ Sodium (Chloride) 105 mls @ 210 mls/hr IVPB Q12 ROBERT Last Admin: 08/23/16 08:24 Dose: 210 mls/hr Metoprolol Tartrate (Lopressor) 12.5 mg PO Q12 [facility] Last Admin: 08/23/16 08:25 Dose: 12.5 mg Pantoprazole Sodium (Protonix Susp) 40 mg GT DAILY [facility] Last Admin: 08/23/16 08:25 Dose: 40 mg Thiamine HCl (Vitamin B1 Tab) 100 mg PO DAILY [facility] Last Admin: 08/23/16 08:26 Dose: 100 mg - Labs Labs: 08/23/16 04:20 08/23/16 04:20 PT 10.8 Seconds (9.8-13.1) 08/19/16 18:00 INR 1.0 (0.9-1.2) 08/19/16 18:00 APTT 22.9 Seconds (25.6-37.1) L 08/19/16 18:00 - Constitutional Appears: Chronically Ill, Other (Intubated on Mech vent, unresponsive to painful stimuli) - Head Exam Head Exam: NORMOCEPHALIC - Eye Exam Additional comments: sluggishly reactive to light - ENT Exam ENT Exam: Mucous Membranes Dry, Normal External Ear Exam - Respiratory Exam Respiratory Exam: Rhonchi Additional comments: Inrubated on Vent - Cardiovascular Exam Cardiovascular Exam: Irregular Rhythm, +S1, +S2 - GI/Abdominal Exam GI & Abdominal Exam: Soft, Normal Bowel Sounds - Extremities Exam Extremities Exam: Pedal Edema - Neurological Exam Additional comments: unresponsive - Skin Skin Exam: Dry, Normal Color, Warm Assessment and Plan - Assessment and Plan (Free Text) Assessment: 71 years old male with hx of non compliance with medication, CVA, CAD s/p CABG, CHF, Alcohol abuse with intoxication, A Fib, and Seizure was brought from home to the ED because of 3 episodes of witnessed seizures. In the ED patient was found to be in A Fib with RVR, Temperature of 102F, Dysarthric, with left sided weakness and a NIHSS of 13. CT head in ER showed old CVA and no acute infarct or bleed. Neurology was consulted and patient started on ASA, Lovenox therapeutic , lipitor and cardizem drip for rate control. MRI of the brain performed 12 hours from presentation showed large right parietal area bleed. ASa , lovenox were held and Vitamin K and platelet ordered to reverse their effect. Neurology and neurosurgery informed. He was given 1 dose DDAVP , started on Mannitol drip and Keppra for seizure. At present , he is intubated for airway protection. 1. Intracranial Bleed minimally responsive to pain ,intubated on MV for airway protection initial CT head showed old CVA , no bleed no acute stroke MRI head showed :Large right parietal hemorrhage with edema Follow up CT [id number] 6.3 right parietal intraparenchymal hemorrhage , extensive edema with midline shift Neurology and neurosurgery on consult Patient is not a surgical candidate ASA and lovenox held Vitamin K , Platelet transfusion given DDAVP 1 dose was given as well as Mannitol to decrease the intra cerebral edema- on hold , restart if Osm less than 320 Patient intubated for airway protection Keep HOB elevated on Keppra for seizure prophylaxis 2. Seizure episodes most likely due to new CVA with some episodes of focal tremors to RUE MRI with large right parietal bleed Neurology consulted . Dr. Celestin started on Keppra for seizure ativan PRN Thiamine, folic acid , MVI 3. Suspected Aspiration Pneumonia Tmax 102 on admission with coughing spells that has been going on for months as per patient Consult Dr Rodriguez Psychology Clinician ID consult appreciated repeat CXR showed no infiltrate Continue Zosyn empirically blood and sputum cx with no growth 4. Suspected Sepsis-- less likely procalcitonin - normal Cultures with no growth repeat CXR showed no infiltrate Continue Zosyn lactic acid elevation most likely secondary to tissue hypoperfusion and seizure episodes consult with Dr Tello ID appreciated 5. A Fib with RVR now rate controlled Cardizem drip discontinued on Metoprolol IV no anticoagulation due to intracranial bleed cardiology consult with Dr James appreciated Echo showed LVH and decreased EF 35-40 % 6. Elevated Troponin probably related to Afib with RVR less likely NSTEMI cardiology consulted Echo showed EF 35-40 % Continue lopressor d/c ASA due to intracranial bleed 7. Chronic CHF systolic dysfunction Cardiology consulted EF 35 -40 % on Lopressor and enalapril 8. JONELLE Most likely prerenal Cr trending up to 2.0 Repeat BMP in AM 9. DM ruled out HbA1c 5.4 10. Chronic Thrombocytopenia Most likely related to ETOH abuse 11. Stress ulcer prophylaxis pantoprazole 12. DVT Prophylaxis SCD d/c lovenox 13. Hypokalemia replace with KCl 14. History of ETOH dependence / alcoholism ETOH levels < 10 started thiamine, Folic acid Ativan PRN for seizure 15. Feeding Jevity via NGT
--- NOTE | 2016-08-23 09:49 | CP.CCUPN ---
Addendum entered and electronically signed by Rachael Fernandez MD 08/23/16 13:19 : * GCS of 3 today E1/V1/M1. [facility] will be called today. Spoke to Mr. Meier daughter today at bedside. She understands that her fathers prognosis is poor, and is asked for her father to be made. DNR (Do not resuscitate). She is also considering terminal extubation. She states she will think about it and let us know what day to do the terminal extubation and comfort care. - Central line was placed by Dr. Holder in the right femoral vein. Original Note: <Rachael Fernandez - Last Filed: 08/23/16 12:33> CCU Subjective - Physician Review Subjective (Free Text): 71 YO M w. h/o CAD, Afib, had a right sided CVA w/ hemorrhagic conversion and has been progressing in size. - This morning patient is seen on the ventilator day 3, appears to be more lethargic then previous days. IS not following comands, is not reacting much to painful stimuli. Central line was placed at bedside today by Dr. Holder. Spoke with family yesterday at bedside. Daughter who is [employer] children's counselor, states the patient would not want to live, if it would compromise his life, and does not want him to undergo any invasive procedures. Mother who has baseline dementia was seen at bedside as well, who appeared tearful and has been explained everything about the patients condition. Vitals this mornin/89 HR: 77, Temperature of 99.5 Vent settings: RR:12, TV: 500, PEEP 5, FIO2: 40 08/23/16 12:21 CCU Objective - Vital Signs / Intake & Output Vital Signs (Last 4 hours): Vital Signs Temp Pulse Resp BP Pulse Ox 08/23/16 08:25 91 H 160/89 H 08/23/16 08:00 99.5 F 88 26 H 160/89 H 100 08/23/16 05:56 101.8 F H 93 H 26 H 134/90 100 Intake and Output (Last 8hrs): Intake & Output 08/22/16 08/23/16 08/23/16 22:59 06:59 14:59 Intake Total 740 740 Output Total 300 750 Balance 440 -10 Intake: Intake, Piggyback 100 100 Tube Feeding 490 590 Free Water Flush 150 50 Output: Urine 300 750 Urethral (Rosa) 300 750 - Physical Exam Head: Positive for: Atraumatic, Normocephalic Pupils: Positive for: PERRL Extroacular Muscles: Positive for: EOMI Mouth: Positive for: Dry Respiratory/Chest: Positive for: Clear to Auscultation, Good Air Exchange Cardiovascular: Positive for: Normal S1, S2, Irregular Rhythm. Negative for: Murmurs Abdomen: Positive for: Normal Bowel Sounds, Feeding Tubes (OG tube). Negative for: Tenderness, Distention, Rebound Upper Extremity: Positive for: NORMAL PULSES, Other (Pt is not resoponding to commands today. No resting tremmor seen). Negative for: Edema Neurological: Positive for: Other (He is not following comands, and is slightly responding to painful stimuli). Negative for: Speech Normal Skin: Positive for: Warm, Normal Color Psychiatric: Positive for: Lethargic, Other ( But unable to open eyes and is not responding to painful stimuli) - Medications Active Medications: Active Medications Generic Name Dose Route Start Last Admin Trade Name Freq PRN Reason Stop Dose Admin Acetaminophen 650 mg 08/22/16 13:07 08/22/16 23:45 Tylenol 650mg/20.3ml Solution Ud PO 650 mg Q6 PRN Administration Temperature Atorvastatin Calcium 40 mg 08/20/16 15:00 08/23/16 08:25 Lipitor PO 40 mg DAILY ROBERT Administration Enalapril Maleate 2.5 mg 08/21/16 16:30 08/23/16 08:26 Vasotec PO 2.5 mg DAILY ROBERT Administration Folic Acid 1 mg 08/21/16 09:00 08/23/16 08:23 Folic Acid PO 1 mg DAILY ROBERT Administration Piperacillin Sod/Tazobactam 100 mls @ 100 mls/hr 08/20/16 16:00 08/23/16 04: 05 Sod 2.25 gm/ Sodium Chloride IVPB 100 mls/hr Q6 ROBERT Administration Levetiracetam 500 mg/ Sodium 105 mls @ 210 mls/hr 08/20/16 21:00 08/23/16 08: 24 Chloride IVPB 210 mls/hr Q12 ROBERT Administration Metoprolol Tartrate 12.5 mg 08/22/16 21:00 08/23/16 08:25 Lopressor PO 12.5 mg Q12 ROBERT Administration Pantoprazole Sodium 40 mg 08/23/16 09:00 08/23/16 08:25 Protonix Susp GT 40 mg DAILY ROBERT Administration Thiamine HCl 100 mg 08/21/16 09:00 08/23/16 08:26 Vitamin B1 Tab PO 100 mg DAILY ROBERT Administration - Patient Studies Lab Studies: Microbiology Studies 08/22/16 09:56 Gram Stain - Final Sputum 08/20/16 14:38 Blood Culture - Preliminary Blood-Venous NO GROWTH AFTER 48 HOURS Lab Studies 08/23/16 08/23/16 08/23/16 Range/Units 06:05 05:36 04:20 WBC 11.8 H (4.8-10.8) K/uL RBC 3.15 L (4.40-5.90) Mil/uL Hgb 11.0 L (12.0-18.0) g/dL Hct 33.9 L (35.0-51.0) % MCV 107.5 H (80.0-94.0) fl MCH 34.8 H (27.0-31.0) pg MCHC 32.3 L (33.0-37.0) g/dL RDW 15.7 H (11.5-14.5) % Plt Count 102 L (130-400) K/uL pCO2 32 L (35-45) mm/Hg pO2 135 H (80-100) mm/Hg HCO3 27.7 (21-28) mmol/L ABG pH 7.52 H (7.35-7.45) ABG Total CO2 27.1 (22-28) mmol/L ABG O2 Saturation 99.4 H (95-98) % ABG O2 Content 15.1 (15-23) ML/dL ABG Base Excess 3.5 H (-2.0-3.0) mmol/L ABG Hemoglobin 10.9 L (11.7-17.4) g/dL ABG Carboxyhemoglobin 1.4 (0.5-1.5) % POC ABG HHb (Measured) 0.6 (0.0-5.0) % ABG Methemoglobin 1.4 (0.0-3.0) % ABG O2 Capacity 15.2 L (16-24) mL/dL Ezra Test Yes A-a O2 Difference 110.0 mm/Hg Hgb O2 Saturation 96.6 (95.0-98.0) % Vent Mode Prvc ac Mechanical Rate 12 FiO2 40.0 % Tidal Volume 500 PEEP 5 Sodium (132-148) mmol/l Potassium (3.6-5.0) MMOL/L Chloride (98-107) mmol/L Carbon Dioxide (22-30) mmol/L Anion Gap (10-20) BUN (9-20) mg/dl Creatinine (0.8-1.5) mg/dL Est GFR ( Amer) Est GFR (Non-Af Amer) POC Glucose (mg/dL) 141 H (65-110) mg/dL Random Glucose (75-110) mg/dL Serum Osmolality (272-300) mosm/kg Calcium (8.4-10.2) mg/dL Phosphorus (2.5-4.5) mg/dl Magnesium (1.6-2.3) MG/DL Total Bilirubin (0.2-1.3) mg/dl AST (17-59) U/L ALT (21-72) U/L Alkaline Phosphatase (38-126) U/L Troponin I (0.00-0.120) ng/mL Total Protein (6.3-8.2) G/DL Albumin (3.5-5.0) g/dL Globulin (2.2-3.9) gm/dL Albumin/Globulin Ratio (1.0-2.1) Procalcitonin (0.19-0.49) NG/ML 08/23/16 08/23/16 08/22/16 Range/Units 04:20 04:20 20:30 WBC (4.8-10.8) K/uL RBC (4.40-5.90) Mil/uL Hgb (12.0-18.0) g/dL Hct (35.0-51.0) % MCV (80.0-94.0) fl MCH (27.0-31.0) pg MCHC (33.0-37.0) g/dL RDW (11.5-14.5) % Plt Count (130-400) K/uL pCO2 (35-45) mm/Hg pO2 (80-100) mm/Hg HCO3 (21-28) mmol/L ABG pH (7.35-7.45) ABG Total CO2 (22-28) mmol/L ABG O2 Saturation (95-98) % ABG O2 Content (15-23) ML/dL ABG Base Excess (-2.0-3.0) mmol/L ABG Hemoglobin (11.7-17.4) g/dL ABG Carboxyhemoglobin (0.5-1.5) % POC ABG HHb (Measured) (0.0-5.0) % ABG Methemoglobin (0.0-3.0) % ABG O2 Capacity (16-24) mL/dL Ezra Test A-a O2 Difference mm/Hg Hgb O2 Saturation (95.0-98.0) % Vent Mode Mechanical Rate FiO2 % Tidal Volume PEEP Sodium 148 (132-148) mmol/l Potassium 3.8 (3.6-5.0) MMOL/L Chloride 114 H (98-107) mmol/L Carbon Dioxide 25 (22-30) mmol/L Anion Gap 13 (10-20) BUN 35 H (9-20) mg/dl Creatinine 2.0 H (0.8-1.5) mg/dL Est GFR ( Amer) 40 Est GFR (Non-Af Amer) 33 POC Glucose (mg/dL) (65-110) mg/dL Random Glucose 150 H (75-110) mg/dL Serum Osmolality 329 H 321 H (272-300) mosm/kg Calcium 8.2 L (8.4-10.2) mg/dL Phosphorus 4.2 (2.5-4.5) mg/dl Magnesium 2.3 (1.6-2.3) MG/DL Total Bilirubin 1.1 (0.2-1.3) mg/dl AST 50 (17-59) U/L ALT 53 (21-72) U/L Alkaline Phosphatase 69 (38-126) U/L Troponin I 0.4170 H* (0.00-0.120) ng/mL Total Protein 7.0 (6.3-8.2) G/DL Albumin 3.2 L (3.5-5.0) g/dL Globulin 3.8 (2.2-3.9) gm/dL Albumin/Globulin Ratio 0.8 L (1.0-2.1) Procalcitonin (0.19-0.49) NG/ML 08/22/16 08/22/16 Range/Units 09:10 09:10 WBC (4.8-10.8) K/uL RBC (4.40-5.90) Mil/uL Hgb (12.0-18.0) g/dL Hct (35.0-51.0) % MCV (80.0-94.0) fl MCH (27.0-31.0) pg MCHC (33.0-37.0) g/dL RDW (11.5-14.5) % Plt Count (130-400) K/uL pCO2 (35-45) mm/Hg pO2 (80-100) mm/Hg HCO3 (21-28) mmol/L ABG pH (7.35-7.45) ABG Total CO2 (22-28) mmol/L ABG O2 Saturation (95-98) % ABG O2 Content (15-23) ML/dL ABG Base Excess (-2.0-3.0) mmol/L ABG Hemoglobin (11.7-17.4) g/dL ABG Carboxyhemoglobin (0.5-1.5) % POC ABG HHb (Measured) (0.0-5.0) % ABG Methemoglobin (0.0-3.0) % ABG O2 Capacity (16-24) mL/dL Ezra Test A-a O2 Difference mm/Hg Hgb O2 Saturation (95.0-98.0) % Vent Mode Mechanical Rate FiO2 % Tidal Volume PEEP Sodium (132-148) mmol/l Potassium (3.6-5.0) MMOL/L Chloride (98-107) mmol/L Carbon Dioxide (22-30) mmol/L Anion Gap (10-20) BUN (9-20) mg/dl Creatinine (0.8-1.5) mg/dL Est GFR ( Amer) Est GFR (Non-Af Amer) POC Glucose (mg/dL) (65-110) mg/dL Random Glucose (75-110) mg/dL Serum Osmolality (272-300) mosm/kg Calcium (8.4-10.2) mg/dL Phosphorus (2.5-4.5) mg/dl Magnesium (1.6-2.3) MG/DL Total Bilirubin (0.2-1.3) mg/dl AST (17-59) U/L ALT (21-72) U/L Alkaline Phosphatase (38-126) U/L Troponin I 0.5440 H* (0.00-0.120) ng/mL Total Protein (6.3-8.2) G/DL Albumin (3.5-5.0) g/dL Globulin (2.2-3.9) gm/dL Albumin/Globulin Ratio (1.0-2.1) Procalcitonin 0.14 L (0.19-0.49) NG/ML Laboratory Results - last 24 hr 08/22/16 08/22/16 08/22/16 09:10 09:10 20:30 WBC RBC Hgb Hct MCV MCH MCHC RDW Plt Count pCO2 pO2 HCO3 ABG pH ABG Total CO2 ABG O2 Saturation ABG O2 Content ABG Base Excess ABG Hemoglobin ABG Carboxyhemoglobin POC ABG HHb (Measured) ABG Methemoglobin ABG O2 Capacity Ezra Test A-a O2 Difference Hgb O2 Saturation Vent Mode Mechanical Rate FiO2 Tidal Volume PEEP Sodium Potassium Chloride Carbon Dioxide Anion Gap BUN Creatinine Est GFR ( Amer) Est GFR (Non-Af Amer) POC Glucose (mg/dL) Random Glucose Serum Osmolality 321 H Calcium Phosphorus Magnesium Total Bilirubin AST ALT Alkaline Phosphatase Troponin I 0.5440 H* Total Protein Albumin Globulin Albumin/Globulin Ratio Procalcitonin 0.14 L 08/23/16 08/23/16 08/23/16 04:20 04:20 04:20 WBC 11.8 H RBC 3.15 L Hgb 11.0 L Hct 33.9 L MCV 107.5 H MCH 34.8 H MCHC 32.3 L RDW 15.7 H Plt Count 102 L pCO2 pO2 HCO3 ABG pH ABG Total CO2 ABG O2 Saturation ABG O2 Content ABG Base Excess ABG Hemoglobin ABG Carboxyhemoglobin POC ABG HHb (Measured) ABG Methemoglobin ABG O2 Capacity Ezra Test A-a O2 Difference Hgb O2 Saturation Vent Mode Mechanical Rate FiO2 Tidal Volume PEEP Sodium 148 Potassium 3.8 Chloride 114 H Carbon Dioxide 25 Anion Gap 13 BUN 35 H Creatinine 2.0 H Est GFR ( Amer) 40 Est GFR (Non-Af Amer) 33 POC Glucose (mg/dL) Random Glucose 150 H Serum Osmolality 329 H Calcium 8.2 L Phosphorus 4.2 Magnesium 2.3 Total Bilirubin 1.1 AST 50 ALT 53 Alkaline Phosphatase 69 Troponin I 0.4170 H* Total Protein 7.0 Albumin 3.2 L Globulin 3.8 Albumin/Globulin Ratio 0.8 L Procalcitonin 08/23/16 08/23/16 05:36 06:05 WBC RBC Hgb Hct MCV MCH MCHC RDW Plt Count pCO2 32 L pO2 135 H HCO3 27.7 ABG pH 7.52 H ABG Total CO2 27.1 ABG O2 Saturation 99.4 H ABG O2 Content 15.1 ABG Base Excess 3.5 H ABG Hemoglobin 10.9 L ABG Carboxyhemoglobin 1.4 POC ABG HHb (Measured) 0.6 ABG Methemoglobin 1.4 ABG O2 Capacity 15.2 L Ezra Test Yes A-a O2 Difference 110.0 Hgb O2 Saturation 96.6 Vent Mode Prvc ac Mechanical Rate 12 FiO2 40.0 Tidal Volume 500 PEEP 5 Sodium Potassium Chloride Carbon Dioxide Anion Gap BUN Creatinine Est GFR ( Amer) Est GFR (Non-Af Amer) POC Glucose (mg/dL) 141 H Random Glucose Serum Osmolality Calcium Phosphorus Magnesium Total Bilirubin AST ALT Alkaline Phosphatase Troponin I Total Protein Albumin Globulin Albumin/Globulin Ratio Procalcitonin Fingerstick Blood Sugar Results: 141 Assessment/Plan - Assessment and Plan (Free Text) Assessment: 71yo M. PMHx arthritis, diverticulosis, CVA, ETOH abuse, withdrawal seizures, CABG, CAD with stents, atrial fibrillation, HTN, dyslipidemia, PVD, CVA. p/w suspected withdrawal seizures, still drinking daily. Patient continues to have left sided hemiparalysis and is seen unable to follow any commands. 1) CVA w/ hemorrhagic conversion - Initial CT of head showed old CVA. MRI done yesterday showed large right parietal operculum hemorrhage by a rim of edema or possible ischemia. The CT scan from 08/22/16 did not show any progression of the bleed compared to the MRI. - Left sided hemiparalysis. Unable to follow commands today compared to yesterday - Pt poor surgical canidate as per neurosurg - NG Tube in place. Patient on Jevity. - Continue to hold all anticoagulants. Do to the hemorrhagic conversion have stopped all anticoagulation. DDAVP and platelets were given for ASA reversal - Holding manitol until serum osmolarity drops below 320. - F/U serum osmolarity and reassess manitol giving mannitol. - Keep bed elevated to 45 degrees - Neurology and neurosurgery consult appreciated - Patient currently on a ventilator. 2) Respiratory failure secondary to CVA - Respiratory alkalosis. PH: 7.52, Bicarb 27.7 - Vent settings today RR: 12, TV:500, PEEP: 5, FIO2: 40 3) Respiratory Alkalosis - Could be secondary to central cause vs increased right sided infiltrate on x ray compared to left side of the chest 4) Seizure episode most likely secondary to new CVA - Neurology on consult - CPK levels WNL No seizure like activity noted since admission - F/U w/ EEG results - Thiamine, folic acid - Keppra for seizure prophylaxis. 5) Atrial Fibrilation w/ RVR ( Currently controlled) - On Metoprolol PO 12.5mg Q12 via OG tube - Hold cardizem - Echo shows impaired systolic function w/ EF of 35-40% - Continue monitoring heart rate 6) JONELLE - - CPK:111 today - BUN 35 Creatinine 2 7) Suspected aspiration pneumonia Tmax of 102 on admission w/ coughing spells ( This morning temperature at 8 am 101 F.). Currently patient has not been noted to be coughing. WBC 11.8 Dr. Rodriguez on board ID consult appreciated Continue Zosyn empirically Blood culture showed no growth X ray shows increased right sided infiltrates compared to the left - F/U with sputum culture: Rare gram positive cocci seen in sputum , awaiting official read 8) Hypertensive - Today Blood pressure is noted to be 160/89 - Could be secondary to pain from stimulation. - Metoprolol 12.5 mg Q12 - Will reassess and increase dosage of medication if needed. Goal is to keep systolic below 140 9) Hypokalemia Resolved - K+ : 3.8 after supplementation 10) Elevated troponin - Slowly trending down. Latest this morning was .41. 11) Prophlaxis - DVT PX: Hold lovenox currently on SCD - GI PX: Protonix IV Patient was seen and discussed with ICU attending Dr. Holder <Trever Holder - Last Filed: 08/24/16 07:31> Assessment/Plan - Assessment and Plan (Free Text) Plan: Attestation: Patient seen and examined at the bedside with Resident Dr. Kalani Fernandez; and I agree with his outline of plans and management as documented and discussed on AM rounds reflecting my review of all applicable clinical data, and participation in the care of the patient throughout the day in ICU; on August 23, 2016.
--- NOTE | 2016-08-23 12:38 | RAD ---
HISTORY: Ventilator patient. Portable study erect technique 04:25. COMPARISON: Multiple serial examinations preceding the most recent study: August 22, 2016. FINDINGS: LUNGS: No active pulmonary disease. PLEURA: No significant pleural effusion identified, no pneumothorax apparent. CARDIOVASCULAR: No radiographic findings to suggest acute or significant cardiovascular disease. OSSEOUS STRUCTURES: No significant abnormalities. VISUALIZED UPPER ABDOMEN: Normal. OTHER FINDINGS: Stable position of support apparatus including endotracheal tube and nasogastric tube. IMPRESSION: No significant interval change compared to the prior examination(s).
--- NOTE | 2016-08-23 14:08 | CP.PCM.PN ---
Subjective - Date & Time of Evaluation Date of Evaluation: 08/23/16 Time of Evaluation: 14:08 - Subjective Subjective: ID Note- Pt. seen and examined today in ICU. Pt's family is at his bedside. pt. remains intubated and lethargic. as per nurse no new events except one loose stool this am. Objective - Vital Signs/Intake and Output Vital Signs (last 24 hours): Temp Pulse Resp BP Pulse Ox 101.4 F H 78 23 148/74 22 L 08/23/16 12:00 08/23/16 12:00 08/23/16 12:00 08/23/16 12:00 08/23/16 12:00 Intake and Output: 08/23/16 08/23/16 06:59 18:59 Intake Total 1070 420 Output Total 750 Balance 320 420 - Medications Medications: Current Medications Acetaminophen (Tylenol 650mg/20.3ml Solution Ud) 650 mg PO Q6 PRN PRN Reason: Temperature Last Admin: 08/22/16 23:45 Dose: 650 mg Atorvastatin Calcium (Lipitor) 40 mg PO DAILY [facility] Last Admin: 08/23/16 08:25 Dose: 40 mg Enalapril Maleate (Vasotec) 2.5 mg PO DAILY [facility] Last Admin: 08/23/16 08:26 Dose: 2.5 mg Folic Acid (Folic Acid) 1 mg PO DAILY [facility] Last Admin: 08/23/16 08:23 Dose: 1 mg Piperacillin Sod/Tazobactam (Sod 2.25 gm/ Sodium Chloride) 100 mls @ 100 mls/ hr IVPB Q6 [facility] Last Admin: 08/23/16 10:02 Dose: 100 mls/hr Levetiracetam 500 mg/ Sodium (Chloride) 105 mls @ 210 mls/hr IVPB Q12 [facility] Last Admin: 08/23/16 08:24 Dose: 210 mls/hr Metoprolol Tartrate (Lopressor) 12.5 mg PO Q12 [facility] Last Admin: 08/23/16 08:25 Dose: 12.5 mg Pantoprazole Sodium (Protonix Susp) 40 mg GT DAILY [facility] Last Admin: 08/23/16 08:25 Dose: 40 mg Thiamine HCl (Vitamin B1 Tab) 100 mg PO DAILY [facility] Last Admin: 08/23/16 08:26 Dose: 100 mg - Labs Labs: - Additional Findings Additional findings: - Constitutional Appears: Other (lethargic) - ENT Exam Additional comments: ET and NGT in place - Respiratory Exam Additional comments: on the vent - Cardiovascular Exam Cardiovascular Exam: RRR, +S1, +S2 - GI/Abdominal Exam GI & Abdominal Exam: Soft, Normal Bowel Sounds Additional comments: Nt, ND - Extremities Exam Additional comments: no edema b/l LE - Neurological Exam Additional comments: lethargic, nonresponsive Laboratory Results - last 72 hr 08/19/16 08/19/16 08/20/16 19:57 20:00 14:38 WBC RBC Hgb Hct MCV MCH MCHC RDW Plt Count MPV Neut % (Auto) Lymph % (Auto) [place] % (Auto) Eos % (Auto) Baso % (Auto) Neut # Lymph # [place] # Eos # Baso # pCO2 pO2 HCO3 ABG pH ABG Total CO2 ABG O2 Saturation ABG O2 Content ABG Base Excess ABG Hemoglobin ABG Carboxyhemoglobin POC ABG HHb (Measured) ABG Methemoglobin ABG O2 Capacity Ezra Test A-a O2 Difference Hgb O2 Saturation Liter Flow Vent Mode Mechanical Rate FiO2 Tidal Volume PEEP Sodium Potassium Chloride Carbon Dioxide Anion Gap BUN Creatinine Est GFR ( Amer) Est GFR (Non-Af Amer) POC Glucose (mg/dL) Random Glucose Serum Osmolality Calcium Phosphorus Magnesium Total Bilirubin AST ALT Alkaline Phosphatase Total Creatine Kinase Troponin I Total Protein Albumin Globulin Albumin/Globulin Ratio Homocysteine 21.4 H Procalcitonin 0.09 L RPR Nonreactive Blood Type Blood Type Confirm Antibody Screen BBK History Checked 08/20/16 08/20/16 08/20/16 17:15 20:27 20:32 WBC RBC Hgb Hct MCV MCH MCHC RDW Plt Count MPV Neut % (Auto) Lymph % (Auto) [place] % (Auto) Eos % (Auto) Baso % (Auto) Neut # Lymph # [place] # Eos # Baso # pCO2 pO2 HCO3 ABG pH ABG Total CO2 ABG O2 Saturation ABG O2 Content ABG Base Excess ABG Hemoglobin ABG Carboxyhemoglobin POC ABG HHb (Measured) ABG Methemoglobin ABG O2 Capacity Ezra Test A-a O2 Difference Hgb O2 Saturation Liter Flow Vent Mode Mechanical Rate FiO2 Tidal Volume PEEP Sodium Potassium Chloride Carbon Dioxide Anion Gap BUN Creatinine Est GFR ( Amer) Est GFR (Non-Af Amer) POC Glucose (mg/dL) 131 H Random Glucose Serum Osmolality Calcium Phosphorus Magnesium Total Bilirubin AST ALT Alkaline Phosphatase Total Creatine Kinase Troponin I Total Protein Albumin Globulin Albumin/Globulin Ratio Homocysteine Procalcitonin RPR Blood Type A POSITIVE Blood Type Confirm A POSITIVE Antibody Screen Negative BBK History Checked No verified bt 08/20/16 08/21/16 08/21/16 21:58 04:20 04:20 WBC 9.4 RBC 3.16 L Hgb 11.0 L Hct 32.7 L MCV 103.7 H MCH 34.9 H MCHC 33.6 RDW 15.6 H Plt Count 83 L MPV 10.8 Neut % (Auto) 74.4 Lymph % (Auto) 10.1 L [place] % (Auto) 15.2 H Eos % (Auto) 0.0 Baso % (Auto) 0.3 Neut # 7.0 Lymph # 0.9 L [place] # 1.4 H Eos # 0.0 Baso # 0.0 pCO2 pO2 HCO3 ABG pH ABG Total CO2 ABG O2 Saturation ABG O2 Content ABG Base Excess ABG Hemoglobin ABG Carboxyhemoglobin POC ABG HHb (Measured) ABG Methemoglobin ABG O2 Capacity Ezra Test A-a O2 Difference Hgb O2 Saturation Liter Flow Vent Mode Mechanical Rate FiO2 Tidal Volume PEEP Sodium 138 Potassium 3.5 L Chloride 107 Carbon Dioxide 24 Anion Gap 11 BUN 24 H Creatinine 1.3 Est GFR ( Amer) > 60 Est GFR (Non-Af Amer) 55 POC Glucose (mg/dL) 115 H Random Glucose 99 Serum Osmolality Calcium 7.8 L Phosphorus Magnesium Total Bilirubin 2.1 H AST 46 ALT 48 Alkaline Phosphatase 54 Total Creatine Kinase Troponin I 0.5790 H* Total Protein 6.8 Albumin 3.2 L Globulin 3.5 Albumin/Globulin Ratio 0.9 L Homocysteine Procalcitonin RPR Blood Type Blood Type Confirm Antibody Screen BBK History Checked 08/21/16 08/21/16 08/21/16 05:52 11:13 16:10 WBC RBC Hgb Hct MCV MCH MCHC RDW Plt Count MPV Neut % (Auto) Lymph % (Auto) [place] % (Auto) Eos % (Auto) Baso % (Auto) Neut # Lymph # [place] # Eos # Baso # pCO2 pO2 HCO3 ABG pH ABG Total CO2 ABG O2 Saturation ABG O2 Content ABG Base Excess ABG Hemoglobin ABG Carboxyhemoglobin POC ABG HHb (Measured) ABG Methemoglobin ABG O2 Capacity Ezra Test A-a O2 Difference Hgb O2 Saturation Liter Flow Vent Mode Mechanical Rate FiO2 Tidal Volume PEEP Sodium Potassium Chloride Carbon Dioxide Anion Gap BUN Creatinine Est GFR ( Amer) Est GFR (Non-Af Amer) POC Glucose (mg/dL) 98 120 H 134 H Random Glucose Serum Osmolality Calcium Phosphorus Magnesium Total Bilirubin AST ALT Alkaline Phosphatase Total Creatine Kinase Troponin I Total Protein Albumin Globulin Albumin/Globulin Ratio Homocysteine Procalcitonin RPR Blood Type Blood Type Confirm Antibody Screen BBK History Checked 08/21/16 08/21/16 08/21/16 18:18 20:00 20:15 WBC RBC Hgb Hct MCV MCH MCHC RDW Plt Count MPV Neut % (Auto) Lymph % (Auto) [place] % (Auto) Eos % (Auto) Baso % (Auto) Neut # Lymph # [place] # Eos # Baso # pCO2 23 L 26 L pO2 58 L 173 H HCO3 26.4 26.3 ABG pH 7.60 H 7.56 H ABG Total CO2 23.3 24.1 ABG O2 Saturation 96.6 99.2 H ABG O2 Content 13.5 L 14.7 L ABG Base Excess 2.0 1.8 ABG Hemoglobin 10.3 L 10.6 L ABG Carboxyhemoglobin 2.1 H 1.6 H POC ABG HHb (Measured) 3.3 0.8 ABG Methemoglobin 1.4 1.4 ABG O2 Capacity 14.0 L 14.8 L Ezra Test Yes Yes A-a O2 Difference 141.0 151.0 Hgb O2 Saturation 93.2 L 96.3 Liter Flow 3 Vent Mode Nc Prvc/ac Mechanical Rate 12 FiO2 32.0 50.0 Tidal Volume 500 PEEP 5 Sodium Potassium Chloride Carbon Dioxide Anion Gap BUN Creatinine Est GFR ( Amer) Est GFR (Non-Af Amer) POC Glucose (mg/dL) Random Glucose Serum Osmolality 315 H Calcium Phosphorus Magnesium Total Bilirubin AST ALT Alkaline Phosphatase Total Creatine Kinase Troponin I Total Protein Albumin Globulin Albumin/Globulin Ratio Homocysteine Procalcitonin RPR Blood Type Blood Type Confirm Antibody Screen BBK History Checked 08/21/16 08/22/16 08/22/16 22:47 04:20 04:20 WBC 9.0 RBC 2.93 L Hgb 10.3 L Hct 31.0 L MCV 106.0 H D MCH 35.3 H MCHC 33.3 RDW 16.1 H Plt Count 99 L MPV Neut % (Auto) Lymph % (Auto) [place] % (Auto) Eos % (Auto) Baso % (Auto) Neut # Lymph # [place] # Eos # Baso # pCO2 pO2 HCO3 ABG pH ABG Total CO2 ABG O2 Saturation ABG O2 Content ABG Base Excess ABG Hemoglobin ABG Carboxyhemoglobin POC ABG HHb (Measured) ABG Methemoglobin ABG O2 Capacity Ezra Test A-a O2 Difference Hgb O2 Saturation Liter Flow Vent Mode Mechanical Rate FiO2 Tidal Volume PEEP Sodium 138 Potassium 3.5 L Chloride 107 Carbon Dioxide 23 Anion Gap 12 BUN 27 H Creatinine 1.7 H Est GFR ( Amer) 48 Est GFR (Non-Af Amer) 40 POC Glucose (mg/dL) 135 H Random Glucose 110 Serum Osmolality Calcium 7.5 L Phosphorus Magnesium Total Bilirubin AST ALT Alkaline Phosphatase Total Creatine Kinase Troponin I Total Protein Albumin Globulin Albumin/Globulin Ratio Homocysteine Procalcitonin RPR Blood Type Blood Type Confirm Antibody Screen BBK History Checked 08/22/16 08/22/16 08/22/16 05:38 06:39 08:15 WBC RBC Hgb Hct MCV MCH MCHC RDW Plt Count MPV Neut % (Auto) Lymph % (Auto) [place] % (Auto) Eos % (Auto) Baso % (Auto) Neut # Lymph # [place] # Eos # Baso # pCO2 31 L pO2 186 H HCO3 26.0 ABG pH 7.50 H ABG Total CO2 25.2 ABG O2 Saturation 99.2 H ABG O2 Content 14.7 L ABG Base Excess 1.4 ABG Hemoglobin 10.5 L ABG Carboxyhemoglobin 1.1 POC ABG HHb (Measured) 0.8 ABG Methemoglobin 1.5 ABG O2 Capacity 14.8 L Ezra Test Yes A-a O2 Difference 132.0 Hgb O2 Saturation 96.5 Liter Flow Vent Mode A/c Mechanical Rate 12 FiO2 50.0 Tidal Volume 500 PEEP 5 Sodium Potassium Chloride Carbon Dioxide Anion Gap BUN Creatinine Est GFR ( Amer) Est GFR (Non-Af Amer) POC Glucose (mg/dL) 122 H Random Glucose Serum Osmolality 332 H Calcium Phosphorus Magnesium Total Bilirubin AST ALT Alkaline Phosphatase Total Creatine Kinase Troponin I Total Protein Albumin Globulin Albumin/Globulin Ratio Homocysteine Procalcitonin RPR Blood Type Blood Type Confirm Antibody Screen BBK History Checked 08/22/16 08/22/16 08/22/16 09:10 09:10 20:30 WBC RBC Hgb Hct MCV MCH MCHC RDW Plt Count MPV Neut % (Auto) Lymph % (Auto) [place] % (Auto) Eos % (Auto) Baso % (Auto) Neut # Lymph # [place] # Eos # Baso # pCO2 pO2 HCO3 ABG pH ABG Total CO2 ABG O2 Saturation ABG O2 Content ABG Base Excess ABG Hemoglobin ABG Carboxyhemoglobin POC ABG HHb (Measured) ABG Methemoglobin ABG O2 Capacity Ezra Test A-a O2 Difference Hgb O2 Saturation Liter Flow Vent Mode Mechanical Rate FiO2 Tidal Volume PEEP Sodium Potassium Chloride Carbon Dioxide Anion Gap BUN Creatinine Est GFR ( Amer) Est GFR (Non-Af Amer) POC Glucose (mg/dL) Random Glucose Serum Osmolality 321 H Calcium Phosphorus Magnesium Total Bilirubin AST ALT Alkaline Phosphatase Total Creatine Kinase 111 Troponin I 0.5440 H* Total Protein Albumin Globulin Albumin/Globulin Ratio Homocysteine Procalcitonin 0.14 L RPR Blood Type Blood Type Confirm Antibody Screen BBK History Checked 08/23/16 08/23/16 08/23/16 04:20 04:20 04:20 WBC 11.8 H RBC 3.15 L Hgb 11.0 L Hct 33.9 L MCV 107.5 H MCH 34.8 H MCHC 32.3 L RDW 15.7 H Plt Count 102 L MPV Neut % (Auto) Lymph % (Auto) [place] % (Auto) Eos % (Auto) Baso % (Auto) Neut # Lymph # [place] # Eos # Baso # pCO2 pO2 HCO3 ABG pH ABG Total CO2 ABG O2 Saturation ABG O2 Content ABG Base Excess ABG Hemoglobin ABG Carboxyhemoglobin POC ABG HHb (Measured) ABG Methemoglobin ABG O2 Capacity Ezra Test A-a O2 Difference Hgb O2 Saturation Liter Flow Vent Mode Mechanical Rate FiO2 Tidal Volume PEEP Sodium 148 Potassium 3.8 Chloride 114 H Carbon Dioxide 25 Anion Gap 13 BUN 35 H Creatinine 2.0 H Est GFR ( Amer) 40 Est GFR (Non-Af Amer) 33 POC Glucose (mg/dL) Random Glucose 150 H Serum Osmolality 329 H Calcium 8.2 L Phosphorus 4.2 Magnesium 2.3 Total Bilirubin 1.1 AST 50 ALT 53 Alkaline Phosphatase 69 Total Creatine Kinase Troponin I 0.4170 H* Total Protein 7.0 Albumin 3.2 L Globulin 3.8 Albumin/Globulin Ratio 0.8 L Homocysteine Procalcitonin RPR Blood Type Blood Type Confirm Antibody Screen BBK History Checked 08/23/16 08/23/16 05:36 06:05 WBC RBC Hgb Hct MCV MCH MCHC RDW Plt Count MPV Neut % (Auto) Lymph % (Auto) [place] % (Auto) Eos % (Auto) Baso % (Auto) Neut # Lymph # [place] # Eos # Baso # pCO2 32 L pO2 135 H HCO3 27.7 ABG pH 7.52 H ABG Total CO2 27.1 ABG O2 Saturation 99.4 H ABG O2 Content 15.1 ABG Base Excess 3.5 H ABG Hemoglobin 10.9 L ABG Carboxyhemoglobin 1.4 POC ABG HHb (Measured) 0.6 ABG Methemoglobin 1.4 ABG O2 Capacity 15.2 L Ezra Test Yes A-a O2 Difference 110.0 Hgb O2 Saturation 96.6 Liter Flow Vent Mode Prvc ac Mechanical Rate 12 FiO2 40.0 Tidal Volume 500 PEEP 5 Sodium Potassium Chloride Carbon Dioxide Anion Gap BUN Creatinine Est GFR ( Amer) Est GFR (Non-Af Amer) POC Glucose (mg/dL) 141 H Random Glucose Serum Osmolality Calcium Phosphorus Magnesium Total Bilirubin AST ALT Alkaline Phosphatase Total Creatine Kinase Troponin I Total Protein Albumin Globulin Albumin/Globulin Ratio Homocysteine Procalcitonin RPR Blood Type Blood Type Confirm Antibody Screen BBK History Checked Microbiology 08/22/16 09:56 Sputum Gram Stain - Final 08/19/16 18:30 Blood-Venous Blood Culture - Preliminary NO GROWTH AFTER 3 DAYS 08/19/16 18:20 Blood-Venous Blood Culture - Preliminary NO GROWTH AFTER 3 DAYS 08/20/16 14:38 Blood-Venous Blood Culture - Preliminary NO GROWTH AFTER 48 HOURS 08/20/16 09:45 Urine,Rosa Urine Culture - Final No Growth (<1,000 CFU/ML) 08/19/16 21:00 Naris MRSA Culture (Admit) - Final MRSA NOT DETECTED Accession No. : [id number] Patient Name / ID : RONALD CARDENAS / [id number] Exam Date : 08/23/2016 04:03:16 ( Approved ) Study Comment : Sex / Age : M / 71Y Creator : Glen Francis MD Dictator : Glen Francis MD Network/Telecom Engineer : Advertising Assistant : Glen Francis MD Approver2 : Report Date : 08/23/2016 12:33:03 My Comment : HISTORY: Ventilator patient. Portable study erect technique 04:25. COMPARISON: Multiple serial examinations preceding the most recent study: August 22, 2016. FINDINGS: LUNGS: No active pulmonary disease. PLEURA: No significant pleural effusion identified, no pneumothorax apparent. CARDIOVASCULAR: No radiographic findings to suggest acute or significant cardiovascular disease. OSSEOUS STRUCTURES: No significant abnormalities. VISUALIZED UPPER ABDOMEN: Normal. OTHER FINDINGS: Stable position of support apparatus including endotracheal tube and nasogastric tube. IMPRESSION: No significant interval change compared to the prior examination(s). Assessment and Plan (1) Seizure disorder Status: Acute (2) CVA (cerebral vascular accident) Status: Acute (3) CHF (congestive heart failure) Status: Acute (4) Atrial fibrillation with RVR Status: Acute - Assessment and Plan (Free Text) Assessment: A/p 71 year old amle with multiple medical conditions including CVA, seizure disorder, CAD, CHF a.fib was admitted for seizures and found to have high lactate and onbe temp of 102 in ED. pt. has clinically worsened and is lethargic and on vent continues to have fevers and is most likely central fevers. all blood and urine cx are negative normal procalcitonin level. 1. seizure 2. hemorragic CVA 3.Acutre renal insufficiency plan- if continues to have more loose stools would advise to check for c.diff. No objection to continuing with the empiric zosyn that was already initiated by the primary team to cover for possible pneumonitis..( renal dose) day #4. seizure and Brain Hemorrhage management as per neurologist and neurosurgeon and ICU team. prognosis poor ICu time 45 min.
--- NOTE | 2016-08-23 15:30 | PCM.PROC ---
Procedures Attestation:: I certify that I have explained the specified Operation(s) or Procedure(s), risks, benefits and reasonable alternatives to the Patient and/or other person responsible. The opportunity was given to ask questions and all questions answered - Central Line Placement Right Femoral Aseptic technique was employed throughout the procedure: Hand Hygiene done prior to procedure, Full sterile barriers (mask, hair cover, sterile gown, sterile gloves), Full body sterile drape, Chloraprep Antiseptic: 2 minute prep for Femoral CVP Time Out Performed: Yes Pt. Placed on Pulse Ox Monitor: Yes Central Line Prep: Chlorhexidine-Alcohol Combination Local Anesthesia Used: Lidocaine 1% Ultrasound Used for Placement: No Central Line Lumen Inserted: triple Central Line Length: 20 cm Post Procedure: Sutured in Place, Good Blood Return, All Ports Aspirated, Flushed, Capped, Sterile Dressing Applied Secured by: Suture Post procedure dressing: Chlorhexidine disc (Biopatch) Patient Tolerated Procedure: Well, No Complications Immediate Complications: None
--- NOTE | 2016-08-23 18:34 | CP.PCM.PN ---
Subjective - Date & Time of Evaluation Date of Evaluation: 08/23/16 Time of Evaluation: 18:33 - Subjective Subjective: EEG REPORT: B/L SLOW THETA ACTIVITIES, NO PAROXYSMAL OR FOCAL SLOW ACTIVITIES NOTED PHOTIC NO EVOKED RESPONSES Objective - Vital Signs/Intake and Output Vital Signs (last 24 hours): Temp Pulse Resp BP Pulse Ox 99.9 F H 86 24 145/89 100 08/23/16 16:00 08/23/16 16:00 08/23/16 16:00 08/23/16 16:00 08/23/16 16:00 Intake and Output: 08/23/16 08/23/16 06:59 18:59 Intake Total 1070 730 Output Total 750 Balance 320 730 - Medications Medications: Current Medications Acetaminophen (Tylenol 650mg/20.3ml Solution Ud) 650 mg PO Q6 PRN PRN Reason: Temperature Last Admin: 08/22/16 23:45 Dose: 650 mg Atorvastatin Calcium (Lipitor) 40 mg PO DAILY [facility] Last Admin: 08/23/16 08:25 Dose: 40 mg Enalapril Maleate (Vasotec) 2.5 mg PO DAILY [facility] Last Admin: 08/23/16 08:26 Dose: 2.5 mg Folic Acid (Folic Acid) 1 mg PO DAILY [facility] Last Admin: 08/23/16 08:23 Dose: 1 mg Piperacillin Sod/Tazobactam (Sod 2.25 gm/ Sodium Chloride) 100 mls @ 100 mls/ hr IVPB Q6 [facility] Last Admin: 08/23/16 16:06 Dose: 100 mls/hr Levetiracetam 500 mg/ Sodium (Chloride) 105 mls @ 210 mls/hr IVPB Q12 [facility] Last Admin: 08/23/16 08:24 Dose: 210 mls/hr Metoprolol Tartrate (Lopressor) 12.5 mg PO Q12 [facility] Last Admin: 08/23/16 08:25 Dose: 12.5 mg Pantoprazole Sodium (Protonix Susp) 40 mg GT DAILY [facility] Last Admin: 08/23/16 08:25 Dose: 40 mg Thiamine HCl (Vitamin B1 Tab) 100 mg PO DAILY [facility] Last Admin: 08/23/16 08:26 Dose: 100 mg - Labs Labs: 08/23/16 04:20 08/23/16 04:20 PT 10.8 Seconds (9.8-13.1) 07/02/17 18:00 INR 1.0 (0.9-1.2) 08/19/16 18:00 APTT 22.9 Seconds (25.6-37.1) L 08/19/16 18:00 Assessment and Plan (1) Alcohol abuse with alcohol-induced disorder Status: Acute
--- NOTE | 2016-08-23 19:42 | CP.PCM.PN ---
Subjective - Date & Time of Evaluation Date of Evaluation: 08/23/16 Time of Evaluation: 19:40 - Subjective Subjective: COMATOSED EYES CLOSED LEFT LATERAL GAZE PUPIL SLUGGISH QUADRIPARESIS PLANTARS ARE MUTE HIGH TROPONIN - ? CARDIAC EEG NO SEIZURES OVERALL PROGNOSIS IS POOR Objective - Vital Signs/Intake and Output Vital Signs (last 24 hours): Temp Pulse Resp BP Pulse Ox 99.9 F H 74 24 143/70 100 08/23/16 16:00 08/23/16 18:00 08/23/16 18:00 08/23/16 18:00 08/23/16 18:00 Intake and Output: 08/23/16 08/24/16 18:59 06:59 Intake Total 870 Output Total 700 Balance 170 - Medications Medications: Current Medications Acetaminophen (Tylenol 650mg/20.3ml Solution Ud) 650 mg PO Q6 PRN PRN Reason: Temperature Last Admin: 08/22/16 23:45 Dose: 650 mg Atorvastatin Calcium (Lipitor) 40 mg PO DAILY [facility] Last Admin: 08/23/16 08:25 Dose: 40 mg Enalapril Maleate (Vasotec) 2.5 mg PO DAILY [facility] Last Admin: 08/23/16 08:26 Dose: 2.5 mg Folic Acid (Folic Acid) 1 mg PO DAILY [facility] Last Admin: 08/23/16 08:23 Dose: 1 mg Piperacillin Sod/Tazobactam (Sod 2.25 gm/ Sodium Chloride) 100 mls @ 100 mls/ hr IVPB Q6 [facility] Last Admin: 08/23/16 16:06 Dose: 100 mls/hr Levetiracetam 500 mg/ Sodium (Chloride) 105 mls @ 210 mls/hr IVPB Q12 [facility] Last Admin: 08/23/16 08:24 Dose: 210 mls/hr Metoprolol Tartrate (Lopressor) 12.5 mg PO Q12 [facility] Last Admin: 08/23/16 08:25 Dose: 12.5 mg Pantoprazole Sodium (Protonix Susp) 40 mg GT DAILY [facility] Last Admin: 08/23/16 08:25 Dose: 40 mg Thiamine HCl (Vitamin B1 Tab) 100 mg PO DAILY [facility] Last Admin: 08/23/16 08:26 Dose: 100 mg - Labs Labs: 08/23/16 04:20 08/23/16 04:20 PT 10.8 Seconds (9.8-13.1) 08/19/16 18:00 INR 1.0 (0.9-1.2) 08/19/16 18:00 APTT 22.9 Seconds (25.6-37.1) L 08/19/16 18:00 Assessment and Plan (1) Alcohol abuse with alcohol-induced disorder Status: Acute
--- NOTE | 2016-08-23 22:27 | CP.PCM.PN ---
Subjective - Date & Time of Evaluation Date of Evaluation: 08/23/16 Time of Evaluation: 21:00 - Subjective Subjective: Unresponsive on Vent A Fib with controlled rate Objective - Vital Signs/Intake and Output Vital Signs (last 24 hours): Temp Pulse Resp BP Pulse Ox 99.4 F 84 23 158/86 H 100 08/23/16 20:00 08/23/16 20:04 08/23/16 20:00 08/23/16 20:04 08/23/16 20:00 Intake and Output: 08/23/16 08/24/16 18:59 06:59 Intake Total 870 240 Output Total 700 Balance 170 240 - Medications Medications: Current Medications Acetaminophen (Tylenol 650mg/20.3ml Solution Ud) 650 mg PO Q6 PRN PRN Reason: Temperature Last Admin: 08/22/16 23:45 Dose: 650 mg Atorvastatin Calcium (Lipitor) 40 mg PO DAILY [facility] Last Admin: 08/23/16 08:25 Dose: 40 mg Enalapril Maleate (Vasotec) 2.5 mg PO DAILY [facility] Last Admin: 08/23/16 08:26 Dose: 2.5 mg Folic Acid (Folic Acid) 1 mg PO DAILY [facility] Last Admin: 08/23/16 08:23 Dose: 1 mg Piperacillin Sod/Tazobactam (Sod 2.25 gm/ Sodium Chloride) 100 mls @ 100 mls/ hr IVPB Q6 [facility] Last Admin: 08/23/16 21:11 Dose: 100 mls/hr Levetiracetam 500 mg/ Sodium (Chloride) 105 mls @ 210 mls/hr IVPB Q12 [facility] Last Admin: 08/23/16 20:03 Dose: 210 mls/hr Metoprolol Tartrate (Lopressor) 12.5 mg PO Q12 [facility] Last Admin: 08/23/16 20:04 Dose: 12.5 mg Pantoprazole Sodium (Protonix Susp) 40 mg GT DAILY [facility] Last Admin: 08/23/16 08:25 Dose: 40 mg Thiamine HCl (Vitamin B1 Tab) 100 mg PO DAILY [facility] Last Admin: 08/23/16 08:26 Dose: 100 mg - Labs Labs: 08/23/16 04:20 08/23/16 04:20 PT 10.8 Seconds (9.8-13.1) 08/19/16 18:00 INR 1.0 (0.9-1.2) 08/19/16 18:00 APTT 22.9 Seconds (25.6-37.1) L 08/19/16 18:00 - Respiratory Exam Respiratory Exam: Rhonchi - Cardiovascular Exam Cardiovascular Exam: Irregular Rhythm - GI/Abdominal Exam GI & Abdominal Exam: Hypoactive Bowel Sounds Assessment and Plan - Assessment and Plan (Free Text) Assessment: Cerebral Hge CAD s/p CABG A Fib CKD Anemia, thrombocytopenia CHF systolic Plan: Cont Acetaminophen (Tylenol 650mg/20.3ml Solution Ud) 650 mg PO Q6 PRN PRN Reason: Temperature Last Admin: 08/22/16 23:45 Dose: 650 mg Atorvastatin Calcium (Lipitor) 40 mg PO DAILY [facility] Last Admin: 08/23/16 08:25 Dose: 40 mg Enalapril Maleate (Vasotec) 2.5 mg PO DAILY [facility] Last Admin: 08/23/16 08:26 Dose: 2.5 mg Folic Acid (Folic Acid) 1 mg PO DAILY [facility] Last Admin: 08/23/16 08:23 Dose: 1 mg Piperacillin Sod/Tazobactam (Sod 2.25 gm/ Sodium Chloride) 100 mls @ 100 mls/ hr IVPB Q6 [facility] Last Admin: 08/23/16 21:11 Dose: 100 mls/hr Levetiracetam 500 mg/ Sodium (Chloride) 105 mls @ 210 mls/hr IVPB Q12 [facility] Last Admin: 08/23/16 20:03 Dose: 210 mls/hr Metoprolol Tartrate (Lopressor) 12.5 mg PO Q12 [facility] Last Admin: 08/23/16 20:04 Dose: 12.5 mg Pantoprazole Sodium (Protonix Susp) 40 mg GT DAILY [facility] Last Admin: 08/23/16 08:25 Dose: 40 mg Thiamine HCl (Vitamin B1 Tab) 100 mg PO DAILY [facility] Last Admin: 08/23/16 08:26 Dose: 100 mg Family signed DNR I reviewed Neuro, ID and sprinkler driver noted
[2016-08-24] MEDS ORDERED: Metoprolol 1 mg/ml Inj IVP STA (02:21)
--- NOTE | 2016-08-24 02:23 | CP.PCM.PCO ---
Physician Communication Note - Physician Communication Note Physician Communication Note: BP 195/110 with HR 127/min. Lopressor 5mg IVP administered.
[2016-08-24] MEDS: Acetaminophen 650mg/20.3ml solution UD PO PRN ×3 (04:20→16:18)
[2016-08-24 05:18] LABS: ABG ALLEN TEST YES; ARTERIAL BLOOD GAS HEMOGLOBIN 10.7 g/dL (11.7-17.4); ARTERIAL BLOOD GAS O2 CAPACITY 14.9 mL/dL (16-24); ARTERIAL BLOOD GAS O2 CONTENT 14.8 ML/dL (15-23); ARTERIAL BLOOD GAS O2 SAT 99.1 % (95-98); ARTERIAL BLOOD GAS PCO2 28 mm/Hg (35-45); ARTERIAL BLOOD GAS PH 7.55 (7.35-7.45); ARTERIAL BLOOD GAS PO2 148 mm/Hg (80-100); ARTERIAL BLOOD GAS TCO2 25.4 mmol/L (22-28)
[2016-08-24 06:17] VITALS: O2SAT 100
[2016-08-24 06:27] LABS: BASO # 0.1 K/uL (0.0-0.2); BASO % 0.5 % (0.0-2.0); EOS # 0.1 K/uL (0.0-0.7); EOS % 0.6 % (0.0-4.0); HEMOGLOBIN 10.6 g/dL (12.0-18.0); LYMPH # 0.7 K/uL (1.0-4.3); LYMPH % 5.4 % (20.0-40.0); MEAN CELL VOLUME 107.6 fl (80.0-94.0); MEAN CORPUSCULAR HEMOGLOBIN 34.3 pg (27.0-31.0); MEAN CORPUSCULAR HGB CONC 31.9 g/dL (33.0-37.0); MEAN PLATELET VOLUME 11.5 fl (7.2-11.7); MONO # 1.7 K/uL (0.0-0.8); MONO % 13.7 % (0.0-10.0); NEUT # 9.7 K/uL (1.8-7.0); NEUT % 79.8 % (50.0-75.0); NRBC % 0.2 % (0.0-0.0); PLATELET COUNT 109 K/uL (130-400); RBC 3.09 Mil/uL (4.40-5.90); RED CELL DISTRIBUTION WIDTH 15.4 % (11.5-14.5); WHITE BLOOD COUNT 12.2 K/uL (4.8-10.8)
--- NOTE | 2016-08-24 07:32 | CP.CCUPN ---
<Rachael Fernandez - Last Filed: 08/24/16 15:15> CCU Subjective - Physician Review Subjective (Free Text): 71 YO M w. h/o CAD, Afib, had a right sided CVA w/ hemorrhagic conversion which seems to be stabilized on the last CT scan - This morning patient is seen on the ventilator day 4, Continuous to be lethargin. Pt is not responding to painful stimuli. He is unable to open eyes to verbal command. He had a BP of 192/99 at 2 am, hospitalist was called and he was given lopresor 5mg IVP. - Spoke to the family yesterday and tthe daughter who is the POA, wants to wait till Saturday for terminal extubation because they are waiting for family. - Patient has been spiking fevers throughout the night with a TMAX if 103.1. Vitals in AM on rounds 139/72 HR:90 Temp:101.2 Vent settings: RR:12, TV: 500, PEEP 5, FIO2: 40 CCU Objective - Vital Signs / Intake & Output Vital Signs (Last 4 hours): Vital Signs Temp Pulse Resp BP Pulse Ox 08/24/16 06:00 90 25 H 137/80 100 08/24/16 04:20 103.1 F H 08/24/16 04:00 103.1 F H 103 H 29 H 173/86 H 96 Intake and Output (Last 8hrs): Intake & Output 08/23/16 08/24/16 08/24/16 22:59 06:59 14:59 Intake Total 860 660 Output Total 700 550 Balance 160 110 Intake: Intake, Piggyback 200 Tube Feeding 560 560 Free Water Flush 100 100 Output: Urine 700 550 Urethral (Rosa) 700 550 - Physical Exam Head: Positive for: Atraumatic, Normocephalic Pupils: Positive for: PERRL Extroacular Muscles: Positive for: EOMI Mouth: Positive for: Dry Respiratory/Chest: Positive for: Clear to Auscultation, Good Air Exchange Cardiovascular: Positive for: Normal S1, S2, Irregular Rhythm. Negative for: Murmurs Abdomen: Positive for: Normal Bowel Sounds, Feeding Tubes (OG tube). Negative for: Tenderness, Distention, Rebound Upper Extremity: Positive for: NORMAL PULSES, Other (Pt is not resoponding to commands today. No resting tremmor seen). Negative for: Edema Neurological: Positive for: Other (He is not following comands, and is slightly responding to painful stimuli). Negative for: Speech Normal Skin: Positive for: Warm, Normal Color Psychiatric: Positive for: Lethargic, Other ( But unable to open eyes and is not responding to painful stimuli) - Medications Active Medications: Active Medications Generic Name Dose Route Start Last Admin Trade Name Freq PRN Reason Stop Dose Admin Acetaminophen 650 mg 08/22/16 13:07 08/24/16 04:20 Tylenol 650mg/20.3ml Solution Ud PO 650 mg Q6 PRN Administration Temperature Atorvastatin Calcium 40 mg 08/20/16 15:00 08/23/16 08:25 Lipitor PO 40 mg DAILY [facility] Administration Enalapril Maleate 2.5 mg 08/21/16 16:30 08/23/16 08:26 Vasotec PO 2.5 mg DAILY [facility] Administration Folic Acid 1 mg 08/21/16 09:00 08/23/16 08:23 Folic Acid PO 1 mg DAILY [facility] Administration Piperacillin Sod/Tazobactam 100 mls @ 100 mls/hr 08/20/16 16:00 08/24/16 04: 05 Sod 2.25 gm/ Sodium Chloride IVPB 100 mls/hr Q6 [facility] Administration Levetiracetam 500 mg/ Sodium 105 mls @ 210 mls/hr 08/20/16 21:00 08/23/16 20: 03 Chloride IVPB 210 mls/hr Q12 [facility] Administration Metoprolol Tartrate 12.5 mg 08/22/16 21:00 08/23/16 20:04 Lopressor PO 12.5 mg Q12 [facility] Administration Pantoprazole Sodium 40 mg 08/23/16 09:00 08/23/16 08:25 Protonix Susp GT 40 mg DAILY [facility] Administration Thiamine HCl 100 mg 08/21/16 09:00 08/23/16 08:26 Vitamin B1 Tab PO 100 mg DAILY [facility] Administration - Patient Studies Lab Studies: Microbiology Studies 08/20/16 14:38 Blood Culture - Preliminary Blood-Venous NO GROWTH AFTER 3 DAYS Lab Studies 08/24/16 08/24/16 08/24/16 Range/Units 05:28 05:10 05:00 WBC (4.8-10.8) K/uL RBC (4.40-5.90) Mil/uL Hgb (12.0-18.0) g/dL Hct (35.0-51.0) % MCV (80.0-94.0) fl MCH (27.0-31.0) pg MCHC (33.0-37.0) g/dL RDW (11.5-14.5) % Plt Count (130-400) K/uL MPV (7.2-11.7) fl Neut % (Auto) (50.0-75.0) % Lymph % (Auto) (20.0-40.0) % [place] % (Auto) (0.0-10.0) % Eos % (Auto) (0.0-4.0) % Baso % (Auto) (0.0-2.0) % Neut # (1.8-7.0) K/uL Lymph # (1.0-4.3) K/uL [place] # (0.0-0.8) K/uL Eos # (0.0-0.7) K/uL Baso # (0.0-0.2) K/uL pCO2 28 L (35-45) mm/Hg pO2 148 H (80-100) mm/Hg HCO3 27.0 (21-28) mmol/L ABG pH 7.55 H (7.35-7.45) ABG Total CO2 25.4 (22-28) mmol/L ABG O2 Saturation 99.1 H (95-98) % ABG O2 Content 14.8 L (15-23) ML/dL ABG Base Excess 2.7 (-2.0-3.0) mmol/L ABG Hemoglobin 10.7 L (11.7-17.4) g/dL ABG Carboxyhemoglobin 1.1 (0.5-1.5) % POC ABG HHb (Measured) 0.9 (0.0-5.0) % ABG Methemoglobin 1.6 (0.0-3.0) % ABG O2 Capacity 14.9 L (16-24) mL/dL Ezra Test Yes A-a O2 Difference 102.0 mm/Hg Hgb O2 Saturation 96.4 (95.0-98.0) % Vent Mode A/c Mechanical Rate 12 FiO2 40.0 % Tidal Volume 500 PEEP 5 Sodium 150 H (132-148) mmol/l Potassium 3.9 (3.6-5.0) MMOL/L Chloride 118 H (98-107) mmol/L Carbon Dioxide 23 (22-30) mmol/L Anion Gap 13 (10-20) BUN 31 H (9-20) mg/dl Creatinine 1.6 H (0.8-1.5) mg/dL Est GFR ( Amer) 52 Est GFR (Non-Af Amer) 43 POC Glucose (mg/dL) 153 H (65-110) mg/dL Random Glucose 163 H (75-110) mg/dL Calcium 8.0 L (8.4-10.2) mg/dL Troponin I (0.00-0.120) ng/mL 08/24/16 08/23/16 Range/Units 05:00 16:15 WBC 12.2 H (4.8-10.8) K/uL RBC 3.09 L (4.40-5.90) Mil/uL Hgb 10.6 L (12.0-18.0) g/dL Hct 33.2 L (35.0-51.0) % MCV 107.6 H (80.0-94.0) fl MCH 34.3 H (27.0-31.0) pg MCHC 31.9 L (33.0-37.0) g/dL RDW 15.4 H (11.5-14.5) % Plt Count 109 L (130-400) K/uL MPV 11.5 (7.2-11.7) fl Neut % (Auto) 79.8 H (50.0-75.0) % Lymph % (Auto) 5.4 L (20.0-40.0) % [place] % (Auto) 13.7 H (0.0-10.0) % Eos % (Auto) 0.6 (0.0-4.0) % Baso % (Auto) 0.5 (0.0-2.0) % Neut # 9.7 H (1.8-7.0) K/uL Lymph # 0.7 L (1.0-4.3) K/uL [place] # 1.7 H (0.0-0.8) K/uL Eos # 0.1 (0.0-0.7) K/uL Baso # 0.1 (0.0-0.2) K/uL pCO2 (35-45) mm/Hg pO2 (80-100) mm/Hg HCO3 (21-28) mmol/L ABG pH (7.35-7.45) ABG Total CO2 (22-28) mmol/L ABG O2 Saturation (95-98) % ABG O2 Content (15-23) ML/dL ABG Base Excess (-2.0-3.0) mmol/L ABG Hemoglobin (11.7-17.4) g/dL ABG Carboxyhemoglobin (0.5-1.5) % POC ABG HHb (Measured) (0.0-5.0) % ABG Methemoglobin (0.0-3.0) % ABG O2 Capacity (16-24) mL/dL Ezra Test A-a O2 Difference mm/Hg Hgb O2 Saturation (95.0-98.0) % Vent Mode Mechanical Rate FiO2 % Tidal Volume PEEP Sodium (132-148) mmol/l Potassium (3.6-5.0) MMOL/L Chloride (98-107) mmol/L Carbon Dioxide (22-30) mmol/L Anion Gap (10-20) BUN (9-20) mg/dl Creatinine (0.8-1.5) mg/dL Est GFR ( Amer) Est GFR (Non-Af Amer) POC Glucose (mg/dL) (65-110) mg/dL Random Glucose (75-110) mg/dL Calcium (8.4-10.2) mg/dL Troponin I 0.2840 H* (0.00-0.120) ng/mL Laboratory Results - last 24 hr 08/23/16 08/24/16 08/24/16 16:15 05:00 05:00 WBC 12.2 H RBC 3.09 L Hgb 10.6 L Hct 33.2 L MCV 107.6 H MCH 34.3 H MCHC 31.9 L RDW 15.4 H Plt Count 109 L MPV 11.5 Neut % (Auto) 79.8 H Lymph % (Auto) 5.4 L [place] % (Auto) 13.7 H Eos % (Auto) 0.6 Baso % (Auto) 0.5 Neut # 9.7 H Lymph # 0.7 L [place] # 1.7 H Eos # 0.1 Baso # 0.1 pCO2 pO2 HCO3 ABG pH ABG Total CO2 ABG O2 Saturation ABG O2 Content ABG Base Excess ABG Hemoglobin ABG Carboxyhemoglobin POC ABG HHb (Measured) ABG Methemoglobin ABG O2 Capacity Ezra Test A-a O2 Difference Hgb O2 Saturation Vent Mode Mechanical Rate FiO2 Tidal Volume PEEP Sodium 150 H Potassium 3.9 Chloride 118 H Carbon Dioxide 23 Anion Gap 13 BUN 31 H Creatinine 1.6 H Est GFR ( Amer) 52 Est GFR (Non-Af Amer) 43 POC Glucose (mg/dL) Random Glucose 163 H Calcium 8.0 L Troponin I 0.2840 H* 08/24/16 08/24/16 05:10 05:28 WBC RBC Hgb Hct MCV MCH MCHC RDW Plt Count MPV Neut % (Auto) Lymph % (Auto) [place] % (Auto) Eos % (Auto) Baso % (Auto) Neut # Lymph # [place] # Eos # Baso # pCO2 28 L pO2 148 H HCO3 27.0 ABG pH 7.55 H ABG Total CO2 25.4 ABG O2 Saturation 99.1 H ABG O2 Content 14.8 L ABG Base Excess 2.7 ABG Hemoglobin 10.7 L ABG Carboxyhemoglobin 1.1 POC ABG HHb (Measured) 0.9 ABG Methemoglobin 1.6 ABG O2 Capacity 14.9 L Ezra Test Yes A-a O2 Difference 102.0 Hgb O2 Saturation 96.4 Vent Mode A/c Mechanical Rate 12 FiO2 40.0 Tidal Volume 500 PEEP 5 Sodium Potassium Chloride Carbon Dioxide Anion Gap BUN Creatinine Est GFR ( Amer) Est GFR (Non-Af Amer) POC Glucose (mg/dL) 153 H Random Glucose Calcium Troponin I Fingerstick Blood Sugar Results: 153 Critical Care Progress Note - Ventilator Checklist Head of Bed 30 Degrees: Yes PUD Prophalyxis: Yes DVT Prophylaxis: Yes Oral Care with Chlorhexidine Gluconate {CHG}: Yes - Vent Settings TIDAL VOLUME:: 500 RESP RATE:: 12 FIO2:: 40 PEEP:: 5 - Extremities/Vascular Does the Patient have a Central Venous Catheter?: Yes Insertion Site: Femoral Vein (rt) Does the Patient need a Central Venous Catheter?: Yes Does the Patient have a Rosa Catheter?: Yes Does the Patient need a Rosa Catheter?: Yes Assessment/Plan - Assessment and Plan (Free Text) Assessment: 71yo M. PMHx arthritis, diverticulosis, CVA, ETOH abuse, withdrawal seizures, CABG, CAD with stents, atrial fibrillation, HTN, dyslipidemia, PVD, CVA. p/w suspected withdrawal seizures, still drinking daily. Patient is unresponsive to verbal or painful stimulii. The duaghter who is the POA has decided that she wants the patient to be DNR and possible terminal extubation on Saturday when rest of family arrives. 1) CVA w/ hemorrhagic conversion - GCS of 3 E1/V1/M1. Sharing network states patient is not a canidate for donor. Currently DNR possible terminal extubation on as per daughter. - Initial CT of head showed old CVA. MRI done yesterday showed large right parietal operculum hemorrhage by a rim of edema or possible ischemia. The CT scan from 08/22/16 did not show any progression of the bleed compared to the MRI. -Unresponisve to verbal or physical stimuli - Pt poor surgical canidate as per neurosurg - NG Tube in place. Patient on Jevity w/ 150 ml of fluids. - Continue to hold all anticoagulants. Do to the hemorrhagic conversion have stopped all anticoagulation. DDAVP and platelets were given for ASA reversal - Holding manitol until serum osmolarity drops below 320. Today serum osmolarity is 321 - F/U serum osmolarity and reassess manitol giving mannitol. - Keep bed elevated to 45 degrees - Neurology and neurosurgery consult appreciated - Patient currently on a ventilator. 2) Respiratory failure secondary to CVA - Respiratory alkalosis. PH: 7.55, PCO2:28, Bicarb 27 - Vent settings today RR: 12, TV:500, PEEP: 5, FIO2: 40 3) Respiratory Alkalosis - Could be secondary to central cause vs increased right sided infiltrate on x ray compared to left side of the chest 4) Seizure episode most likely secondary to new CVA - Neurology on consult - CPK levels WNL No seizure like activity noted since admission - EEG did not show any seziure like activity - Thiamine, folic acid - Keppra for sezure prophylaxis has been converted to PO 5) Atrial Fibrilation w/ RVR ( Currently controlled) - Metoprolol PO 25 mg Q12 via OG tube - Hold cardizem - Echo shows impaired systolic function w/ EF of 35-40% - Continue monitoring heart rate 6) JONELLE -pre renal - BUN 31 Creatinine 1.6 7) Suspected aspiration pneumonia Tmax of 102 on admission w/ coughing spells ( This morning temperature at 8 am 101 F.). Currently patient has not been noted to be coughing. - TMAX overnight was 103 WBC 12.2 , trending up Dr. Rodriguez on board ID consult appreciated Continue Zosyn empirically Blood culture and urine culture showed no growth X ray shows increased right sided infiltrates compared to the left - F/U with sputum culture: Rare gram positive cocci seen in sputum , awaiting official read 8) Hypertensive - Blood pressure over night 192/99 and was given lopressor 5. Patients Lopressor dosage being increased to 25mg from 12.5mg - Could be secondary to pain from stimulation. - Goal is to keep systolic below 140 9) Hypokalemia Resolved - K+ : 3.9 after supplementation 10) Elevated troponin - Slowly trending down. Latest this morning was .28 11) Prophlaxis - DVT PX: Hold lovenox currently on SCD - GI PX: Protonix IV <Trever Holder - Last Filed: 08/24/16 16:56> Assessment/Plan - Assessment and Plan (Free Text) Plan: Attestation: Patient seen and examined at the bedside with Resident Dr. Kalani Fernandez; and I agree with his outline of plans and management as documented and discussed on AM rounds reflecting my review of all applicable clinical data, and participation in the care of the patient throughout the day in ICU; today, August 24, 2016.
[2016-08-24] MEDS: levETIRAcetam 500 MG in Sodium Chloride 0.9% 100 ML IVPB SCH (08:34)
[2016-08-24] MEDS: Pantoprazole 40 mg Susp UD GT SCH (08:35)
[2016-08-24 09:11] LABS: ANISOCYTOSIS SLIGHT; LYMPHOCYTE 6 % (20-50); MONOCYTE 15 % (0-10); NEUTROPHIL 79 % (42-75); PLATELET ESTIMATE DECREASED (NORMAL); TOTAL CELLS COUNTED 100
--- NOTE | 2016-08-24 09:36 | RAD ---
HISTORY: on vent COMPARISON: 08/23/2016 FINDINGS: The endotracheal tube terminates 5.4 cm proximal to the hollie. The nasogastric tube terminates in the stomach. LUNGS: The lungs are well inflated. There is subsegmental atelectasis in the left lung base. No focal consolidation. PLEURA: No significant pleural effusion identified, no pneumothorax apparent. CARDIOVASCULAR: There is mild cardiomegaly. Status post CABG. Atherosclerotic aortic arch calcifications are present. OSSEOUS STRUCTURES: No significant abnormalities. VISUALIZED UPPER ABDOMEN: Normal. OTHER FINDINGS: None. IMPRESSION: Stable position of endotracheal and nasogastric tubes. No acute findings.
--- NOTE | 2016-08-24 11:12 | CP.PCM.PN ---
Subjective - Date & Time of Evaluation Date of Evaluation: 08/24/16 Time of Evaluation: 10:45 - Subjective Subjective: Pt remains intubated on [facility] Vent Unresponsive even to painful stimuli Febrile Family at bedside Family is waiting for pt's sister to come however they are thinking of terminal extubation Objective - Vital Signs/Intake and Output Vital Signs (last 24 hours): Temp Pulse Resp BP Pulse Ox 101.2 F H 76 23 126/61 100 08/24/16 09:31 08/24/16 11:00 08/24/16 11:00 08/24/16 11:00 08/24/16 11:00 Intake and Output: 08/24/16 08/24/16 06:59 18:59 Intake Total 1140 584 Output Total 550 0 Balance 590 584 - Medications Medications: Current Medications Acetaminophen (Tylenol 650mg/20.3ml Solution Ud) 650 mg PO Q6 PRN PRN Reason: Temperature Last Admin: 08/24/16 09:31 Dose: 650 mg Atorvastatin Calcium (Lipitor) 40 mg PO DAILY [facility] Last Admin: 08/24/16 08:33 Dose: 40 mg Enalapril Maleate (Vasotec) 2.5 mg PO DAILY [facility] Last Admin: 08/24/16 08:33 Dose: 2.5 mg Folic Acid (Folic Acid) 1 mg PO DAILY [facility] Last Admin: 08/24/16 08:34 Dose: 1 mg Piperacillin Sod/Tazobactam (Sod 2.25 gm/ Sodium Chloride) 100 mls @ 100 mls/ hr IVPB Q6 [facility] Last Admin: 08/24/16 09:30 Dose: 100 mls/hr Levetiracetam 500 mg/ Sodium (Chloride) 105 mls @ 210 mls/hr IVPB Q12 [facility] Last Admin: 08/24/16 08:34 Dose: 210 mls/hr Metoprolol Tartrate (Lopressor) 25 mg PO Q12 [facility] Pantoprazole Sodium (Protonix Susp) 40 mg GT DAILY [facility] Last Admin: 08/24/16 08:35 Dose: 40 mg Thiamine HCl (Vitamin B1 Tab) 100 mg PO DAILY [facility] Last Admin: 08/24/16 08:32 Dose: 100 mg - Labs Labs: 08/24/16 05:00 08/24/16 05:00 PT 10.8 Seconds (9.8-13.1) 08/19/16 18:00 INR 1.0 (0.9-1.2) 08/19/16 18:00 APTT 22.9 Seconds (25.6-37.1) L 08/19/16 18:00 - Constitutional Appears: Chronically Ill, Other (Intubated on Mech vent, unresponsive to painful stimuli) - Head Exam Head Exam: NORMOCEPHALIC - Eye Exam Additional comments: sluggishly reactive to light - ENT Exam ENT Exam: Mucous Membranes Dry, Normal External Ear Exam - Respiratory Exam Respiratory Exam: Rhonchi Additional comments: Intubated on Vent 40% FiO2, - Cardiovascular Exam Cardiovascular Exam: Irregular Rhythm, +S1, +S2 - GI/Abdominal Exam GI & Abdominal Exam: Soft, Normal Bowel Sounds - Extremities Exam Extremities Exam: Pedal Edema - Neurological Exam Additional comments: unresponsive - Skin Skin Exam: Dry, Normal Color, Warm Assessment and Plan - Assessment and Plan (Free Text) Assessment: 71 years old male with hx of non compliance with medication, CVA, CAD s/p CABG, CHF, Alcohol abuse with intoxication, A Fib, and Seizure was brought from home to the ED because of 3 episodes of witnessed seizures. In the ED patient was found to be in A Fib with RVR, Temperature of 102F, Dysarthric, with left sided weakness and a NIHSS of 13. CT head in ER showed old CVA and no acute infarct or bleed. Neurology was consulted and patient started on ASA, Lovenox therapeutic , lipitor and cardizem drip for rate control. MRI of the brain performed 12 hours from presentation showed large right parietal area bleed. ASa , lovenox were held and Vitamin K and platelet ordered to reverse their effect. Neurology and neurosurgery informed. He was given 1 dose DDAVP , started on Mannitol drip and Keppra for seizure. At present , he is intubated for airway protection and remains unresponsive.. 1. Intracranial Bleed unresponsive to pain ,intubated on MV for airway protection initial CT head showed old CVA , no bleed no acute stroke MRI head showed :Large right parietal hemorrhage with edema Follow up CT showed 5x7x 6.3 right parietal intraparenchymal hemorrhage , extensive edema with midline shift Neurology and neurosurgery on consult Patient is not a surgical candidate ASA and lovenox held Vitamin K , Platelet transfusion given DDAVP 1 dose was given as well as Mannitol to decrease the intra cerebral edema- on hold , restart if Osm less than 320 Patient intubated for airway protection Keep HOB elevated on Keppra for seizure Daughter Renetta who is POA decided on DNR and thinking of terminal extubation however awaiting on pt's sister before finally deciding 2. Seizure episodes most likely due to new CVA with some episodes of focal tremors to RUE MRI with large right parietal bleed Neurology consulted . Dr. Celestin started on Keppra for seizure ativan PRN Thiamine, folic acid , MVI 3. Suspected Aspiration Pneumonia Tmax [address] Rodriguez Silicator ID consult appreciated Continue Zosyn empirically blood and sputum cx with no growth rpt CXR 08/24 :no focal consolidation 4. Suspected Sepsis procalcitonin - normal Cultures with no growth repeat CXR showed no infiltrate Continue Zosyn lactic acid elevation most likely secondary to tissue hypoperfusion and seizure episodes consult with Dr Tello ID appreciated 5. A Fib with RVR now rate controlled Cardizem drip discontinued on Metoprolol IV no anticoagulation due to intracranial bleed cardiology consult with Dr James appreciated Echo showed LVH and decreased EF 35-40 % 6. Elevated Troponin probably related to Afib with RVR less likely NSTEMI cardiology consulted Echo showed EF 35-40 % Continue lopressor d/c ASA due to intracranial bleed 7. Chronic CHF systolic dysfunction Cardiology consulted EF 35 -40 % on Lopressor and enalapril 8. JONELLE Most likely prerenal Cr trending up to 2.0 Repeat BMP in AM 9. DM ruled out HbA1c 5.4 10. Chronic Thrombocytopenia Most likely related to ETOH abuse 11. Stress ulcer prophylaxis pantoprazole 12. DVT Prophylaxis SCD d/c lovenox 13. Hypokalemia replace with KCl 14. History of ETOH dependence / alcoholism ETOH levels < 10 started thiamine, Folic acid Ativan PRN for seizure 15. Feeding Jevity via NGT
--- NOTE | 2016-08-24 12:48 | CP.PCM.PN ---
Subjective - Date & Time of Evaluation Date of Evaluation: 08/24/16 Time of Evaluation: 12:46 - Subjective Subjective: Unresponsive on Vent A Fib with controlled rate Objective - Vital Signs/Intake and Output Vital Signs (last 24 hours): Temp Pulse Resp BP Pulse Ox 99.4 F 89 22 150/68 100 08/24/16 12:00 08/24/16 12:00 08/24/16 12:00 08/24/16 12:00 08/24/16 12:00 Intake and Output: 08/24/16 08/24/16 06:59 18:59 Intake Total 1140 824 Output Total 550 0 Balance 590 824 - Medications Medications: Current Medications Acetaminophen (Tylenol 650mg/20.3ml Solution Ud) 650 mg PO Q6 PRN PRN Reason: Temperature Last Admin: 08/24/16 09:31 Dose: 650 mg Atorvastatin Calcium (Lipitor) 40 mg PO DAILY [facility] Last Admin: 08/24/16 08:33 Dose: 40 mg Enalapril Maleate (Vasotec) 2.5 mg PO DAILY [facility] Last Admin: 08/24/16 08:33 Dose: 2.5 mg Folic Acid (Folic Acid) 1 mg PO DAILY [facility] Last Admin: 08/24/16 08:34 Dose: 1 mg Piperacillin Sod/Tazobactam (Sod 2.25 gm/ Sodium Chloride) 100 mls @ 100 mls/ hr IVPB Q6 [facility] Last Admin: 08/24/16 09:30 Dose: 100 mls/hr Levetiracetam 500 mg/ Sodium (Chloride) 105 mls @ 210 mls/hr IVPB Q12 [facility] Last Admin: 08/24/16 08:34 Dose: 210 mls/hr Metoprolol Tartrate (Lopressor) 25 mg PO Q12 [facility] Pantoprazole Sodium (Protonix Susp) 40 mg GT DAILY [facility] Last Admin: 08/24/16 08:35 Dose: 40 mg Thiamine HCl (Vitamin B1 Tab) 100 mg PO DAILY [facility] Last Admin: 08/24/16 08:32 Dose: 100 mg - Labs Labs: 08/24/16 05:00 08/24/16 05:00 PT 10.8 Seconds (9.8-13.1) 08/19/16 18:00 INR 1.0 (0.9-1.2) 08/19/16 18:00 APTT 22.9 Seconds (25.6-37.1) L 08/19/16 18:00 - Neck Exam Neck Exam: Normal Inspection - Respiratory Exam Respiratory Exam: Rhonchi - Cardiovascular Exam Cardiovascular Exam: Irregular Rhythm - GI/Abdominal Exam GI & Abdominal Exam: Normal Bowel Sounds - Extremities Exam Extremities Exam: Normal Inspection Assessment and Plan - Assessment and Plan (Free Text) Assessment: Cerebral Hge CAD S/P CABG A Fib Seizure disorder Anemia Thrombocytopenia CKD Plan: Cont. Acetaminophen (Tylenol 650mg/20.3ml Solution Ud) 650 mg PO Q6 PRN PRN Reason: Temperature Last Admin: 08/24/16 09:31 Dose: 650 mg Atorvastatin Calcium (Lipitor) 40 mg PO DAILY [facility] Last Admin: 08/24/16 08:33 Dose: 40 mg Enalapril Maleate (Vasotec) 2.5 mg PO DAILY [facility] Last Admin: 08/24/16 08:33 Dose: 2.5 mg Folic Acid (Folic Acid) 1 mg PO DAILY [facility] Last Admin: 08/24/16 08:34 Dose: 1 mg Piperacillin Sod/Tazobactam (Sod 2.25 gm/ Sodium Chloride) 100 mls @ 100 mls/ hr IVPB Q6 [facility] Last Admin: 08/24/16 09:30 Dose: 100 mls/hr Levetiracetam 500 mg/ Sodium (Chloride) 105 mls @ 210 mls/hr IVPB Q12 [facility] Last Admin: 08/24/16 08:34 Dose: 210 mls/hr Metoprolol Tartrate (Lopressor) 25 mg PO Q12 [facility] Pantoprazole Sodium (Protonix Susp) 40 mg GT DAILY [facility] Last Admin: 08/24/16 08:35 Dose: 40 mg Thiamine HCl (Vitamin B1 Tab) 100 mg PO DAILY [facility] Last Admin: 08/24/16 08:32 Dose: 100 mg Discussed with [employer] Family may terminally extubate
--- NOTE | 2016-08-24 14:47 | CP.PCM.PN ---
Subjective - Date & Time of Evaluation Date of Evaluation: 08/24/16 Time of Evaluation: 14:47 - Subjective Subjective: ID Note- Pt. seen and examined today. remains unresponsive and ventilated. continues to have fever spikes which are most likely central from the hemorrhagic stroke and seizure. Objective - Vital Signs/Intake and Output Vital Signs (last 24 hours): Temp Pulse Resp BP Pulse Ox 99.4 F 89 22 150/68 100 08/24/16 12:00 08/24/16 12:00 08/24/16 12:00 08/24/16 12:00 08/24/16 12:00 Intake and Output: 08/24/16 08/24/16 06:59 18:59 Intake Total 1140 824 Output Total 550 0 Balance 590 824 - Medications Medications: Current Medications Acetaminophen (Tylenol 650mg/20.3ml Solution Ud) 650 mg PO Q6 PRN PRN Reason: Temperature Last Admin: 08/24/16 09:31 Dose: 650 mg Atorvastatin Calcium (Lipitor) 40 mg PO DAILY [facility] Last Admin: 08/24/16 08:33 Dose: 40 mg Enalapril Maleate (Vasotec) 2.5 mg PO DAILY [facility] Last Admin: 08/24/16 08:33 Dose: 2.5 mg Folic Acid (Folic Acid) 1 mg PO DAILY [facility] Last Admin: 08/24/16 08:34 Dose: 1 mg Piperacillin Sod/Tazobactam (Sod 2.25 gm/ Sodium Chloride) 100 mls @ 100 mls/ hr IVPB Q6 [facility] Last Admin: 08/24/16 09:30 Dose: 100 mls/hr Levetiracetam (Keppra) 500 mg PO Q12 [facility] Metoprolol Tartrate (Lopressor) 25 mg PO Q12 [facility] Pantoprazole Sodium (Protonix Susp) 40 mg GT DAILY [facility] Last Admin: 08/24/16 08:35 Dose: 40 mg Thiamine HCl (Vitamin B1 Tab) 100 mg PO DAILY [facility] Last Admin: 08/24/16 08:32 Dose: 100 mg - Labs Labs: - Additional Findings Additional findings: - Constitutional Appears: unresponsive and on the vent. - ENT Exam Additional comments: ET and NGT in place - Respiratory Exam Additional comments: on the vent - Cardiovascular Exam Cardiovascular Exam: RRR, +S1, +S2 - GI/Abdominal Exam GI & Abdominal Exam: Soft, Normal Bowel Sounds Additional comments: Nt, ND - Extremities Exam Additional comments: no edema b/l LE - Neurological Exam Additional comments: lethargic, non-responsive Laboratory Results - last 72 hr 08/21/16 08/21/16 08/21/16 18:18 20:00 20:15 WBC RBC Hgb Hct MCV MCH MCHC RDW Plt Count MPV Neut % (Auto) Lymph % (Auto) Chester % (Auto) Eos % (Auto) Baso % (Auto) Neut # Lymph # Chester # Eos # Baso # Neutrophils % (Manual) Lymphocytes % (Manual) Monocytes % (Manual) Platelet Estimate Anisocytosis (manual) Macrocytosis (manual) pCO2 23 L 26 L pO2 58 L 173 H HCO3 26.4 26.3 ABG pH 7.60 H 7.56 H ABG Total CO2 23.3 24.1 ABG O2 Saturation 96.6 99.2 H ABG O2 Content 13.5 L 14.7 L ABG Base Excess 2.0 1.8 ABG Hemoglobin 10.3 L 10.6 L ABG Carboxyhemoglobin 2.1 H 1.6 H POC ABG HHb (Measured) 3.3 0.8 ABG Methemoglobin 1.4 1.4 ABG O2 Capacity 14.0 L 14.8 L Ezra Test Yes Yes A-a O2 Difference 141.0 151.0 Hgb O2 Saturation 93.2 L 96.3 Liter Flow 3 Vent Mode Nc Prvc/ac Mechanical Rate 12 FiO2 32.0 50.0 Tidal Volume 500 PEEP 5 Sodium Potassium Chloride Carbon Dioxide Anion Gap BUN Creatinine Est GFR ( Amer) Est GFR (Non-Af Amer) POC Glucose (mg/dL) Random Glucose Serum Osmolality 315 H Calcium Phosphorus Magnesium Total Bilirubin AST ALT Alkaline Phosphatase Total Creatine Kinase Troponin I Total Protein Albumin Globulin Albumin/Globulin Ratio Procalcitonin 08/21/16 08/22/16 08/22/16 22:47 04:20 04:20 WBC 9.0 RBC 2.93 L Hgb 10.3 L Hct 31.0 L MCV 106.0 H D MCH 35.3 H MCHC 33.3 RDW 16.1 H Plt Count 99 L MPV Neut % (Auto) Lymph % (Auto) Chester % (Auto) Eos % (Auto) Baso % (Auto) Neut # Lymph # Chester # Eos # Baso # Neutrophils % (Manual) Lymphocytes % (Manual) Monocytes % (Manual) Platelet Estimate Anisocytosis (manual) Macrocytosis (manual) pCO2 pO2 HCO3 ABG pH ABG Total CO2 ABG O2 Saturation ABG O2 Content ABG Base Excess ABG Hemoglobin ABG Carboxyhemoglobin POC ABG HHb (Measured) ABG Methemoglobin ABG O2 Capacity Ezra Test A-a O2 Difference Hgb O2 Saturation Liter Flow Vent Mode Mechanical Rate FiO2 Tidal Volume PEEP Sodium 138 Potassium 3.5 L Chloride 107 Carbon Dioxide 23 Anion Gap 12 BUN 27 H Creatinine 1.7 H Est GFR ( Amer) 48 Est GFR (Non-Af Amer) 40 POC Glucose (mg/dL) 135 H Random Glucose 110 Serum Osmolality Calcium 7.5 L Phosphorus Magnesium Total Bilirubin AST ALT Alkaline Phosphatase Total Creatine Kinase Troponin I Total Protein Albumin Globulin Albumin/Globulin Ratio Procalcitonin 08/22/16 08/22/16 08/22/16 05:38 06:39 08:15 WBC RBC Hgb Hct MCV MCH MCHC RDW Plt Count MPV Neut % (Auto) Lymph % (Auto) Chester % (Auto) Eos % (Auto) Baso % (Auto) Neut # Lymph # Chester # Eos # Baso # Neutrophils % (Manual) Lymphocytes % (Manual) Monocytes % (Manual) Platelet Estimate Anisocytosis (manual) Macrocytosis (manual) pCO2 31 L pO2 186 H HCO3 26.0 ABG pH 7.50 H ABG Total CO2 25.2 ABG O2 Saturation 99.2 H ABG O2 Content 14.7 L ABG Base Excess 1.4 ABG Hemoglobin 10.5 L ABG Carboxyhemoglobin 1.1 POC ABG HHb (Measured) 0.8 ABG Methemoglobin 1.5 ABG O2 Capacity 14.8 L Ezra Test Yes A-a O2 Difference 132.0 Hgb O2 Saturation 96.5 Liter Flow Vent Mode A/c Mechanical Rate 12 FiO2 50.0 Tidal Volume 500 PEEP 5 Sodium Potassium Chloride Carbon Dioxide Anion Gap BUN Creatinine Est GFR ( Amer) Est GFR (Non-Af Amer) POC Glucose (mg/dL) 122 H Random Glucose Serum Osmolality 332 H Calcium Phosphorus Magnesium Total Bilirubin AST ALT Alkaline Phosphatase Total Creatine Kinase Troponin I Total Protein Albumin Globulin Albumin/Globulin Ratio Procalcitonin 08/22/16 08/22/16 08/22/16 09:10 09:10 20:30 WBC RBC Hgb Hct MCV MCH MCHC RDW Plt Count MPV Neut % (Auto) Lymph % (Auto) Chester % (Auto) Eos % (Auto) Baso % (Auto) Neut # Lymph # Chester # Eos # Baso # Neutrophils % (Manual) Lymphocytes % (Manual) Monocytes % (Manual) Platelet Estimate Anisocytosis (manual) Macrocytosis (manual) pCO2 pO2 HCO3 ABG pH ABG Total CO2 ABG O2 Saturation ABG O2 Content ABG Base Excess ABG Hemoglobin ABG Carboxyhemoglobin POC ABG HHb (Measured) ABG Methemoglobin ABG O2 Capacity Ezra Test A-a O2 Difference Hgb O2 Saturation Liter Flow Vent Mode Mechanical Rate FiO2 Tidal Volume PEEP Sodium Potassium Chloride Carbon Dioxide Anion Gap BUN Creatinine Est GFR ( Amer) Est GFR (Non-Af Amer) POC Glucose (mg/dL) Random Glucose Serum Osmolality 321 H Calcium Phosphorus Magnesium Total Bilirubin AST ALT Alkaline Phosphatase Total Creatine Kinase 111 Troponin I 0.5440 H* Total Protein Albumin Globulin Albumin/Globulin Ratio Procalcitonin 0.14 L 08/23/16 08/23/16 08/23/16 04:20 04:20 04:20 WBC 11.8 H RBC 3.15 L Hgb 11.0 L Hct 33.9 L MCV 107.5 H MCH 34.8 H MCHC 32.3 L RDW 15.7 H Plt Count 102 L MPV Neut % (Auto) Lymph % (Auto) Chester % (Auto) Eos % (Auto) Baso % (Auto) Neut # Lymph # Chester # Eos # Baso # Neutrophils % (Manual) Lymphocytes % (Manual) Monocytes % (Manual) Platelet Estimate Anisocytosis (manual) Macrocytosis (manual) pCO2 pO2 HCO3 ABG pH ABG Total CO2 ABG O2 Saturation ABG O2 Content ABG Base Excess ABG Hemoglobin ABG Carboxyhemoglobin POC ABG HHb (Measured) ABG Methemoglobin ABG O2 Capacity Ezra Test A-a O2 Difference Hgb O2 Saturation Liter Flow Vent Mode Mechanical Rate FiO2 Tidal Volume PEEP Sodium 148 Potassium 3.8 Chloride 114 H Carbon Dioxide 25 Anion Gap 13 BUN 35 H Creatinine 2.0 H Est GFR ( Amer) 40 Est GFR (Non-Af Amer) 33 POC Glucose (mg/dL) Random Glucose 150 H Serum Osmolality 329 H Calcium 8.2 L Phosphorus 4.2 Magnesium 2.3 Total Bilirubin 1.1 AST 50 ALT 53 Alkaline Phosphatase 69 Total Creatine Kinase Troponin I 0.4170 H* Total Protein 7.0 Albumin 3.2 L Globulin 3.8 Albumin/Globulin Ratio 0.8 L Procalcitonin 08/23/16 08/23/16 08/23/16 05:36 06:05 16:15 WBC RBC Hgb Hct MCV MCH MCHC RDW Plt Count MPV Neut % (Auto) Lymph % (Auto) Chester % (Auto) Eos % (Auto) Baso % (Auto) Neut # Lymph # Chester # Eos # Baso # Neutrophils % (Manual) Lymphocytes % (Manual) Monocytes % (Manual) Platelet Estimate Anisocytosis (manual) Macrocytosis (manual) pCO2 32 L pO2 135 H HCO3 27.7 ABG pH 7.52 H ABG Total CO2 27.1 ABG O2 Saturation 99.4 H ABG O2 Content 15.1 ABG Base Excess 3.5 H ABG Hemoglobin 10.9 L ABG Carboxyhemoglobin 1.4 POC ABG HHb (Measured) 0.6 ABG Methemoglobin 1.4 ABG O2 Capacity 15.2 L Ezra Test Yes A-a O2 Difference 110.0 Hgb O2 Saturation 96.6 Liter Flow Vent Mode Prvc ac Mechanical Rate 12 FiO2 40.0 Tidal Volume 500 PEEP 5 Sodium Potassium Chloride Carbon Dioxide Anion Gap BUN Creatinine Est GFR ( Amer) Est GFR (Non-Af Amer) POC Glucose (mg/dL) 141 H Random Glucose Serum Osmolality Calcium Phosphorus Magnesium Total Bilirubin AST ALT Alkaline Phosphatase Total Creatine Kinase Troponin I 0.2840 H* Total Protein Albumin Globulin Albumin/Globulin Ratio Procalcitonin 08/24/16 08/24/16 08/24/16 05:00 05:00 05:10 WBC 12.2 H RBC 3.09 L Hgb 10.6 L Hct 33.2 L MCV 107.6 H MCH 34.3 H MCHC 31.9 L RDW 15.4 H Plt Count 109 L MPV 11.5 Neut % (Auto) 79.8 H Lymph % (Auto) 5.4 L Chester % (Auto) 13.7 H Eos % (Auto) 0.6 Baso % (Auto) 0.5 Neut # 9.7 H Lymph # 0.7 L Chester # 1.7 H Eos # 0.1 Baso # 0.1 Neutrophils % (Manual) 79 H Lymphocytes % (Manual) 6 L Monocytes % (Manual) 15 H Platelet Estimate Decreased L Anisocytosis (manual) Slight Macrocytosis (manual) Moderate pCO2 28 L pO2 148 H HCO3 27.0 ABG pH 7.55 H ABG Total CO2 25.4 ABG O2 Saturation 99.1 H ABG O2 Content 14.8 L ABG Base Excess 2.7 ABG Hemoglobin 10.7 L ABG Carboxyhemoglobin 1.1 POC ABG HHb (Measured) 0.9 ABG Methemoglobin 1.6 ABG O2 Capacity 14.9 L Ezra Test Yes A-a O2 Difference 102.0 Hgb O2 Saturation 96.4 Liter Flow Vent Mode A/c Mechanical Rate 12 FiO2 40.0 Tidal Volume 500 PEEP 5 Sodium 150 H Potassium 3.9 Chloride 118 H Carbon Dioxide 23 Anion Gap 13 BUN 31 H Creatinine 1.6 H Est GFR ( Amer) 52 Est GFR (Non-Af Amer) 43 POC Glucose (mg/dL) Random Glucose 163 H Serum Osmolality Calcium 8.0 L Phosphorus Magnesium Total Bilirubin AST ALT Alkaline Phosphatase Total Creatine Kinase Troponin I Total Protein Albumin Globulin Albumin/Globulin Ratio Procalcitonin 08/24/16 08/24/16 08/24/16 05:28 08:20 12:03 WBC RBC Hgb Hct MCV MCH MCHC RDW Plt Count MPV Neut % (Auto) Lymph % (Auto) Chester % (Auto) Eos % (Auto) Baso % (Auto) Neut # Lymph # Chester # Eos # Baso # Neutrophils % (Manual) Lymphocytes % (Manual) Monocytes % (Manual) Platelet Estimate Anisocytosis (manual) Macrocytosis (manual) pCO2 pO2 HCO3 ABG pH ABG Total CO2 ABG O2 Saturation ABG O2 Content ABG Base Excess ABG Hemoglobin ABG Carboxyhemoglobin POC ABG HHb (Measured) ABG Methemoglobin ABG O2 Capacity Ezra Test A-a O2 Difference Hgb O2 Saturation Liter Flow Vent Mode Mechanical Rate FiO2 Tidal Volume PEEP Sodium Potassium Chloride Carbon Dioxide Anion Gap BUN Creatinine Est GFR ( Amer) Est GFR (Non-Af Amer) POC Glucose (mg/dL) 153 H 140 H Random Glucose Serum Osmolality 321 H Calcium Phosphorus Magnesium Total Bilirubin AST ALT Alkaline Phosphatase Total Creatine Kinase Troponin I Total Protein Albumin Globulin Albumin/Globulin Ratio Procalcitonin Microbiology 08/22/16 09:56 Sputum Gram Stain - Final 08/22/16 09:56 Sputum Sputum Culture - Final NORMAL ORAL YOSELIN 08/20/16 14:38 Blood-Venous Blood Culture - Preliminary NO GROWTH AFTER 4 DAYS 08/19/16 18:30 Blood-Venous Blood Culture - Preliminary NO GROWTH AFTER 4 DAYS 08/19/16 18:20 Blood-Venous Blood Culture - Preliminary NO GROWTH AFTER 4 DAYS 08/20/16 09:45 Urine,Rosa Urine Culture - Final No Growth (<1,000 CFU/ML) 08/19/16 21:00 Naris MRSA Culture (Admit) - Final MRSA NOT DETECTED Accession No. : [id number] Patient Name / ID : RONALD CARDENAS / [id number] Exam Date : 08/24/2016 05:22:33 ( Approved ) Study Comment : Sex / Age : M / 71Y Creator : Lori Soares MD Dictator : Lori Soares MD Workers Compensation Claims Assistant : Dog Track Kennel Manager : Lori Soares MD Approver2 : Report Date : 08/24/2016 09:30:41 My Comment : HISTORY: on vent COMPARISON: 08/23/2016 FINDINGS: The endotracheal tube terminates 5.4 cm proximal to the hollie. The nasogastric tube terminates in the stomach. LUNGS: The lungs are well inflated. There is subsegmental atelectasis in the left lung base. No focal consolidation. PLEURA: No significant pleural effusion identified, no pneumothorax apparent. CARDIOVASCULAR: There is mild cardiomegaly. Status post CABG. Atherosclerotic aortic arch calcifications are present. OSSEOUS STRUCTURES: No significant abnormalities. VISUALIZED UPPER ABDOMEN: Normal. OTHER FINDINGS: None. IMPRESSION: Stable position of endotracheal and nasogastric tubes. No acute findings. Assessment and Plan (1) Seizure disorder Status: Acute (2) CVA (cerebral vascular accident) Status: Acute (3) CHF (congestive heart failure) Status: Acute (4) Atrial fibrillation with RVR Status: Acute - Assessment and Plan (Free Text) Assessment: A/p 71 year old amle with multiple medical conditions including CVA, seizure disorder, CAD, CHF a.fib was admitted for seizures and found to have high lactate and temp of 102 in ED. pt. has clinically worsened and is lethargic and on vent continues to have fevers and is most likely central fevers. all blood and urine cx are negative normal procalcitonin level. CXR- negative as per report. 1. seizure 2. hemorragic CVA 3.Acutre renal insufficiency plan- No objection to continuing with the empiric zosyn that was already initiated by the primary team to cover for possible pneumonitis..( renal dose) day #5. seizure and Brain Hemorrhage management as per neurologist and neurosurgeon and ICU team. prognosis poor. Possible terminal extubation as per pt's family . 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 ICU time 45 min.
[2016-08-24] MEDS ORDERED: Labetalol 5 mg/ml Inj 20ML IVP STA (16:24)
[2016-08-24] MEDS ORDERED: levETIRAcetam 100 mg/ml (5ml) Oral Syringe PO SCH (17:00)
--- NOTE | 2016-08-24 18:48 | CP.PCM.PN ---
Subjective - Date & Time of Evaluation Date of Evaluation: 08/24/16 Time of Evaluation: 18:10 - Subjective Subjective: REMAIN COMATOSED PUPIL SLUGGISH AND ASYMMETRIC CORNEAL PRESENT GAG IMPAIRED AREFLEXIC PLANTAR UP LABOURED BREATHING POOR PROGNOSIS DNR Objective - Vital Signs/Intake and Output Vital Signs (last 24 hours): Temp Pulse Resp BP Pulse Ox 102.5 F H 89 25 H 108/58 L 100 08/24/16 16:18 08/24/16 18:00 08/24/16 18:00 08/24/16 18:00 08/24/16 18:00 Intake and Output: 08/24/16 08/24/16 06:59 18:59 Intake Total 1140 1644 Output Total 550 650 Balance 590 994 - Medications Medications: Current Medications Acetaminophen (Tylenol 650mg/20.3ml Solution Ud) 650 mg PO Q6 PRN PRN Reason: Temperature Last Admin: 08/24/16 16:18 Dose: 650 mg Atorvastatin Calcium (Lipitor) 40 mg PO DAILY [facility] Last Admin: 08/24/16 08:33 Dose: 40 mg Enalapril Maleate (Vasotec) 2.5 mg PO DAILY [facility] Last Admin: 08/24/16 08:33 Dose: 2.5 mg Folic Acid (Folic Acid) 1 mg PO DAILY [facility] Last Admin: 08/24/16 08:34 Dose: 1 mg Piperacillin Sod/Tazobactam (Sod 2.25 gm/ Sodium Chloride) 100 mls @ 100 mls/ hr IVPB Q6 [facility] Last Admin: 08/24/16 16:19 Dose: 100 mls/hr Levetiracetam (Keppra) 500 mg PO Q12 [facility] Metoprolol Tartrate (Lopressor) 25 mg PO Q12 [facility] Pantoprazole Sodium (Protonix Susp) 40 mg GT DAILY [facility] Last Admin: 08/24/16 08:35 Dose: 40 mg Thiamine HCl (Vitamin B1 Tab) 100 mg PO DAILY [facility] Last Admin: 08/24/16 08:32 Dose: 100 mg - Labs Labs: 08/24/16 05:00 08/24/16 05:00 PT 10.8 Seconds (9.8-13.1) 08/19/16 18:00 INR 1.0 (0.9-1.2) 08/19/16 18:00 APTT 22.9 Seconds (25.6-37.1) L 08/19/16 18:00 Assessment and Plan (1) Alcohol abuse with alcohol-induced disorder Status: Acute
[2016-08-24] MEDS: levETIRAcetam 100 mg/ml (5ml) Oral Syringe PO SCH (22:18)
[2016-08-25] MEDS: Acetaminophen 650mg/20.3ml solution UD PO PRN ×2 (00:13→08:35)
[2016-08-25 05:24] LABS: BASO # 0.1 K/uL (0.0-0.2); BASO % 0.5 % (0.0-2.0); EOS % 0.3 % (0.0-4.0); HEMOGLOBIN 10.5 g/dL (12.0-18.0); LYMPH # 0.9 K/uL (1.0-4.3); LYMPH % 6.7 % (20.0-40.0); MEAN CELL VOLUME 106.7 fl (80.0-94.0); MEAN CORPUSCULAR HEMOGLOBIN 34.5 pg (27.0-31.0); MEAN CORPUSCULAR HGB CONC 32.3 g/dL (33.0-37.0); MEAN PLATELET VOLUME 11.5 fl (7.2-11.7); MONO # 2.1 K/uL (0.0-0.8); MONO % 14.6 % (0.0-10.0); NEUT % 77.9 % (50.0-75.0); NRBC % 0.1 % (0.0-0.0); RBC 3.05 Mil/uL (4.40-5.90); RED CELL DISTRIBUTION WIDTH 15.4 % (11.5-14.5); WHITE BLOOD COUNT 14.1 K/uL (4.8-10.8)
[2016-08-25 05:35] LABS: ALB/GLOB RATIO 0.9 (1.0-2.1); ALBUMIN 3.1 g/dL (3.5-5.0)
--- NOTE | 2016-08-25 07:10 | CP.PCM.PN ---
Subjective - Date & Time of Evaluation Date of Evaluation: 08/25/16 Time of Evaluation: 14:00 - Subjective Subjective: Patient seen bedside. Poor prognosis, unresponsive to verbal or noxious stimuli. Febrile Tmax 103 with labored breathing Terminally extubated DNR/DNI For hospice care Objective - Vital Signs/Intake and Output Vital Signs (last 24 hours): Temp Pulse Resp BP Pulse Ox 100.3 F H 98 H 25 H 160/91 H 100 08/25/16 04:00 08/25/16 06:00 08/25/16 06:00 08/25/16 06:00 08/25/16 06:00 Intake and Output: 08/25/16 08/25/16 06:59 18:59 Intake Total 1380 Output Total 420 Balance 960 - Medications Medications: Current Medications Acetaminophen (Tylenol 650mg/20.3ml Solution Ud) 650 mg PO Q6 PRN PRN Reason: Temperature Last Admin: 08/25/16 00:13 Dose: 650 mg Atorvastatin Calcium (Lipitor) 40 mg PO DAILY [facility] Last Admin: 08/24/16 08:33 Dose: 40 mg Enalapril Maleate (Vasotec) 2.5 mg PO DAILY [facility] Last Admin: 08/24/16 08:33 Dose: 2.5 mg Folic Acid (Folic Acid) 1 mg PO DAILY [facility] Last Admin: 08/24/16 08:34 Dose: 1 mg Piperacillin Sod/Tazobactam (Sod 2.25 gm/ Sodium Chloride) 100 mls @ 100 mls/ hr IVPB Q6 [facility] Last Admin: 08/25/16 03:27 Dose: 100 mls/hr Levetiracetam (Keppra) 500 mg PO Q12 [facility] Last Admin: 08/24/16 22:18 Dose: 500 mg Metoprolol Tartrate (Lopressor) 25 mg PO Q12 [facility] Last Admin: 08/24/16 21:30 Dose: 25 mg Pantoprazole Sodium (Protonix Susp) 40 mg GT DAILY [facility] Last Admin: 08/24/16 08:35 Dose: 40 mg Thiamine HCl (Vitamin B1 Tab) 100 mg PO DAILY [facility] Last Admin: 08/24/16 08:32 Dose: 100 mg - Labs Labs: 08/25/16 05:00 08/25/16 05:00 PT 10.8 Seconds (9.8-13.1) 08/19/16 18:00 INR 1.0 (0.9-1.2) 08/19/16 18:00 APTT 22.9 Seconds (25.6-37.1) L 08/19/16 18:00 - Constitutional Appears: Toxic, In Acute Distress (labored breathing ), Other (not responsive to verbal or noxious stimuli) - Head Exam Head Exam: NORMOCEPHALIC - Eye Exam Pupil Exam: Mydriatic (responsive to light ) - ENT Exam ENT Exam: Mucous Membranes Dry - Neck Exam Neck Exam: Normal Inspection - Respiratory Exam Respiratory Exam: Accessory Muscle Use, Decreased Breath Sounds (bibasilar ), Prolonged Expiratory Phase, Rhonchi, Respiratory Distress. absent: Wheezes - Cardiovascular Exam Cardiovascular Exam: Irregular Rhythm. absent: JVD - GI/Abdominal Exam GI & Abdominal Exam: Soft. absent: Distended, Guarding, Rebound - Rectal Exam Rectal Exam: Deferred - Extremities Exam Extremities Exam: absent: Pedal Edema - Neurological Exam Additional comments: comatose unresponsive to verbal or noxious stimuli quadriplegic - Skin Skin Exam: Pallor, Warm Assessment and Plan - Assessment and Plan (Free Text) Assessment: 71 years old male with hx of non compliance with medication, CVA, CAD s/p CABG, CHF, Alcohol abuse with intoxication, A Fib, and Seizure was brought from home to the ED because of 3 episodes of witnessed seizures. In the ED patient was found to be in A Fib with RVR, Temperature of 102F, Dysarthric, with left sided weakness and a NIHSS of 13. CT head in ER showed old CVA and no acute infarct or bleed. Neurology was consulted and patient started on ASA, Lovenox therapeutic , lipitor and cardizem drip for rate control. MRI of the brain performed 12 hours from presentation showed large right parietal area bleed. ASa , lovenox were held and Vitamin K and platelet ordered to reverse their effect. Neurology and neurosurgery informed. He was given 1 dose DDAVP , started on Mannitol drip and Keppra for seizure. Neurologically patient worsened. He was intubated for airway protection but eventually became comatose, unresponsive to verbal or noxious stimuli, quadriplegic . After discussion with family they decided for terminal extubation and palliative / comfort care. Patient was extubated today and hospice was consulted . 1. Intracranial Bleed unresponsive to pain or noxious stimuli, comatose initial CT head showed old CVA , no bleed no acute stroke MRI head showed :Large right parietal hemorrhage with edema Follow up CT showed 5x7x 6.3 right parietal intraparenchymal hemorrhage , extensive edema with midline shift Neurology and neurosurgery were consulted Patient is not a surgical candidate ASA and lovenox held Vitamin K , Platelet transfusion given DDAVP 1 dose was given as well as Mannitol to decrease the intra cerebral edema- on hold , restart if Osm less than 320 on Keppra for seizure Was intubated for airway protection and today terminally extubated Daughter Renetta who is POA . Family wants in hospital hospice care 2. Seizure episodes most likely due to new CVA had episodes of focal tremors to RUE MRI with large right parietal bleed Neurology consulted . Dr. Celestin started on Keppra for seizure ativan PRN Thiamine, folic acid , MVI 3. Suspected Aspiration Pneumonia-- less likely Tmax [address] Rodriguez Hog Trader ID consult appreciated Continue Zosyn empirically blood and sputum cx with no growth rpt CXR 08/24 :no focal consolidation 4. Suspected Sepsis- unlikely - ruled out procalcitonin - normal Cultures with no growth repeat CXR showed no infiltrate Continue Zosyn lactic acid elevation most likely secondary to tissue hypoperfusion and seizure episodes consult with Dr Tello ID appreciated 5. A Fib with RVR now rate controlled Cardizem drip discontinued on Metoprolo no anticoagulation due to intracranial bleed cardiology consult with Dr James appreciated Echo showed LVH and decreased EF 35-40 % 6. Elevated Troponin probably related to Afib with RVR less likely NSTEMI cardiology consulted Echo showed EF 35-40 % on lopressor d/c ASA due to intracranial bleed 7. Chronic CHF systolic dysfunction Cardiology consulted EF 35 -40 % on Lopressor and enalapril 8. JONELLE Most likely prerenal 9. DM ruled out HbA1c 5.4 10. Chronic Thrombocytopenia Most likely related to ETOH abuse 11. Stress ulcer prophylaxis pantoprazole 12. DVT Prophylaxis SCD d/c lovenox 13. Hypokalemia replaced with KCl 14. History of ETOH dependence / alcoholism ETOH levels < 10 started thiamine, Folic acid Ativan PRN for seizure 15. Feeding Jevity via NGT
--- NOTE | 2016-08-25 08:00 | CP.CCUPN ---
CCU Subjective - Physician Review Events Since Last Encounter (Free Text): 08/25/16 07:58 Patient on ventilator, on PRVC TV 500, RR 12, FIO2 40%, no response to verbal stimuli, on NG feeding, events reviewed CCU Objective - Vital Signs / Intake & Output Vital Signs (Last 4 hours): Vital Signs Temp Pulse Resp BP Pulse Ox 08/25/16 06:00 98 H 25 H 160/91 H 100 08/25/16 04:00 100.3 F H 94 H 27 H 144/93 H 100 Intake and Output (Last 8hrs): Intake & Output 08/24/16 08/25/16 08/25/16 22:59 06:59 14:59 Intake Total 920 990 Output Total 700 370 Balance 220 620 Intake: IV 100 130 Intake, Piggyback 100 Tube Feeding 420 560 Free Water Flush 300 300 Output: Gastric Amount 0 20 Right Nares 0 20 Urine 700 350 Urethral (Rosa) 700 350 - Physical Exam Head: Positive for: Atraumatic, Normocephalic Pupils: Positive for: PERRL Mouth: Positive for: Dry Nose (Internal): Positive for: Normal Inspection Respiratory/Chest: Positive for: Clear to Auscultation, Good Air Exchange Cardiovascular: Positive for: Normal S1, S2, Irregular Rhythm. Negative for: Murmurs Abdomen: Positive for: Normal Bowel Sounds. Negative for: Tenderness, Distention, Rebound Upper Extremity: Positive for: NORMAL PULSES, Other (Pt is not resoponding to commands today. No resting tremmor seen). Negative for: Edema Neurological: Positive for: Other (No response to verbal stimuli). Negative for : Speech Normal Skin: Positive for: Warm, Normal Color Psychiatric: Positive for: Other (No response to verbal stimuli) - Medications Active Medications: Active Medications Generic Name Dose Route Start Last Admin Trade Name Freq PRN Reason Stop Dose Admin Acetaminophen 650 mg 08/22/16 13:07 08/25/16 00:13 Tylenol 650mg/20.3ml Solution Ud PO 650 mg Q6 PRN Administration Temperature Atorvastatin Calcium 40 mg 08/20/16 15:00 08/24/16 08:33 Lipitor PO 40 mg DAILY ROBERT Administration Enalapril Maleate 2.5 mg 08/21/16 16:30 08/24/16 08:33 Vasotec PO 2.5 mg DAILY ROBERT Administration Folic Acid 1 mg 08/21/16 09:00 08/24/16 08:34 Folic Acid PO 1 mg DAILY ROBERT Administration Piperacillin Sod/Tazobactam 100 mls @ 100 mls/hr 08/20/16 16:00 08/25/16 03: 27 Sod 2.25 gm/ Sodium Chloride IVPB 100 mls/hr Q6 ROBERT Administration Levetiracetam 500 mg 08/24/16 21:00 08/24/16 22:18 Keppra PO 500 mg Q12 ROBERT Administration Metoprolol Tartrate 25 mg 08/24/16 21:00 08/24/16 21:30 Lopressor PO 25 mg Q12 ROBERT Administration Pantoprazole Sodium 40 mg 08/23/16 09:00 08/24/16 08:35 Protonix Susp GT 40 mg DAILY ROBERT Administration Thiamine HCl 100 mg 08/21/16 09:00 08/24/16 08:32 Vitamin B1 Tab PO 100 mg DAILY ROBERT Administration - Patient Studies Lab Studies: Microbiology Studies 08/22/16 09:56 Gram Stain - Final Sputum Sputum Culture - Final NORMAL ORAL YOSELIN 08/20/16 14:38 Blood Culture - Preliminary Blood-Venous NO GROWTH AFTER 4 DAYS Lab Studies 08/25/16 08/25/16 08/25/16 Range/Units 05:02 05:00 05:00 WBC 14.1 H (4.8-10.8) K/uL RBC 3.05 L (4.40-5.90) Mil/uL Hgb 10.5 L (12.0-18.0) g/dL Hct 32.6 L (35.0-51.0) % MCV 106.7 H (80.0-94.0) fl MCH 34.5 H (27.0-31.0) pg MCHC 32.3 L (33.0-37.0) g/dL RDW 15.4 H (11.5-14.5) % Plt Count 112 L (130-400) K/uL MPV 11.5 (7.2-11.7) fl Neut % (Auto) 77.9 H (50.0-75.0) % Lymph % (Auto) 6.7 L (20.0-40.0) % Woodson % (Auto) 14.6 H (0.0-10.0) % Eos % (Auto) 0.3 (0.0-4.0) % Baso % (Auto) 0.5 (0.0-2.0) % Neut # 11.0 H (1.8-7.0) K/uL Lymph # 0.9 L (1.0-4.3) K/uL Woodson # 2.1 H (0.0-0.8) K/uL Eos # 0.0 (0.0-0.7) K/uL Baso # 0.1 (0.0-0.2) K/uL Neutrophils % (Manual) (42-75) % Lymphocytes % (Manual) (20-50) % Monocytes % (Manual) (0-10) % Platelet Estimate (NORMAL) Anisocytosis (manual) Macrocytosis (manual) Sodium 147 (132-148) mmol/l Potassium 4.3 (3.6-5.0) MMOL/L Chloride 114 H (98-107) mmol/L Carbon Dioxide 26 (22-30) mmol/L Anion Gap 11 (10-20) BUN 31 H (9-20) mg/dl Creatinine 1.6 H (0.8-1.5) mg/dL Est GFR ( Amer) 52 Est GFR (Non-Af Amer) 43 POC Glucose (mg/dL) 134 H (65-110) mg/dL Random Glucose 127 H (75-110) mg/dL Serum Osmolality (272-300) mosm/kg Calcium 8.0 L (8.4-10.2) mg/dL Total Bilirubin 1.1 (0.2-1.3) mg/dl AST 58 (17-59) U/L ALT 46 (21-72) U/L Alkaline Phosphatase 51 (38-126) U/L Total Protein 6.8 (6.3-8.2) G/DL Albumin 3.1 L (3.5-5.0) g/dL Globulin 3.6 (2.2-3.9) gm/dL Albumin/Globulin Ratio 0.9 L (1.0-2.1) 08/24/16 08/24/16 08/24/16 Range/Units 21:53 17:54 12:03 WBC (4.8-10.8) K/uL RBC (4.40-5.90) Mil/uL Hgb (12.0-18.0) g/dL Hct (35.0-51.0) % MCV (80.0-94.0) fl MCH (27.0-31.0) pg MCHC (33.0-37.0) g/dL RDW (11.5-14.5) % Plt Count (130-400) K/uL MPV (7.2-11.7) fl Neut % (Auto) (50.0-75.0) % Lymph % (Auto) (20.0-40.0) % Woodson % (Auto) (0.0-10.0) % Eos % (Auto) (0.0-4.0) % Baso % (Auto) (0.0-2.0) % Neut # (1.8-7.0) K/uL Lymph # (1.0-4.3) K/uL Woodson # (0.0-0.8) K/uL Eos # (0.0-0.7) K/uL Baso # (0.0-0.2) K/uL Neutrophils % (Manual) (42-75) % Lymphocytes % (Manual) (20-50) % Monocytes % (Manual) (0-10) % Platelet Estimate (NORMAL) Anisocytosis (manual) Macrocytosis (manual) Sodium (132-148) mmol/l Potassium (3.6-5.0) MMOL/L Chloride (98-107) mmol/L Carbon Dioxide (22-30) mmol/L Anion Gap (10-20) BUN (9-20) mg/dl Creatinine (0.8-1.5) mg/dL Est GFR ( Amer) Est GFR (Non-Af Amer) POC Glucose (mg/dL) 139 H 163 H 140 H (65-110) mg/dL Random Glucose (75-110) mg/dL Serum Osmolality (272-300) mosm/kg Calcium (8.4-10.2) mg/dL Total Bilirubin (0.2-1.3) mg/dl AST (17-59) U/L ALT (21-72) U/L Alkaline Phosphatase (38-126) U/L Total Protein (6.3-8.2) G/DL Albumin (3.5-5.0) g/dL Globulin (2.2-3.9) gm/dL Albumin/Globulin Ratio (1.0-2.1) 08/24/16 08/24/16 Range/Units 08:20 05:00 WBC (4.8-10.8) K/uL RBC (4.40-5.90) Mil/uL Hgb (12.0-18.0) g/dL Hct (35.0-51.0) % MCV (80.0-94.0) fl MCH (27.0-31.0) pg MCHC (33.0-37.0) g/dL RDW (11.5-14.5) % Plt Count (130-400) K/uL MPV (7.2-11.7) fl Neut % (Auto) (50.0-75.0) % Lymph % (Auto) (20.0-40.0) % Woodson % (Auto) (0.0-10.0) % Eos % (Auto) (0.0-4.0) % Baso % (Auto) (0.0-2.0) % Neut # (1.8-7.0) K/uL Lymph # (1.0-4.3) K/uL Woodson # (0.0-0.8) K/uL Eos # (0.0-0.7) K/uL Baso # (0.0-0.2) K/uL Neutrophils % (Manual) 79 H (42-75) % Lymphocytes % (Manual) 6 L (20-50) % Monocytes % (Manual) 15 H (0-10) % Platelet Estimate Decreased L (NORMAL) Anisocytosis (manual) Slight Macrocytosis (manual) Moderate Sodium (132-148) mmol/l Potassium (3.6-5.0) MMOL/L Chloride (98-107) mmol/L Carbon Dioxide (22-30) mmol/L Anion Gap (10-20) BUN (9-20) mg/dl Creatinine (0.8-1.5) mg/dL Est GFR ( Amer) Est GFR (Non-Af Amer) POC Glucose (mg/dL) (65-110) mg/dL Random Glucose (75-110) mg/dL Serum Osmolality 321 H (272-300) mosm/kg Calcium (8.4-10.2) mg/dL Total Bilirubin (0.2-1.3) mg/dl AST (17-59) U/L ALT (21-72) U/L Alkaline Phosphatase (38-126) U/L Total Protein (6.3-8.2) G/DL Albumin (3.5-5.0) g/dL Globulin (2.2-3.9) gm/dL Albumin/Globulin Ratio (1.0-2.1) Laboratory Results - last 24 hr 08/24/16 08/24/16 08/24/16 05:00 08:20 12:03 WBC RBC Hgb Hct MCV MCH MCHC RDW Plt Count MPV Neut % (Auto) Lymph % (Auto) Woodson % (Auto) Eos % (Auto) Baso % (Auto) Neut # Lymph # Woodson # Eos # Baso # Neutrophils % (Manual) 79 H Lymphocytes % (Manual) 6 L Monocytes % (Manual) 15 H Platelet Estimate Decreased L Anisocytosis (manual) Slight Macrocytosis (manual) Moderate Sodium Potassium Chloride Carbon Dioxide Anion Gap BUN Creatinine Est GFR ( Amer) Est GFR (Non-Af Amer) POC Glucose (mg/dL) 140 H Random Glucose Serum Osmolality 321 H Calcium Total Bilirubin AST ALT Alkaline Phosphatase Total Protein Albumin Globulin Albumin/Globulin Ratio 08/24/16 08/24/16 08/25/16 17:54 21:53 05:00 WBC 14.1 H RBC 3.05 L Hgb 10.5 L Hct 32.6 L MCV 106.7 H MCH 34.5 H MCHC 32.3 L RDW 15.4 H Plt Count 112 L MPV 11.5 Neut % (Auto) 77.9 H Lymph % (Auto) 6.7 L Woodson % (Auto) 14.6 H Eos % (Auto) 0.3 Baso % (Auto) 0.5 Neut # 11.0 H Lymph # 0.9 L Woodson # 2.1 H Eos # 0.0 Baso # 0.1 Neutrophils % (Manual) Lymphocytes % (Manual) Monocytes % (Manual) Platelet Estimate Anisocytosis (manual) Macrocytosis (manual) Sodium Potassium Chloride Carbon Dioxide Anion Gap BUN Creatinine Est GFR ( Amer) Est GFR (Non-Af Amer) POC Glucose (mg/dL) 163 H 139 H Random Glucose Serum Osmolality Calcium Total Bilirubin AST ALT Alkaline Phosphatase Total Protein Albumin Globulin Albumin/Globulin Ratio 08/25/16 08/25/16 05:00 05:02 WBC RBC Hgb Hct MCV MCH MCHC RDW Plt Count MPV Neut % (Auto) Lymph % (Auto) Woodson % (Auto) Eos % (Auto) Baso % (Auto) Neut # Lymph # Woodson # Eos # Baso # Neutrophils % (Manual) Lymphocytes % (Manual) Monocytes % (Manual) Platelet Estimate Anisocytosis (manual) Macrocytosis (manual) Sodium 147 Potassium 4.3 Chloride 114 H Carbon Dioxide 26 Anion Gap 11 BUN 31 H Creatinine 1.6 H Est GFR ( Amer) 52 Est GFR (Non-Af Amer) 43 POC Glucose (mg/dL) 134 H Random Glucose 127 H Serum Osmolality Calcium 8.0 L Total Bilirubin 1.1 AST 58 ALT 46 Alkaline Phosphatase 51 Total Protein 6.8 Albumin 3.1 L Globulin 3.6 Albumin/Globulin Ratio 0.9 L Fingerstick Blood Sugar Results: 134 Assessment/Plan - Assessment and Plan (Free Text) Assessment: A/P Respiratory failure, CVA with hemorrhagic conversion, seizer, A Fib, JONELLE, asp. pneumonia, elevated troponin - Ventilatory support - pulmonary toilets - Continue meds - OG feeding - Poor prognosis Critical care 35 min
[2016-08-25] MEDS: levETIRAcetam 100 mg/ml (5ml) Oral Syringe PO SCH (08:32)
[2016-08-25] MEDS: Pantoprazole 40 mg Susp UD GT SCH (08:33)
--- NOTE | 2016-08-25 13:57 | CP.PCM.PN ---
Subjective - Date & Time of Evaluation Date of Evaluation: 08/25/16 Time of Evaluation: 13:57 - Subjective Subjective: ID Note- Pt. seen and examined today in ICU. remains not responsive and on the ventilator. continues to have fever spikes despite being on abd and despite all cultures being negative. as per nurse pt's family may make decision for terminal extubation today. Objective - Vital Signs/Intake and Output Vital Signs (last 24 hours): Temp Pulse Resp BP Pulse Ox 102.7 F H 93 H 25 H 101/53 L 100 08/25/16 12:00 08/25/16 12:00 08/25/16 12:00 08/25/16 12:00 08/25/16 12:00 Intake and Output: 08/25/16 08/25/16 06:59 18:59 Intake Total 1380 674 Output Total 420 Balance 960 674 - Medications Medications: Current Medications Acetaminophen (Tylenol 650mg/20.3ml Solution Ud) 650 mg PO Q6 PRN PRN Reason: Temperature Last Admin: 08/25/16 08:35 Dose: 650 mg Atorvastatin Calcium (Lipitor) 40 mg PO DAILY [facility] Last Admin: 08/25/16 08:32 Dose: 40 mg Enalapril Maleate (Vasotec) 2.5 mg PO DAILY [facility] Last Admin: 08/25/16 08:33 Dose: 2.5 mg Folic Acid (Folic Acid) 1 mg PO DAILY [facility] Last Admin: 08/25/16 08:32 Dose: 1 mg Piperacillin Sod/Tazobactam (Sod 2.25 gm/ Sodium Chloride) 100 mls @ 100 mls/ hr IVPB Q6 [facility] Last Admin: 08/25/16 09:00 Dose: 100 mls/hr Levetiracetam (Keppra) 500 mg PO Q12 [facility] Last Admin: 08/25/16 08:32 Dose: 500 mg Metoprolol Tartrate (Lopressor) 25 mg PO Q12 [facility] Last Admin: 08/25/16 08:33 Dose: 25 mg Pantoprazole Sodium (Protonix Susp) 40 mg GT DAILY [facility] Last Admin: 08/25/16 08:33 Dose: 40 mg Thiamine HCl (Vitamin B1 Tab) 100 mg PO DAILY [facility] Last Admin: 08/24/16 08:32 Dose: 100 mg - Labs Labs: - Additional Findings Additional findings: - Constitutional Appears: unresponsive and on the vent. - ENT Exam Additional comments: ET and NGT in place - Respiratory Exam Additional comments: on the vent - Cardiovascular Exam Cardiovascular Exam: RRR, +S1, +S2 - GI/Abdominal Exam GI & Abdominal Exam: Soft, Normal Bowel Sounds Additional comments: Nt, ND - Extremities Exam Additional comments: no edema b/l LE - Neurological Exam Additional comments: lethargic, non-responsive Laboratory Results - last 72 hr 08/22/16 08/22/16 08/23/16 09:10 20:30 04:20 WBC RBC Hgb Hct MCV MCH MCHC RDW Plt Count MPV Neut % (Auto) Lymph % (Auto) [place] % (Auto) Eos % (Auto) Baso % (Auto) Neut # Lymph # Bullitt # Eos # Baso # Neutrophils % (Manual) Lymphocytes % (Manual) Monocytes % (Manual) Platelet Estimate Anisocytosis (manual) Macrocytosis (manual) pCO2 pO2 HCO3 ABG pH ABG Total CO2 ABG O2 Saturation ABG O2 Content ABG Base Excess ABG Hemoglobin ABG Carboxyhemoglobin POC ABG HHb (Measured) ABG Methemoglobin ABG O2 Capacity Ezra Test A-a O2 Difference Hgb O2 Saturation Vent Mode Mechanical Rate FiO2 Tidal Volume PEEP Sodium 148 Potassium 3.8 Chloride 114 H Carbon Dioxide 25 Anion Gap 13 BUN 35 H Creatinine 2.0 H Est GFR ( Amer) 40 Est GFR (Non-Af Amer) 33 POC Glucose (mg/dL) Random Glucose 150 H Serum Osmolality 321 H Calcium 8.2 L Phosphorus 4.2 Magnesium 2.3 Total Bilirubin 1.1 AST 50 ALT 53 Alkaline Phosphatase 69 Troponin I 0.4170 H* Total Protein 7.0 Albumin 3.2 L Globulin 3.8 Albumin/Globulin Ratio 0.8 L Procalcitonin 0.14 L 08/23/16 08/23/16 08/23/16 04:20 04:20 05:36 WBC 11.8 H RBC 3.15 L Hgb 11.0 L Hct 33.9 L MCV 107.5 H MCH 34.8 H MCHC 32.3 L RDW 15.7 H Plt Count 102 L MPV Neut % (Auto) Lymph % (Auto) [place] % (Auto) Eos % (Auto) Baso % (Auto) Neut # Lymph # [place] # Eos # Baso # Neutrophils % (Manual) Lymphocytes % (Manual) Monocytes % (Manual) Platelet Estimate Anisocytosis (manual) Macrocytosis (manual) pCO2 32 L pO2 135 H HCO3 27.7 ABG pH 7.52 H ABG Total CO2 27.1 ABG O2 Saturation 99.4 H ABG O2 Content 15.1 ABG Base Excess 3.5 H ABG Hemoglobin 10.9 L ABG Carboxyhemoglobin 1.4 POC ABG HHb (Measured) 0.6 ABG Methemoglobin 1.4 ABG O2 Capacity 15.2 L Ezra Test Yes A-a O2 Difference 110.0 Hgb O2 Saturation 96.6 Vent Mode Prvc ac Mechanical Rate 12 FiO2 40.0 Tidal Volume 500 PEEP 5 Sodium Potassium Chloride Carbon Dioxide Anion Gap BUN Creatinine Est GFR ( Amer) Est GFR (Non-Af Amer) POC Glucose (mg/dL) Random Glucose Serum Osmolality 329 H Calcium Phosphorus Magnesium Total Bilirubin AST ALT Alkaline Phosphatase Troponin I Total Protein Albumin Globulin Albumin/Globulin Ratio Procalcitonin 08/23/16 08/23/16 08/24/16 06:05 16:15 05:00 WBC 12.2 H RBC 3.09 L Hgb 10.6 L Hct 33.2 L MCV 107.6 H MCH 34.3 H MCHC 31.9 L RDW 15.4 H Plt Count 109 L MPV 11.5 Neut % (Auto) 79.8 H Lymph % (Auto) 5.4 L Bull[place] % (Auto) 13.7 H Eos % (Auto) 0.6 Baso % (Auto) 0.5 Neut # 9.7 H Lymph # 0.7 L [place] # 1.7 H Eos # 0.1 Baso # 0.1 Neutrophils % (Manual) 79 H Lymphocytes % (Manual) 6 L Monocytes % (Manual) 15 H Platelet Estimate Decreased L Anisocytosis (manual) Slight Macrocytosis (manual) Moderate pCO2 pO2 HCO3 ABG pH ABG Total CO2 ABG O2 Saturation ABG O2 Content ABG Base Excess ABG Hemoglobin ABG Carboxyhemoglobin POC ABG HHb (Measured) ABG Methemoglobin ABG O2 Capacity Ezra Test A-a O2 Difference Hgb O2 Saturation Vent Mode Mechanical Rate FiO2 Tidal Volume PEEP Sodium Potassium Chloride Carbon Dioxide Anion Gap BUN Creatinine Est GFR ( Amer) Est GFR (Non-Af Amer) POC Glucose (mg/dL) 141 H Random Glucose Serum Osmolality Calcium Phosphorus Magnesium Total Bilirubin AST ALT Alkaline Phosphatase Troponin I 0.2840 H* Total Protein Albumin Globulin Albumin/Globulin Ratio Procalcitonin 08/24/16 08/24/16 08/24/16 05:00 05:10 05:28 WBC RBC Hgb Hct MCV MCH MCHC RDW Plt Count MPV Neut % (Auto) Lymph % (Auto) [place] % (Auto) Eos % (Auto) Baso % (Auto) Neut # Lymph # [place] # Eos # Baso # Neutrophils % (Manual) Lymphocytes % (Manual) Monocytes % (Manual) Platelet Estimate Anisocytosis (manual) Macrocytosis (manual) pCO2 28 L pO2 148 H HCO3 27.0 ABG pH 7.55 H ABG Total CO2 25.4 ABG O2 Saturation 99.1 H ABG O2 Content 14.8 L ABG Base Excess 2.7 ABG Hemoglobin 10.7 L ABG Carboxyhemoglobin 1.1 POC ABG HHb (Measured) 0.9 ABG Methemoglobin 1.6 ABG O2 Capacity 14.9 L Ezra Test Yes A-a O2 Difference 102.0 Hgb O2 Saturation 96.4 Vent Mode A/c Mechanical Rate 12 FiO2 40.0 Tidal Volume 500 PEEP 5 Sodium 150 H Potassium 3.9 Chloride 118 H Carbon Dioxide 23 Anion Gap 13 BUN 31 H Creatinine 1.6 H Est GFR ( Amer) 52 Est GFR (Non-Af Amer) 43 POC Glucose (mg/dL) 153 H Random Glucose 163 H Serum Osmolality Calcium 8.0 L Phosphorus Magnesium Total Bilirubin AST ALT Alkaline Phosphatase Troponin I Total Protein Albumin Globulin Albumin/Globulin Ratio Procalcitonin 08/24/16 08/24/16 08/24/16 08:20 12:03 17:54 WBC RBC Hgb Hct MCV MCH MCHC RDW Plt Count MPV Neut % (Auto) Lymph % (Auto) [place] % (Auto) Eos % (Auto) Baso % (Auto) Neut # Lymph # [place] # Eos # Baso # Neutrophils % (Manual) Lymphocytes % (Manual) Monocytes % (Manual) Platelet Estimate Anisocytosis (manual) Macrocytosis (manual) pCO2 pO2 HCO3 ABG pH ABG Total CO2 ABG O2 Saturation ABG O2 Content ABG Base Excess ABG Hemoglobin ABG Carboxyhemoglobin POC ABG HHb (Measured) ABG Methemoglobin ABG O2 Capacity Ezra Test A-a O2 Difference Hgb O2 Saturation Vent Mode Mechanical Rate FiO2 Tidal Volume PEEP Sodium Potassium Chloride Carbon Dioxide Anion Gap BUN Creatinine Est GFR ( Amer) Est GFR (Non-Af Amer) POC Glucose (mg/dL) 140 H 163 H Random Glucose Serum Osmolality 321 H Calcium Phosphorus Magnesium Total Bilirubin AST ALT Alkaline Phosphatase Troponin I Total Protein Albumin Globulin Albumin/Globulin Ratio Procalcitonin 08/24/16 08/25/16 08/25/16 21:53 05:00 05:00 WBC 14.1 H RBC 3.05 L Hgb 10.5 L Hct 32.6 L MCV 106.7 H MCH 34.5 H MCHC 32.3 L RDW 15.4 H Plt Count 112 L MPV 11.5 Neut % (Auto) 77.9 H Lymph % (Auto) 6.7 L [place] % (Auto) 14.6 H Eos % (Auto) 0.3 Baso % (Auto) 0.5 Neut # 11.0 H Lymph # 0.9 L [place] # 2.1 H Eos # 0.0 Baso # 0.1 Neutrophils % (Manual) Lymphocytes % (Manual) Monocytes % (Manual) Platelet Estimate Anisocytosis (manual) Macrocytosis (manual) pCO2 pO2 HCO3 ABG pH ABG Total CO2 ABG O2 Saturation ABG O2 Content ABG Base Excess ABG Hemoglobin ABG Carboxyhemoglobin POC ABG HHb (Measured) ABG Methemoglobin ABG O2 Capacity Ezra Test A-a O2 Difference Hgb O2 Saturation Vent Mode Mechanical Rate FiO2 Tidal Volume PEEP Sodium 147 Potassium 4.3 Chloride 114 H Carbon Dioxide 26 Anion Gap 11 BUN 31 H Creatinine 1.6 H Est GFR ( Amer) 52 Est GFR (Non-Af Amer) 43 POC Glucose (mg/dL) 139 H Random Glucose 127 H Serum Osmolality Calcium 8.0 L Phosphorus Magnesium Total Bilirubin 1.1 AST 58 ALT 46 Alkaline Phosphatase 51 Troponin I Total Protein 6.8 Albumin 3.1 L Globulin 3.6 Albumin/Globulin Ratio 0.9 L Procalcitonin 08/25/16 05:02 WBC RBC Hgb Hct MCV MCH MCHC RDW Plt Count MPV Neut % (Auto) Lymph % (Auto) [place] % (Auto) Eos % (Auto) Baso % (Auto) Neut # Lymph # [place] # Eos # Baso # Neutrophils % (Manual) Lymphocytes % (Manual) Monocytes % (Manual) Platelet Estimate Anisocytosis (manual) Macrocytosis (manual) pCO2 pO2 HCO3 ABG pH ABG Total CO2 ABG O2 Saturation ABG O2 Content ABG Base Excess ABG Hemoglobin ABG Carboxyhemoglobin POC ABG HHb (Measured) ABG Methemoglobin ABG O2 Capacity Ezra Test A-a O2 Difference Hgb O2 Saturation Vent Mode Mechanical Rate FiO2 Tidal Volume PEEP Sodium Potassium Chloride Carbon Dioxide Anion Gap BUN Creatinine Est GFR ( Amer) Est GFR (Non-Af Amer) POC Glucose (mg/dL) 134 H Random Glucose Serum Osmolality Calcium Phosphorus Magnesium Total Bilirubin AST ALT Alkaline Phosphatase Troponin I Total Protein Albumin Globulin Albumin/Globulin Ratio Procalcitonin Microbiology 08/20/16 14:38 Blood-Venous Blood Culture - Final NO GROWTH AFTER 5 DAYS 08/20/16 14:38 Blood-Venous Gram Stain - Final TEST NOT PERFORMED 08/19/16 18:30 Blood-Venous Blood Culture - Final NO GROWTH AFTER 5 DAYS 08/19/16 18:30 Blood-Venous Gram Stain - Final TEST NOT PERFORMED 08/19/16 18:20 Blood-Venous Blood Culture - Final NO GROWTH AFTER 5 DAYS 08/19/16 18:20 Blood-Venous Gram Stain - Final TEST NOT PERFORMED 08/22/16 09:56 Sputum Gram Stain - Final 08/22/16 09:56 Sputum Sputum Culture - Final NORMAL ORAL YOSELIN 08/20/16 09:45 Urine,Rosa Urine Culture - Final No Growth (<1,000 CFU/ML) 08/19/16 21:00 Naris MRSA Culture (Admit) - Final MRSA NOT DETECTED Accession No. : [id number] Patient Name / ID : RONALD CARDENAS / [id number] Exam Date : 08/24/2016 05:22:33 ( Approved ) Study Comment : Sex / Age : M / 71Y Creator : Lori Soares MD Dictator : Lori Soares MD [employer] Consultant : Gear Nicker : Lori Soares MD Approver2 : Report Date : 08/24/2016 09:30:41 My Comment : HISTORY: on vent COMPARISON: 08/23/2016 FINDINGS: The endotracheal tube terminates 5.4 cm proximal to the hollie. The nasogastric tube terminates in the stomach. LUNGS: The lungs are well inflated. There is subsegmental atelectasis in the left lung base. No focal consolidation. PLEURA: No significant pleural effusion identified, no pneumothorax apparent. CARDIOVASCULAR: There is mild cardiomegaly. Status post CABG. Atherosclerotic aortic arch calcifications are present. OSSEOUS STRUCTURES: No significant abnormalities. VISUALIZED UPPER ABDOMEN: Normal. OTHER FINDINGS: None. IMPRESSION: Stable position of endotracheal and nasogastric tubes. No acute findings. Assessment and Plan (1) Seizure disorder Status: Acute (2) CVA (cerebral vascular accident) Status: Acute (3) CHF (congestive heart failure) Status: Acute (4) Atrial fibrillation with RVR Status: Acute - Assessment and Plan (Free Text) Assessment: A/P- 71 year old amle with multiple medical conditions including CVA, seizure disorder, CAD, CHF a.fib was admitted for seizures and found to have high lactate and temp of 102 in ED. pt. has clinically worsened and is lethargic and on vent continues to have fevers and is most likely central fevers. all blood and urine cx are negative sputum cx- negative slighl leukocytosis today could be secondary to the hemorrhage in the brain itself. normal procalcitonin level. CXR- negative as per report. 1. seizure 2. hemorragic CVA 3.Acutre renal insufficiency plan- No objection to continuing with the empiric zosyn that was already initiated by the primary team to cover for possible pneumonitis..( renal dose) day #6. can give one dose IV vanco today. seizure and Brain Hemorrhage management as per neurologist and neurosurgeon and ICU team. prognosis poor. Possible terminal extubation as per pt's family . ICU time 45 min.
--- NOTE | 2016-08-25 14:20 | CP.PCM.PN ---
Subjective - Date & Time of Evaluation Date of Evaluation: 08/25/16 Time of Evaluation: 13:45 - Subjective Subjective: REMAINS COMATOSED HEMODYNAMICALLY UNSTABLE QUADRIPLEGIC LABOURED BREATHING DNR AWAITING FOR FAMILY'S DECISION FOR TERMINAL EXTUBATION Objective - Vital Signs/Intake and Output Vital Signs (last 24 hours): Temp Pulse Resp BP Pulse Ox 102.7 F H 93 H 25 H 101/53 L 100 08/25/16 12:00 08/25/16 12:00 08/25/16 12:00 08/25/16 12:00 08/25/16 12:00 Intake and Output: 08/25/16 08/25/16 06:59 18:59 Intake Total 1380 674 Output Total 420 Balance 960 674 - Medications Medications: Current Medications Acetaminophen (Tylenol 650mg/20.3ml Solution Ud) 650 mg PO Q6 PRN PRN Reason: Temperature Last Admin: 08/25/16 08:35 Dose: 650 mg Atorvastatin Calcium (Lipitor) 40 mg PO DAILY [facility] Last Admin: 08/25/16 08:32 Dose: 40 mg Enalapril Maleate (Vasotec) 2.5 mg PO DAILY [facility] Last Admin: 08/25/16 08:33 Dose: 2.5 mg Folic Acid (Folic Acid) 1 mg PO DAILY [facility] Last Admin: 08/25/16 08:32 Dose: 1 mg Piperacillin Sod/Tazobactam (Sod 2.25 gm/ Sodium Chloride) 100 mls @ 100 mls/ hr IVPB Q6 [facility] Last Admin: 08/25/16 09:00 Dose: 100 mls/hr Levetiracetam (Keppra) 500 mg PO Q12 [facility] Last Admin: 08/25/16 08:32 Dose: 500 mg Metoprolol Tartrate (Lopressor) 25 mg PO Q12 [facility] Last Admin: 08/25/16 08:33 Dose: 25 mg Pantoprazole Sodium (Protonix Susp) 40 mg GT DAILY [facility] Last Admin: 08/25/16 08:33 Dose: 40 mg Thiamine HCl (Vitamin B1 Tab) 100 mg PO DAILY [facility] Last Admin: 08/24/16 08:32 Dose: 100 mg - Labs Labs: 08/25/16 05:00 08/25/16 05:00 PT 10.8 Seconds (9.8-13.1) 08/19/16 18:00 INR 1.0 (0.9-1.2) 08/19/16 18:00 APTT 22.9 Seconds (25.6-37.1) L 08/19/16 18:00 Assessment and Plan (1) Alcohol abuse with alcohol-induced disorder Status: Acute
[2016-08-25] MEDS ORDERED: Morphine 4 MG/ML VIAL IVP ONE (14:54)
--- NOTE | 2016-08-25 15:01 | CP.CCUPN ---
CCU Subjective - Physician Review Events Since Last Encounter (Free Text): 08/25/16 14:59 Patient family request terminal extubation and comfort care after discussing patient condition, order written CCU Objective - Vital Signs / Intake & Output Vital Signs (Last 4 hours): Vital Signs Temp Pulse Resp BP Pulse Ox 08/25/16 14:00 87 25 H 93/57 L 100 08/25/16 12:00 102.7 F H 93 H 25 H 101/53 L 100 Intake and Output (Last 8hrs): Intake & Output 08/24/16 08/25/16 08/25/16 22:59 06:59 14:59 Intake Total 920 990 964 Output Total 700 370 Balance 220 620 964 Intake: IV 100 130 4 Intake, Piggyback 100 100 Tube Feeding 420 560 560 Free Water Flush 300 300 300 Output: Gastric Amount 0 20 Right Nares 0 20 Urine 700 350 Urethral (Rosa) 700 350 Other: # Bowel Movements 1 - Physical Exam Head: Positive for: Atraumatic, Normocephalic Pupils: Positive for: PERRL Extroacular Muscles: Positive for: EOMI Mouth: Positive for: Dry Nose (Internal): Positive for: Normal Inspection Respiratory/Chest: Positive for: Clear to Auscultation, Good Air Exchange Cardiovascular: Positive for: Normal S1, S2, Irregular Rhythm. Negative for: Murmurs Abdomen: Positive for: Normal Bowel Sounds. Negative for: Tenderness, Distention, Rebound Upper Extremity: Positive for: NORMAL PULSES, Other (Pt is not resoponding to commands today. No resting tremmor seen). Negative for: Edema Neurological: Positive for: Other (No response to verbal stimuli). Negative for : Speech Normal Skin: Positive for: Warm, Normal Color Psychiatric: Positive for: Other (No response to verbal stimuli) - Medications Active Medications: Active Medications Generic Name Dose Route Start Last Admin Trade Name Freq PRN Reason Stop Dose Admin Acetaminophen 650 mg 08/22/16 13:07 08/25/16 08:35 Tylenol 650mg/20.3ml Solution Ud PO 650 mg Q6 PRN Administration Temperature Atorvastatin Calcium 40 mg 08/20/16 15:00 08/25/16 08:32 Lipitor PO 40 mg DAILY ROBERT Administration Enalapril Maleate 2.5 mg 08/21/16 16:30 08/25/16 08:33 Vasotec PO 2.5 mg DAILY ROBERT Administration Folic Acid 1 mg 08/21/16 09:00 08/25/16 08:32 Folic Acid PO 1 mg DAILY ROBERT Administration Piperacillin Sod/Tazobactam 100 mls @ 100 mls/hr 08/20/16 16:00 08/25/16 09: 00 Sod 2.25 gm/ Sodium Chloride IVPB 100 mls/hr Q6 ROBERT Administration Vancomycin HCl 1 gm/ Sodium 250 mls @ 166.667 mls/hr 08/25/16 14:49 Chloride IVPB 08/25/16 16:18 ONCE ONE Levetiracetam 500 mg 08/24/16 21:00 08/25/16 08:32 Keppra PO 500 mg Q12 ROBERT Administration Metoprolol Tartrate 25 mg 08/24/16 21:00 08/25/16 08:33 Lopressor PO 25 mg Q12 ROBERT Administration Pantoprazole Sodium 40 mg 08/23/16 09:00 08/25/16 08:33 Protonix Susp GT 40 mg DAILY ROBERT Administration Thiamine HCl 100 mg 08/21/16 09:00 08/24/16 08:32 Vitamin B1 Tab PO 100 mg DAILY ROBERT Administration - Patient Studies Lab Studies: Microbiology Studies 08/20/16 14:38 Blood Culture - Final Blood-Venous NO GROWTH AFTER 5 DAYS Gram Stain - Final TEST NOT PERFORMED 08/22/16 09:56 Gram Stain - Final Sputum Sputum Culture - Final NORMAL ORAL YOSELIN Lab Studies 08/25/16 08/25/16 08/25/16 Range/Units 05:02 05:00 05:00 WBC 14.1 H (4.8-10.8) K/uL RBC 3.05 L (4.40-5.90) Mil/uL Hgb 10.5 L (12.0-18.0) g/dL Hct 32.6 L (35.0-51.0) % MCV 106.7 H (80.0-94.0) fl MCH 34.5 H (27.0-31.0) pg MCHC 32.3 L (33.0-37.0) g/dL RDW 15.4 H (11.5-14.5) % Plt Count 112 L (130-400) K/uL MPV 11.5 (7.2-11.7) fl Neut % (Auto) 77.9 H (50.0-75.0) % Lymph % (Auto) 6.7 L (20.0-40.0) % [place] % (Auto) 14.6 H (0.0-10.0) % Eos % (Auto) 0.3 (0.0-4.0) % Baso % (Auto) 0.5 (0.0-2.0) % Neut # 11.0 H (1.8-7.0) K/uL Lymph # 0.9 L (1.0-4.3) K/uL [place] # 2.1 H (0.0-0.8) K/uL Eos # 0.0 (0.0-0.7) K/uL Baso # 0.1 (0.0-0.2) K/uL Sodium 147 (132-148) mmol/l Potassium 4.3 (3.6-5.0) MMOL/L Chloride 114 H (98-107) mmol/L Carbon Dioxide 26 (22-30) mmol/L Anion Gap 11 (10-20) BUN 31 H (9-20) mg/dl Creatinine 1.6 H (0.8-1.5) mg/dL Est GFR ( Amer) 52 Est GFR (Non-Af Amer) 43 POC Glucose (mg/dL) 134 H (65-110) mg/dL Random Glucose 127 H (75-110) mg/dL Calcium 8.0 L (8.4-10.2) mg/dL Total Bilirubin 1.1 (0.2-1.3) mg/dl AST 58 (17-59) U/L ALT 46 (21-72) U/L Alkaline Phosphatase 51 (38-126) U/L Total Protein 6.8 (6.3-8.2) G/DL Albumin 3.1 L (3.5-5.0) g/dL Globulin 3.6 (2.2-3.9) gm/dL Albumin/Globulin Ratio 0.9 L (1.0-2.1) 08/24/16 08/24/16 Range/Units 21:53 17:54 WBC (4.8-10.8) K/uL RBC (4.40-5.90) Mil/uL Hgb (12.0-18.0) g/dL Hct (35.0-51.0) % MCV (80.0-94.0) fl MCH (27.0-31.0) pg MCHC (33.0-37.0) g/dL RDW (11.5-14.5) % Plt Count (130-400) K/uL MPV (7.2-11.7) fl Neut % (Auto) (50.0-75.0) % Lymph % (Auto) (20.0-40.0) % [place] % (Auto) (0.0-10.0) % Eos % (Auto) (0.0-4.0) % Baso % (Auto) (0.0-2.0) % Neut # (1.8-7.0) K/uL Lymph # (1.0-4.3) K/uL [place] # (0.0-0.8) K/uL Eos # (0.0-0.7) K/uL Baso # (0.0-0.2) K/uL Sodium (132-148) mmol/l Potassium (3.6-5.0) MMOL/L Chloride (98-107) mmol/L Carbon Dioxide (22-30) mmol/L Anion Gap (10-20) BUN (9-20) mg/dl Creatinine (0.8-1.5) mg/dL Est GFR ( Amer) Est GFR (Non-Af Amer) POC Glucose (mg/dL) 139 H 163 H (65-110) mg/dL Random Glucose (75-110) mg/dL Calcium (8.4-10.2) mg/dL Total Bilirubin (0.2-1.3) mg/dl AST (17-59) U/L ALT (21-72) U/L Alkaline Phosphatase (38-126) U/L Total Protein (6.3-8.2) G/DL Albumin (3.5-5.0) g/dL Globulin (2.2-3.9) gm/dL Albumin/Globulin Ratio (1.0-2.1) Laboratory Results - last 24 hr 08/24/16 08/24/16 08/25/16 17:54 21:53 05:00 WBC 14.1 H RBC 3.05 L Hgb 10.5 L Hct 32.6 L MCV 106.7 H MCH 34.5 H MCHC 32.3 L RDW 15.4 H Plt Count 112 L MPV 11.5 Neut % (Auto) 77.9 H Lymph % (Auto) 6.7 L [place] % (Auto) 14.6 H Eos % (Auto) 0.3 Baso % (Auto) 0.5 Neut # 11.0 H Lymph # 0.9 L [place] # 2.1 H Eos # 0.0 Baso # 0.1 Sodium Potassium Chloride Carbon Dioxide Anion Gap BUN Creatinine Est GFR ( Amer) Est GFR (Non-Af Amer) POC Glucose (mg/dL) 163 H 139 H Random Glucose Calcium Total Bilirubin AST ALT Alkaline Phosphatase Total Protein Albumin Globulin Albumin/Globulin Ratio 08/25/16 08/25/16 05:00 05:02 WBC RBC Hgb Hct MCV MCH MCHC RDW Plt Count MPV Neut % (Auto) Lymph % (Auto) [place] % (Auto) Eos % (Auto) Baso % (Auto) Neut # Lymph # [place] # Eos # Baso # Sodium 147 Potassium 4.3 Chloride 114 H Carbon Dioxide 26 Anion Gap 11 BUN 31 H Creatinine 1.6 H Est GFR ( Amer) 52 Est GFR (Non-Af Amer) 43 POC Glucose (mg/dL) 134 H Random Glucose 127 H Calcium 8.0 L Total Bilirubin 1.1 AST 58 ALT 46 Alkaline Phosphatase 51 Total Protein 6.8 Albumin 3.1 L Globulin 3.6 Albumin/Globulin Ratio 0.9 L Fingerstick Blood Sugar Results: 182
--- NOTE | 2016-08-25 20:09 | CP.PCM.DIS ---
Provider - Provider Date of Admission: 08/19/16 18:53 Attending physician: Neymar Greer Consults: neurology consult neurosurgery consult cardiology Id consult hospice Time Spent in preparation of Discharge (in minutes): 20 Hospital Course - Lab Results Lab Results: Micro Results 08/20/16 14:38 Blood-Venous Blood Culture - Final NO GROWTH AFTER 5 DAYS 08/20/16 14:38 Blood-Venous Gram Stain - Final TEST NOT PERFORMED 08/22/16 09:56 Sputum Gram Stain - Final 08/22/16 09:56 Sputum Sputum Culture - Final NORMAL ORAL YOSELIN 08/20/16 09:45 Urine,Rosa Urine Culture - Final No Growth (<1,000 CFU/ML) 08/19/16 21:00 Naris MRSA Culture (Admit) - Final MRSA NOT DETECTED Most Recent Lab Values WBC 14.1 K/uL (4.8-10.8) H 08/25/16 05:00 RBC 3.05 Mil/uL (4.40-5.90) L 08/25/16 05:00 Hgb 10.5 g/dL (12.0-18.0) L 08/25/16 05:00 Hct 32.6 % (35.0-51.0) L 08/25/16 05:00 MCV 106.7 fl (80.0-94.0) H 08/25/16 05:00 MCH 34.5 pg (27.0-31.0) H 08/25/16 05:00 MCHC 32.3 g/dL (33.0-37.0) L 08/25/16 05:00 RDW 15.4 % (11.5-14.5) H 08/25/16 05:00 Plt Count 112 K/uL (130-400) L 08/25/16 05:00 MPV 11.5 fl (7.2-11.7) 08/25/16 05:00 Neut % (Auto) 77.9 % (50.0-75.0) H 08/25/16 05:00 Lymph % (Auto) 6.7 % (20.0-40.0) L 08/25/16 05:00 [place] % (Auto) 14.6 % (0.0-10.0) H 08/25/16 05:00 Eos % (Auto) 0.3 % (0.0-4.0) 08/25/16 05:00 Baso % (Auto) 0.5 % (0.0-2.0) 08/25/16 05:00 Neut # 11.0 K/uL (1.8-7.0) H 08/25/16 05:00 Lymph # 0.9 K/uL (1.0-4.3) L 08/25/16 05:00 [place] # 2.1 K/uL (0.0-0.8) H 08/25/16 05:00 Eos # 0.0 K/uL (0.0-0.7) 08/25/16 05:00 Baso # 0.1 K/uL (0.0-0.2) 08/25/16 05:00 Neutrophils % (Manual) 79 % (42-75) H 08/24/16 05:00 Lymphocytes % (Manual) 6 % (20-50) L 08/24/16 05:00 Reactive Lymphs % 4 % (0-0) H 08/19/16 18:00 Monocytes % (Manual) 15 % (0-10) H 08/24/16 05:00 Platelet Estimate Decreased (NORMAL) L 08/24/16 05:00 Plt Clumps, EDTA Present 08/19/16 18:00 Large Platelets Present 08/19/16 18:00 Giant Platelets Present 08/19/16 18:00 Hypochromasia (manual) Slight 08/19/16 18:00 Anisocytosis (manual) Slight 08/24/16 05:00 Macrocytosis (manual) Moderate 08/24/16 05:00 Tear Drop Cells Slight 08/19/16 18:00 PT 10.8 Seconds (9.8-13.1) 08/19/16 18:00 INR 1.0 (0.9-1.2) 08/19/16 18:00 APTT 22.9 Seconds (25.6-37.1) L 08/19/16 18:00 pCO2 28 mm/Hg (35-45) L 08/24/16 05:10 pO2 148 mm/Hg (80-100) H 08/24/16 05:10 HCO3 27.0 mmol/L (21-28) 08/24/16 05:10 ABG pH 7.55 (7.35-7.45) H 08/24/16 05:10 ABG Total CO2 25.4 mmol/L (22-28) 08/24/16 05:10 ABG O2 Saturation 99.1 % (95-98) H 08/24/16 05:10 ABG O2 Content 14.8 ML/dL (15-23) L 08/24/16 05:10 ABG Base Excess 2.7 mmol/L (-2.0-3.0) 08/24/16 05:10 ABG Hemoglobin 10.7 g/dL (11.7-17.4) L 08/24/16 05:10 ABG Carboxyhemoglobin 1.1 % (0.5-1.5) 08/24/16 05:10 POC ABG HHb (Measured) 0.9 % (0.0-5.0) 08/24/16 05:10 ABG Methemoglobin 1.6 % (0.0-3.0) 08/24/16 05:10 ABG O2 Capacity 14.9 mL/dL (16-24) L 08/24/16 05:10 Ezra Test Yes 08/24/16 05:10 VBG pH 7.46 (7.32-7.43) H 08/19/16 18:25 VBG pCO2 39 mmHg (40-60) L 08/19/16 18:25 VBG HCO3 26.1 mmol/L 08/19/16 18:25 VBG Total CO2 28.9 mmol/L (22-28) H 08/19/16 18:25 VBG O2 Sat (Calc) 37.1 % (40-65) L 08/19/16 18:25 VBG Base Excess 3.7 mmol/L (0.0-2.0) H 08/19/16 18:25 VBG Potassium 3.6 mmol/L (3.6-5.2) 08/19/16 18:25 A-a O2 Difference 102.0 mm/Hg 08/24/16 05:10 Hgb O2 Saturation 96.4 % (95.0-98.0) 08/24/16 05:10 Sodium 139.0 mmol/L (132-148) 08/19/16 18:25 Chloride 101.0 mmol/L (98-107) 08/19/16 18:25 Glucose 154 mg/dL (75-110) H 08/19/16 18:25 Lactate 5.3 mmol/L (0.7-2.1) H* 08/19/16 18:25 Liter Flow 3 08/21/16 18:18 Vent Mode A/c 08/24/16 05:10 Mechanical Rate 12 08/24/16 05:10 FiO2 40.0 % 08/24/16 05:10 Tidal Volume 500 08/24/16 05:10 PEEP 5 08/24/16 05:10 Blood Gas Comments Lactate 5.3 08/19/16 18:25 Crit Value Called To jayce Lopez 08/19/16 18:25 Crit Value Called By 203 08/19/16 18:25 Crit Value Read Back N 08/19/16 18:25 Blood Gas Notified Time 18308/19/16 18:25 Sodium 147 mmol/l (132-148) 08/25/16 05:00 Potassium 4.3 MMOL/L (3.6-5.0) 08/25/16 05:00 Chloride 114 mmol/L (98-107) H 08/25/16 05:00 Carbon Dioxide 26 mmol/L (22-30) 08/25/16 05:00 Anion Gap 11 (10-20) 08/25/16 05:00 BUN 31 mg/dl (9-20) H 08/25/16 05:00 Creatinine 1.6 mg/dL (0.8-1.5) H 08/25/16 05:00 Est GFR ( Amer) 52 08/25/16 05:00 Est GFR (Non-Af Amer) 43 08/25/16 05:00 POC Glucose (mg/dL) 134 mg/dL (65-110) H 08/25/16 05:02 Random Glucose 127 mg/dL (75-110) H 08/25/16 05:00 Hemoglobin A1c 5.2 % (4.2-6.5) 08/19/16 19:57 Serum Osmolality 321 mosm/kg (272-300) H 08/24/16 08:20 Calcium 8.0 mg/dL (8.4-10.2) L 08/25/16 05:00 Phosphorus 4.2 mg/dl (2.5-4.5) 08/23/16 04:20 Magnesium 2.3 MG/DL (1.6-2.3) 08/23/16 04:20 Total Bilirubin 1.1 mg/dl (0.2-1.3) 08/25/16 05:00 Direct Bilirubin 0.5 mg/ml (0.0-0.4) H 08/19/16 19:57 AST 58 U/L (17-59) 08/25/16 05:00 ALT 46 U/L (21-72) 08/25/16 05:00 Alkaline Phosphatase 51 U/L (38-126) 08/25/16 05:00 Ammonia 11 umo/L (16-60) L D 08/19/16 20:00 Total Creatine Kinase 111 U/L (55-170) 08/22/16 09:10 Troponin I 0.2840 ng/mL (0.00-0.120) H* 08/23/16 16:15 NT-Pro-B Natriuret Pep 73994 pg/ml (0-900) H 08/19/16 18:00 Total Protein 6.8 G/DL (6.3-8.2) 08/25/16 05:00 Albumin 3.1 g/dL (3.5-5.0) L 08/25/16 05:00 Globulin 3.6 gm/dL (2.2-3.9) 08/25/16 05:00 Albumin/Globulin Ratio 0.9 (1.0-2.1) L 08/25/16 05:00 Vitamin B12 408 pg/mL (239-931) 08/19/16 19:57 Homocysteine 21.4 umol/L ( <11.4) H 08/19/16 20:00 Procalcitonin 0.14 NG/ML (0.19-0.49) L 08/22/16 09:10 Prolactin 34.6 ng/mL (3.7-17.9) H 08/19/16 19:57 Venous Blood Potassium 3.6 mmol/L (3.6-5.2) 08/19/16 18:25 Urine Color Naomie (YELLOW) 08/19/16 20:15 Urine Clarity Cloudy (Clear) 08/19/16 20:15 Urine pH 5.0 (5.0-8.0) 08/19/16 20:15 Ur Specific [place] 1.031 (1.003-1.030) H 08/19/16 20:15 Urine Protein >=500 mg/dL (NEGATIVE) 08/19/16 20:15 Urine Glucose (UA) Neg mg/dL (Normal) 08/19/16 20:15 Urine Ketones Trace mg/dL (NEGATIVE) 08/19/16 20:15 Urine Blood Small (NEGATIVE) 08/19/16 20:15 Urine Nitrate Negative (NEGATIVE) 08/19/16 20:15 Urine Bilirubin Small (NEGATIVE) 08/19/16 20:15 Urine Urobilinogen 2.0 mg/dL (0.2-1.0) 08/19/16 20:15 Ur Leukocyte Esterase Mod Bar/uL (Negative) 08/19/16 20:15 Urine RBC (Auto) 13 /hpf (0-3) H 08/19/16 20:15 Urine Microscopic WBC 14 /hpf (0-5) H 08/19/16 20:15 Ur Squamous Epith Cells < 1 /hpf (0-5) 08/19/16 20:15 Urine Bacteria Rare (<OCC) 08/19/16 20:15 Alcohol, Quantitative < 10 mg/dl (0-10) 08/19/16 18:00 RPR Nonreactive (NONREACTIVE) 08/19/16 19:57 Blood Type A POSITIVE 08/20/16 20:27 Blood Type Confirm A POSITIVE 08/20/16 20:32 Antibody Screen Negative 08/20/16 20:27 BBK History Checked No verified bt 08/20/16 20:27 - Hospital Course Hospital Course: 71 years old male with hx of non compliance with medication, CVA, CAD s/p CABG, CHF, Alcohol abuse with intoxication, A Fib, and Seizure was brought from home to the ED because of 3 episodes of witnessed seizures. In the ED patient was found to be in A Fib with RVR, Temperature of 102F, Dysarthric, with left sided weakness and a NIHSS of 13. CT head in ER showed old CVA and no acute infarct or bleed. Neurology was consulted and patient started on ASA, Lovenox therapeutic , lipitor and cardizem drip for rate control. MRI of the brain performed 12 hours from presentation showed large right parietal area bleed. ASa , lovenox were held and Vitamin K and platelet ordered to reverse their effect. Neurology and neurosurgery informed. He was given 1 dose DDAVP , started on Mannitol drip and Keppra for seizure. Neurologically patient worsened. He was intubated for airway protection but eventually became comatose, unresponsive to verbal or noxious stimuli, quadriplegic . After discussion with family they decided for terminal extubation and palliative / comfort care. Patient was extubated today and hospice was consulted . Will d/c patient under hospice care 1. Intracranial Bleed unresponsive to pain or noxious stimuli, comatose initial CT head showed old CVA , no bleed no acute stroke MRI head showed :Large right parietal hemorrhage with edema Follow up CT showed 5x7x 6.3 right parietal intraparenchymal hemorrhage , extensive edema with midline shift Neurology and neurosurgery were consulted Patient is not a surgical candidate ASA and lovenox held Vitamin K , Platelet transfusion given DDAVP 1 dose was given as well as Mannitol to decrease the intra cerebral edema- on hold , restart if Osm less than 320 on Keppra for seizure Was intubated for airway protection and today terminally extubated Daughter Renetta who is POA . Family wants in hospital hospice care 2. Seizure episodes most likely due to new CVA had episodes of focal tremors to RUE MRI with large right parietal bleed Neurology consulted . Dr. Celestin started on Keppra for seizure ativan PRN Thiamine, folic acid , MVI 3. Suspected Aspiration Pneumonia-- less likely Tmax [address] Rodriguez Manager Of Program ID consult appreciated Continue Zosyn empirically blood and sputum cx with no growth rpt CXR 08/24 :no focal consolidation 4. Suspected Sepsis- unlikely - ruled out procalcitonin - normal Cultures with no growth repeat CXR showed no infiltrate Continue Zosyn lactic acid elevation most likely secondary to tissue hypoperfusion and seizure episodes consult with Dr Tello ID appreciated 5. A Fib with RVR now rate controlled Cardizem drip discontinued on Metoprolo no anticoagulation due to intracranial bleed cardiology consult with Dr James appreciated Echo showed LVH and decreased EF 35-40 % 6. Elevated Troponin probably related to Afib with RVR less likely NSTEMI cardiology consulted Echo showed EF 35-40 % on lopressor d/c ASA due to intracranial bleed 7. Chronic CHF systolic dysfunction Cardiology consulted EF 35 -40 % on Lopressor and enalapril 8. JONELLE Most likely prerenal 9. DM ruled out HbA1c 5.4 10. Chronic Thrombocytopenia Most likely related to ETOH abuse 11. Stress ulcer prophylaxis pantoprazole 12. DVT Prophylaxis SCD d/c lovenox 13. Hypokalemia replaced with KCl 14. History of ETOH dependence / alcoholism ETOH levels < 10 started thiamine, Folic acid Ativan PRN for seizure 15. Feeding Jevity via NGT Discharge Exam - Head Exam Head Exam: NORMOCEPHALIC Additional comments: comatose - Eye Exam Pupil Exam: Mydriatic (responsive pupils) - ENT Exam ENT Exam: Mucous Membranes Dry, Normal Exam - Respiratory Exam Respiratory Exam: Rhonchi Additional comments: carse breath sounds , labored - Cardiovascular Exam Cardiovascular Exam: Irregular Rhythm - GI/Abdominal Exam GI & Abdominal Exam: Soft. absent: Guarding, Rebound - Extremities Exam Extremities exam: normal capillary refill, normal inspection, pedal pulses present - Neurological Exam Additional comments: comatose not responsive to verbal or noxious stimuli Discharge Plan - Follow Up Plan Condition: CRITICAL Disposition: HOSPICE - MEDICAL FACILITY Patient education suggested?: No
[2016-08-25] MEDS ORDERED: Morphine 4 MG/ML VIAL IVP PRN (20:45)
[2016-08-25] MEDS ORDERED: Metoprolol 1 mg/ml Inj IVP PRN (20:47)
[2016-08-25] MEDS ORDERED: levETIRAcetam 500 MG in Sodium Chloride 0.9% 100 ML IVPB SCH (21:00)
--- NOTE | 2016-08-25 21:23 | CP.PCM.HP ---
History of Present Illness - History of Present Illness History of Present Illness: CC: transfer to floor for hospice care HPI: Briefly this is a 71 y/o male with multiple medical conditions who was brought into the hospital initially with multiple new onset seizures. He was diagnosed with a CVA intially and started on ASA, Lipitor, and also a diltiazem gtt for A fib with RVR. f/u MRI the next day showed a large R parietal bleed/ hemorrhagic conversion. Patient was taken of ASA and other blood thinning medications. Vit K and Plt were administered. Patient did develop midline shift/ worsening mental status and eventually intubated and started on mannitol. Patient continued to decline and became comatose and unresponsive. Today, daytime time discussed terminal extubation and palliative care/hospice with him and decision was made to move patient to hospice. ROS: cannot perform MHx/SHx: CVA with hemorrhagic conversion, CAD/CABG, CHF, A fib, and EtOH abuse Allergies: NKDA Fam/Soc Hx: No relevant findings Surrogate: Sister, at bedside; contact info in chart Physical Exam: Gen: Patient not responsive currently to stimuli CV: irregularly irregular, no m/g/r Lungs: Rhonchi throughout Abd: NT, ND, +BS Neuro: Patient does not respond significantly to any stimuli A/P: 71 y/o male terminally extubated and placed on comfort care this evening after ICH following CVA. -Transfer to floor -PRN ativan for seizures IV; Keppra IV for seizures -PRN morphine for pain/discomfort -PRN metoprolol for severe tachycardia or HTN -Hospice consult Present on Admission - Present on Admission Any Indicators Present on Admission: No Past Patient History - Tetanus Immunizations Tetanus Immunization: >10 years Ago - Past Medical History & Family History Past Medical History?: Yes - Past Social History Smoking Status: Light Smoker < 10 Cigarettes Daily Chewing Tobacco Use: No Cigar Use: No Alcohol: Other (ETOH ABUSE) Home Situation {Lives}: With Family - CARDIAC Hx Atrial Fibrillation: Yes Hx Cardia Arrhythmia: Yes Hx Congestive Heart Failure: Yes Hx Hypercholesterolemia: Yes Hx Hypertension: Yes - PULMONARY Hx Respiratory Disorders: No - NEUROLOGICAL Hx 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) Hx Seizures: Yes - HEENT Hx HEENT Problems: No - RENAL Hx Chronic Kidney Disease: No Hx Kidney Stones: No - ENDOCRINE/METABOLIC Hx Diabetes Mellitus Type 2: Yes - HEMATOLOGICAL/ONCOLOGICAL Hx Blood Disorders: No - INTEGUMENTARY Hx Dermatological Problems: No - MUSCULOSKELETAL/RHEUMATOLOGICAL Hx Arthritis: Yes - GASTROINTESTINAL Hx Constipation: Yes - GENITOURINARY/GYNECOLOGICAL Hx Genitourinary Disorders: No - PSYCHIATRIC Hx Psychophysiologic Disorder: Yes Hx Substance Use: No - SURGICAL HISTORY Hx Coronary Artery Bypass Graft: Yes Hx Coronary Stent: Yes - ANESTHESIA Hx Anesthesia: Yes Hx Anesthesia Reactions: No Meds Allergies/Adverse Reactions: Allergies Allergy/AdvReac Type Severity Reaction Status Date / Time No Known Allergies Allergy Verified 09/15/15 10:46 Results - Vital Signs Recent Vital Signs: Last Vital Signs Temp 101.2 F H 08/25/16 20:00 Pulse 107 H 08/25/16 20:00 Resp 27 H 08/25/16 20:00 BP 146/72 08/25/16 20:00 Pulse Ox 100 08/25/16 20:00 - Labs Result Diagrams: 08/25/16 05:00 08/25/16 05:00 Labs: Laboratory Results - last 24 hr 08/24/16 08/25/16 08/25/16 21:53 05:00 05:00 WBC 14.1 H RBC 3.05 L Hgb 10.5 L Hct 32.6 L MCV 106.7 H MCH 34.5 H MCHC 32.3 L RDW 15.4 H Plt Count 112 L MPV 11.5 Neut % (Auto) 77.9 H Lymph % (Auto) 6.7 L [place] % (Auto) 14.6 H Eos % (Auto) 0.3 Baso % (Auto) 0.5 Neut # 11.0 H Lymph # 0.9 L [place] # 2.1 H Eos # 0.0 Baso # 0.1 Sodium 147 Potassium 4.3 Chloride 114 H Carbon Dioxide 26 Anion Gap 11 BUN 31 H Creatinine 1.6 H Est GFR ( Amer) 52 Est GFR (Non-Af Amer) 43 POC Glucose (mg/dL) 139 H Random Glucose 127 H Calcium 8.0 L Total Bilirubin 1.1 AST 58 ALT 46 Alkaline Phosphatase 51 Total Protein 6.8 Albumin 3.1 L Globulin 3.6 Albumin/Globulin Ratio 0.9 L 08/25/16 05:02 WBC RBC Hgb Hct MCV MCH MCHC RDW Plt Count MPV Neut % (Auto) Lymph % (Auto) [place] % (Auto) Eos % (Auto) Baso % (Auto) Neut # Lymph # [place] # Eos # Baso # Sodium Potassium Chloride Carbon Dioxide Anion Gap BUN Creatinine Est GFR ( Amer) Est GFR (Non-Af Amer) POC Glucose (mg/dL) 134 H Random Glucose Calcium Total Bilirubin AST ALT Alkaline Phosphatase Total Protein Albumin Globulin Albumin/Globulin Ratio
[2016-08-26 00:58] VITALS: BP 167/76; PULSE 107; RESP 25; TEMP 102.6
[2016-08-26] MEDS ORDERED: Morphine 100 MG in Sodium Chloride 0.9% 100 ML IVPB SCH (01:00)
[2016-08-27 11:03] LABS: ABG ALLEN TEST YES; ARTERIAL BLOOD GAS HCO3 25.9 mmol/L (21-28); ARTERIAL BLOOD GAS HEMOGLOBIN 11.4 g/dL (11.7-17.4); ARTERIAL BLOOD GAS O2 CONTENT 15.8 ML/dL (15-23); ARTERIAL BLOOD GAS O2 SAT 98.9 % (95-98); ARTERIAL BLOOD GAS PCO2 34 mm/Hg (35-45); ARTERIAL BLOOD GAS PH 7.47 (7.35-7.45); ARTERIAL BLOOD GAS PO2 182 mm/Hg (80-100); ARTERIAL BLOOD GAS TCO2 25.7 mmol/L (22-28)
== END 2016-08-25 23:47 | disposition hospice, inpatient (51) | DRG 64 ==
LOC: H.ER 17:58 → H.ERHOLD 18:53 → H.ICU/CCU 20:28 → H.MEDSURG1 08-25 00:09
PROVIDERS: ADMIT Internal Medicine; ATTEND Internal Medicine
PROC: 0BH17EZ Insertion of Endotracheal Airway into Trachea, Via Natural or Artificial Opening (ICD-10-PCS; principal; 2016-08-21)
PROC: 5A1945Z Respiratory Ventilation, 24-96 Consecutive Hours (ICD-10-PCS; 2016-08-21)
PROC: 06HM33Z Insertion of Infusion Device into Right Femoral Vein, Percutaneous Approach (ICD-10-PCS; 2016-08-23)
DX: I61.1 Nontraumatic intracerebral hemorrhage in hemisphere, cortical (principal); J96.90 Respiratory failure, unspecified, unspecified whether with hypoxia or hypercapnia; R40.20 Unspecified coma; G82.50 Quadriplegia, unspecified; N17.9 Acute kidney failure, unspecified; E87.2 Acidosis; D69.59 Other secondary thrombocytopenia; I13.0 Hypertensive heart and chronic kidney disease with heart failure and stage 1 through stage 4 chronic kidney disease, or unspecified chronic kidney disease; I50.22 Chronic systolic (congestive) heart failure; I48.91 Unspecified atrial fibrillation; R47.01 Aphasia; G81.94 Hemiplegia, unspecified affecting left nondominant side; F10.29 Alcohol dependence with unspecified alcohol-induced disorder; G30.9 Alzheimer's disease, unspecified; I25.10 Atherosclerotic heart disease of native coronary artery without angina pectoris; R47.1 Dysarthria and anarthria; Z91.14 Patient's other noncompliance with medication regimen; I61.9 Nontraumatic intracerebral hemorrhage, unspecified; Z95.1 Presence of aortocoronary bypass graft; Z95.5 Presence of coronary angioplasty implant and graft; N18.9 Chronic kidney disease, unspecified; G40.901 Epilepsy, unspecified, not intractable, with status epilepticus; E87.6 Hypokalemia; E78.5 Hyperlipidemia, unspecified; I73.9 Peripheral vascular disease, unspecified; R73.9 Hyperglycemia, unspecified; E86.0 Dehydration; Z51.5 Encounter for palliative care; Z66 Do not resuscitate; Y90.9 Presence of alcohol in blood, level not specified; D64.9 Anemia, unspecified

== ENCOUNTER 2016-08-26 00:51 | Inpatient (IN) | payer MEDICARE, OTHER ==
--- NOTE | 2016-08-26 02:08 | CP.PCM.HP ---
History of Present Illness - History of Present Illness History of Present Illness: CC: transfer to floor for hospice care HPI: Briefly this is a 71 y/o male with multiple medical conditions who was brought into the hospital initially with multiple new onset seizures. He was diagnosed with a CVA intially and started on ASA, Lipitor, and also a diltiazem gtt for A fib with RVR. f/u MRI the next day showed a large R parietal bleed/ hemorrhagic conversion. Patient was taken of ASA and other blood thinning medications. Vit K and Plt were administered. Patient did develop midline shift/ worsening mental status and eventually intubated and started on mannitol. Patient continued to decline and became comatose and unresponsive. Today, daytime time discussed terminal extubation and palliative care/hospice with him and decision was made to move patient to hospice. ROS: cannot perform MHx/SHx: CVA with hemorrhagic conversion, CAD/CABG, CHF, A fib, and EtOH abuse Allergies: NKDA Fam/Soc Hx: No relevant findings Surrogate: Sister, at bedside; contact info in chart Physical Exam: Gen: Patient not responsive currently to stimuli CV: irregularly irregular, no m/g/r Lungs: Rhonchi throughout Abd: NT, ND, +BS Neuro: Patient does not respond significantly to any stimuli A/P: 71 y/o male terminally extubated and placed on comfort care this evening after ICH following CVA. -Transfer to floor -PRN ativan for seizures IV; Keppra IV for seizures -PRN morphine for pain/discomfort -PRN metoprolol for severe tachycardia or HTN -Hospice consult Present on Admission - Present on Admission Any Indicators Present on Admission: No Past Patient History - Tetanus Immunizations Tetanus Immunization: >10 years Ago - Past Medical History & Family History Past Medical History?: Yes - Past Social History Smoking Status: Light Smoker < 10 Cigarettes Daily Chewing Tobacco Use: No - CARDIAC Hx Atrial Fibrillation: Yes Hx Cardia Arrhythmia: Yes Hx Congestive Heart Failure: Yes Hx Hypercholesterolemia: Yes Hx Hypertension: Yes - PULMONARY Hx Respiratory Disorders: No - NEUROLOGICAL Hx 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) Hx Seizures: Yes - HEENT Hx HEENT Problems: No - RENAL Hx Chronic Kidney Disease: No Hx Kidney Stones: No - ENDOCRINE/METABOLIC Hx Diabetes Mellitus Type 2: Yes - HEMATOLOGICAL/ONCOLOGICAL Hx Blood Disorders: No - INTEGUMENTARY Hx Dermatological Problems: No - MUSCULOSKELETAL/RHEUMATOLOGICAL Hx Arthritis: Yes - GASTROINTESTINAL Hx Constipation: Yes - GENITOURINARY/GYNECOLOGICAL Hx Genitourinary Disorders: No - PSYCHIATRIC Hx Psychophysiologic Disorder: Yes Hx Substance Use: No - SURGICAL HISTORY Hx Coronary Artery Bypass Graft: Yes Hx Coronary Stent: Yes - ANESTHESIA Hx Anesthesia: Yes Hx Anesthesia Reactions: No Meds Allergies/Adverse Reactions: Allergies Allergy/AdvReac Type Severity Reaction Status Date / Time No Known Allergies Allergy Verified 09/15/15 10:46
[2016-08-26] MEDS ORDERED: Metoprolol 1 mg/ml Inj IVP PRN (02:10)
[2016-08-26] MEDS ORDERED: Scopolamine 1.5 mg/24 hr Patch TD SCH (02:15)
[2016-08-26] MEDS: Morphine 100 MG in Sodium Chloride 0.9% 100 ML IVPB SCH (02:44)
[2016-08-26] MEDS: levETIRAcetam 500 MG in Sodium Chloride 0.9% 100 ML IVPB SCH ×2 (08:35→20:19)
[2016-08-27] MEDS: Morphine 100 MG in Sodium Chloride 0.9% 100 ML IVPB SCH (02:15)
[2016-08-27] MEDS ORDERED: Morphine 100 MG in Sodium Chloride 0.9% 100 ML IVPB SCH (12:06)
--- NOTE | 2016-08-27 12:06 | CP.PCM.PN ---
Subjective - Date & Time of Evaluation Date of Evaluation: 08/27/16 Time of Evaluation: 11:45 - Subjective Subjective: Pt is now on Hospice Care On Morphine drip Pt looks comfortable Objective - Vital Signs/Intake and Output Vital Signs (last 24 hours): Temp Pulse Resp BP Pulse Ox 101.6 F H 112 H 18 138/77 93 L 08/27/16 09:00 08/27/16 09:00 08/27/16 09:00 08/27/16 09:00 08/27/16 09:00 - Medications Medications: Current Medications Acetaminophen (Tylenol 650 Mg Supp) 650 mg MT Q6 PRN PRN Reason: Fever >100.4 F Last Admin: 08/27/16 06:01 Dose: 650 mg Morphine Sulfate 100 mg/ (Sodium Chloride) 104 mls @ 1.04 mls/hr IVPB .Q24H ROBERT ; 1 MG/HR PRN Reason: Protocol Last Admin: 08/27/16 02:15 Dose: Not Given Levetiracetam 500 mg/ Sodium (Chloride) 105 mls @ 210 mls/hr IVPB Q12 ROBERT Last Admin: 08/26/16 20:19 Dose: 210 mls/hr Lorazepam (Ativan) 2 mg IVP Q6 PRN PRN Reason: seizures, anxiety Metoprolol Tartrate (Lopressor) 5 mg IVP Q6H PRN PRN Reason: tachycardia > 110, SBP > 190 Scopolamine (Transderm-Scop) 1 patch TD Q3D ROBERT Last Admin: 08/26/16 03:18 Dose: 1 patch - Constitutional Appears: Older Than Stated Age, Chronically Ill - Head Exam Head Exam: NORMOCEPHALIC - ENT Exam ENT Exam: Mucous Membranes Dry - Respiratory Exam Respiratory Exam: Accessory Muscle Use, Rales, Rhonchi, Respiratory Distress - Cardiovascular Exam Cardiovascular Exam: Tachycardia, Irregular Rhythm, +S1, +S2 - GI/Abdominal Exam GI & Abdominal Exam: Distended - Extremities Exam Extremities Exam: Pedal Edema Assessment and Plan - Assessment and Plan (Free Text) Assessment: 71 y/o male with multiple medical conditions who was brought into the hospital initially with multiple new onset seizures. He was diagnosed with a CVA and initially started on ASA, Lipitor, and also a diltiazem gtt for A fib with RVR. f/u MRI the next day showed a large R parietal bleed/hemorrhagic conversion. Patient was taken off ASA and other blood thinning medications. Vit K and Plt were administered. Patient did develop midline shift/worsening mental status and eventually intubated and started on mannitol. Patient continued to decline and became comatose and unresponsive. Per family decision , pt was terminally extubated and made Hospice Care. 1. Acute CVA with Hemorrhagic Conversion 2. Seizure sec to to Intracranial Bleed 3. Respiratory Failure, Hypoxic 4. Atrial Fibrillation, chronic 5. Alcoholism - cont Comfort Care - Increase Morphine drip to 2 mg/hr - cont Scopolamine - Oxygen for comfort - cont Mouna
[2016-08-27] MEDS: levETIRAcetam 500 MG in Sodium Chloride 0.9% 100 ML IVPB SCH (14:00)
[2016-08-28 00:52] VITALS: BP 99/62; PULSE 115; RESP 20; TEMP 101.9; O2SAT 94
[2016-08-28] MEDS ORDERED: levETIRAcetam 500 MG in Sodium Chloride 0.9% 100 ML IVPB SCH (02:00)
--- NOTE | 2016-08-28 02:18 | CP.PCM.PRO ---
Pronouncement of Note - Clinical Findings Physical Exam: No Response Verbal/Painful Stimuli, Absent Peripheral Pulses{ Carotid & Femoral}, Absent Heart & Breath Sounds, No Pupillary Light Reflex, No Corneal Reflex, Pupils Fixed & Dilated, Absence of Vital Signs - Pronouncement Time Time of Pronouncement of : 02:02 - Notifications Pronouncement Notifications: Family Notified, Atending Notified Tipping Machine Operator Automatic Notified: No - Autopsy Autopsy Requested: No - [place] [id number] Additional Comments: The patient was in Hospice care
--- NOTE | 2016-08-28 11:11 | CP.PCM.DIS ---
Provider - Provider Date of Admission: 08/26/16 00:51 Attending physician: Nick Singh MD Primary care physician: Nick Singh MD Time Spent in preparation of Discharge (in minutes): 35 Diagnosis - Discharge Diagnosis (1) Acute intra-cranial hemorrhage Status: Acute (2) Atrial fibrillation with RVR Status: Acute (3) CHF (congestive heart failure) Status: Acute (4) New onset seizure Status: Acute (5) Thrombocytopenia Status: Acute (6) CAD (coronary artery disease) Status: Chronic Hospital Course - Hospital Course Hospital Course: Briefly this is a 71 y/o male with multiple medical conditions who was brought into the hospital initially with multiple new onset seizures. He was diagnosed with a CVA intially and started on ASA, Lipitor, and also a diltiazem gtt for A fib with RVR. f/u MRI the next day showed a large R parietal bleed/hemorrhagic conversion. Patient was taken of ASA and other blood thinning medications. Vit K and Plt were administered. Patient did develop midline shift/worsening mental status and eventually intubated and started on mannitol. Patient continued to decline and became comatose and unresponsive. family requested terminal extubation and decision was made to move patient to hospice management on On 08/28/16 at 2:02 AM the patient was pronounced . The body was released The family was present. Cause Of was " Acute Intracraneal Hemorrhage" - Date & Time of H&P Date of H&P: 08/26/16 Time of H&P: 02:07 Discharge Exam - Head Exam Head Exam: NORMOCEPHALIC Discharge Plan - Follow Up Plan Condition: Disposition: WITH WITHOUT AUTOPSY
== END 2016-08-28 03:10 | DRG 64 ==
LOC: H.MEDSURG1 00:51
PROVIDERS: ADMIT Internal Medicine; ATTEND Internal Medicine
DX: I62.9 Nontraumatic intracranial hemorrhage, unspecified (principal); J96.91 Respiratory failure, unspecified with hypoxia; R40.20 Unspecified coma; I11.0 Hypertensive heart disease with heart failure; I50.9 Heart failure, unspecified; R56.9 Unspecified convulsions; D69.6 Thrombocytopenia, unspecified; I25.10 Atherosclerotic heart disease of native coronary artery without angina pectoris; Z66 Do not resuscitate; I48.2 Chronic atrial fibrillation; F10.20 Alcohol dependence, uncomplicated; Z51.5 Encounter for palliative care; Z95.1 Presence of aortocoronary bypass graft